=== PATIENT | female | born 1990 | race African-American/Black ===

== ENCOUNTER 2016-12-11 18:44 | Emergency (ER) | payer OTHER ==
[~2016-12-11] VITALS: Ht 157.5 cm; Wt 70.0 kg
[~2016-12-11 18:44] MED LIST: ALBU2.5I INH; TASI150C PO
[2016-12-11 18:46] VITALS: BP 129/69; PULSE 90; RESP 20; TEMP 98.5; O2SAT 96
[2016-12-11 19:30] VITALS: O2SAT 100
[2016-12-11] MEDS ORDERED: SODIUM CHLORIDE 0.9% FLUSH 5 ML FLUSH IVF PRN (19:30)
[2016-12-11 20:01] LABS: AUTOMATED NEUTROPHIL # 4.3 TH/MM3 (1.8-7.7); BASOPHIL # 0.1 TH/MM3 (0-0.2); BASOPHIL % 0.9 % (0.0-2.0); EOSINOPHIL # 0.1 TH/MM3 (0-0.4); EOSINOPHIL % 1.4 % (0.0-4.0); HEMATOCRIT 37.2 % (35.0-46.0); HEMO FLAGS DIFF FINAL; LYMPH % 25.9 % (9.0-44.0); LYMPHOCYTE # 1.7 TH/MM3 (1.0-4.8); MEAN CELL VOLUME 87.3 FL (80.0-100.0); MEAN CORPUSCULAR HEMOGLOBIN 29.8 PG (27.0-34.0); MEAN CORPUSCULAR HGB CONC 34.1 % (32.0-36.0); MONO % 7.5 % (0.0-8.0); NEUT % 64.3 % (16.0-70.0); PLATELET COUNT 276 TH/MM3 (150-450); RED BLOOD COUNT 4.27 MIL/MM3 (4.00-5.30); WHITE BLOOD COUNT 6.7 TH/MM3 (4.0-11.0)
--- NOTE | 2016-12-11 20:01 | RADRPT ---
EXAM DATE/TIME: 12/11/2016 19:41 [facility] COMPARISON: CHEST SINGLE AP, October 03, 2016, 13:51. INDICATIONS : Patient states chest pain for two days. MEDICAL HISTORY : Cardiovascular disease. Leukemia. SURGICAL HISTORY : Tubal ligation. ENCOUNTER: Initial ACUITY: 2 days PAIN SCORE: 9/10 LOCATION: Bilateral chest FINDINGS: A single view of the chest demonstrates the lungs to be symmetrically aerated without evidence of mas s, infiltrate or effusion. The cardiomediastinal contours are unremarkable. Osseous structures are intact. CONCLUSION: No acute disease. Ric Campos MD on December 11, 2016 at 19:59 Board Certified Radiologist. This report was verified electronically.
[2016-12-11 20:10] LABS: APTT (PATIENT) 27.8 SEC (24.3-30.1); PROTHROMBIN TIME - PATIENT 10.7 SEC (9.8-11.6)
[2016-12-11 20:22] LABS: ANION GAP 6 MEQ/L (5-15); BICARBONATE 27.2 MEQ/L (21.0-32.0); BLOOD UREA NITROGEN 10 MG/DL (7-18); CHLORIDE 107 MEQ/L (98-107); GLOMERULAR FILTRATION RATE 83 ML/MIN (>89); MAGNESIUM 2.2 MG/DL (1.5-2.5); POTASSIUM 3.3 MEQ/L (3.5-5.1); SODIUM (NA) 140 MEQ/L (136-145)
--- NOTE | 2016-12-11 20:36 | PD ---
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 Rosa) presents to the ED with c/o chest pain and sob for 2 days. Pt states last time this happened, she had fluid in her lungs. Pt also with rash since last night that is burning. Denies any itching, fever, n/v, abdominal pain, weakness or numbness. PFSH Past Medical History Anemia: Yes Asthma: Yes Blood Disorders: No Cancer: Yes (on chemo) Cardiovascular Problems: Yes Chemotherapy: Yes Chest Pain: Yes Diminished Hearing: No Endocrine: No Fibromyalgia: Yes Genitourinary: No Headaches: Yes Immune Disorder: No Musculoskeletal: Yes (generalized weakness due to leukemia) Neurologic: Yes Psychiatric: No Reproductive: No Respiratory: Yes (ASTHMA) Immunizations Current: Yes Migraines: Yes ?: Not : 4 Para: 2 Miscarriage: 1 : 1 Ectopic : Yes (X 1) Dilation and Curettage (D&C): Yes Tubal Ligation: Yes Past Surgical History Section: Yes Gynecologic Surgery: Yes (C-SEC, TUBAL LIGATION) Other Surgery: Yes (BONE BX) Social History Alcohol Use: No Tobacco Use: No Substance Use: No Allergies-Medications (Allergen,Severity, Reaction): Coded Allergies: Cat Dander (Verified Allergy, Mild, 11/13/16) WATERY EYES Reported Meds & Prescriptions Reported Meds & Active Scripts Active Ala-Patrick Topical (Hydrocortisone (Topical)) 1% Cream 1 Applic TOPICAL BID Ibuprofen 600 Mg Tab 600 Mg PO Q8HR PRN Reported Tasigna (Nilotinib) 150 Mg Cap 150 Mg PO BID Resp: Albuterol 2.5 Mg/3 Ml Neb (Albuterol Sulfate) 2.5 Mg/3 Ml Nebu Unknown Dose INH Q2H PRN Review of Systems Except as stated in HPI: all other systems reviewed are Neg Physical Exam Narrative GENERAL: 26yo F not in distress. SKIN: Multiple skin color papules on face, bilateral arms and legs. HEAD: Atraumatic. Normocephalic. EYES: Pupils equal and round. No scleral icterus. No injection or drainage. ENT: No nasal bleeding or discharge. Mucous membranes pink and moist. NECK: Trachea midline. No JVD. CARDIOVASCULAR: Regular rate and rhythm. No murmur appreciated. RESPIRATORY: No accessory muscle use. Clear to auscultation. Breath sounds equal bilaterally. GASTROINTESTINAL: Abdomen soft, non-tender, nondistended. No rebound tenderness or guarding. MUSCULOSKELETAL: No obvious deformities. No clubbing. No cyanosis. No edema. NEUROLOGICAL: Awake and alert. No obvious cranial nerve deficits. Motor grossly within normal limits. Normal speech. PSYCHIATRIC: Appropriate mood and affect; insight and judgment normal. Data Data Last Documented VS Vital Signs Date Time Temp Pulse Resp B/P Pulse Ox O2 Delivery O2 Flow Rate FiO2 12/11/16 21:04 18 12/11/16 19:32 Room Air 12/11/16 19:30 100 12/11/16 18:46 98.5 90 129/69 Orders Electrocardiogram (12/11/16 19:23) Basic Metabolic Panel (Bmp) (12/11/16 19:23) Ckmb (Isoenzyme) Profile (12/11/16 19:23) Complete Blood Count With Diff (12/11/16 19:23) Magnesium (Mg) (12/11/16 19:23) Prothrombin Time / Inr (Pt) (12/11/16 19:23) Act Partial Throm Time (Ptt) (12/11/16 19:23) Troponin I (12/11/16 19:23) Chest, Single Ap (12/11/16 19:23) Ecg Monitoring (12/11/16 19:23) Bilateral Bp Monitoring (12/11/16 19:23) Iv Access Insert/Monitor (12/11/16 19:23) Oximetry (12/11/16 19:23) Oxygen Administration (12/11/16 19:23) Sodium Chloride 0.9% Flush (Ns Flush) (12/11/16 19:30) Strep Culture (Group A) (12/11/16 19:23) Ct Pulmonary Angiogram (12/11/16 ) Morphine Inj (Morphine Inj) (12/11/16 20:45) Bhcg Screen Qualitative (12/11/16 20:36) Ed Urine Pregnancytest Poc (12/11/16 20:36) Potassium Chloride (Kcl) (12/11/16 21:00) Iohexol 350 Inj (Omnipaque 350 Inj) (12/11/16 21:34) Ketorolac Inj (Toradol Inj) (12/11/16 22:00) Labs Laboratory Tests Test 12/11/16 19:45 White Blood Count 6.7 TH/MM3 Red Blood Count 4.27 MIL/MM3 Hemoglobin 12.7 GM/DL Hematocrit 37.2 % Mean Corpuscular Volume 87.3 FL Mean Corpuscular Hemoglobin 29.8 PG Mean Corpuscular Hemoglobin 34.1 % Concent Red Cell Distribution Width 17.0 % Platelet Count 276 TH/MM3 Mean Platelet Volume 9.3 FL Neutrophils (%) (Auto) 64.3 % Lymphocytes (%) (Auto) 25.9 % Monocytes (%) (Auto) 7.5 % Eosinophils (%) (Auto) 1.4 % Basophils (%) (Auto) 0.9 % Neutrophils # (Auto) 4.3 TH/MM3 Lymphocytes # (Auto) 1.7 TH/MM3 Monocytes # (Auto) 0.5 TH/MM3 Eosinophils # (Auto) 0.1 TH/MM3 Basophils # (Auto) 0.1 TH/MM3 CBC Comment DIFF FINAL Differential Comment Prothrombin Time 10.7 SEC Prothromb Time International 1.0 RATIO Ratio Activated Partial 27.8 SEC Thromboplast Time Sodium Level 140 MEQ/L Potassium Level 3.3 MEQ/L Chloride Level 107 MEQ/L Carbon Dioxide Level 27.2 MEQ/L Anion Gap 6 MEQ/L Blood Urea Nitrogen 10 MG/DL Creatinine 0.97 MG/DL Estimat Glomerular Filtration 83 ML/MIN Rate Random Glucose 94 MG/DL Calcium Level 8.4 MG/DL Magnesium Level 2.2 MG/DL Total Creatine Kinase 86 U/L Troponin I LESS THAN 0.02 NG/ML Beta HCG, Qualitative LESS THAN 1 MIU/ML MDM Medical Decision Making Medical Screen Exam Complete: Yes Emergency Medical Condition: Yes Interpretation(s) EKG: NSR 78bpm. Normal axis. No ST segment elevation or depression. Differential Diagnosis Pleural effusion vs. Pneumonia vs. Narrative Course 26yo F with chest pain and sob for 2 days. Pt has normal VS and saturating at 98% on RA. CXR showed no acute disease. Labs reviewed, WBC normal at 6.7. K : 3.3, repalced orally. Troponin negative. Impression is more musculoskeletal pain but will obtain CT angio to r/o PE. Discussed with Dr. Nascimento who is covering Dr. Rosa and he recommends discharge with NSAID and topical steroid and follow up with dermatology as outpatient. Pt given toradol after morphine because she was still having some pain. Chest wall is tender to palpation. No rash on chest wall. Return precautions given. Diagnosis Primary Impression: Atypical chest pain Patient Instructions: General Instructions Departure Forms: Tests/Procedures Additional Instructions: Please follow up with dermatology for your rash. Please follow up with Dr. Rosa as outpatient. Please return to the ED if your symptoms worsen. Med/Other Pt SpecificInfo: Prescription(s) given Scripts Hydrocortisone (Topical) (Ala-Patrick Topical)1% Cream1 Applic TOPICAL BID #1 TUBE Ref 0 Prov:Shayy Villegas DO 12/11/16 Ibuprofen 600 Mg [id number] Mg PO Q8HR PRN (PAIN) #20 TAB Ref 0 Prov:Shayy Villegas DO 12/11/16 Disposition: 01 DISCHARGE HOME Condition: Stable Shayy Villegas DO Dec 11, 2016 20:36
[2016-12-11 20:41] LABS: CREATINE KINASE 86 U/L (26-192)
[2016-12-11] MEDS ORDERED: MORPHINE SULFATE 4 MG/ML INJ IV PUSH ONE (20:45)
[2016-12-11] MEDS ORDERED: POTASSIUM CHLORIDE 20 MEQ CONTROLLED RELEASE TAB PO ONE (21:00)
[2016-12-11 21:04] VITALS: RESP 18
[2016-12-11] MEDS ORDERED: IOHEXOL 350 MG/ML 10 ML VIAL (for RAD DIAG) IV ONE (21:34)
[2016-12-11] MEDS ORDERED: ALA1CRE2 TOPICAL (21:47)
[2016-12-11] MEDS ORDERED: IBUP-232 PO (21:47)
--- NOTE | 2016-12-11 21:52 | RADRPT ---
EXAM DATE/TIME: 12/11/2016 21:30 [facility] COMPARISON: CT PULMONARY ANGIOGRAM, October 03, 2016, 14:54. INDICATIONS : Short of breath and chest pain following chemo treatment today. IV CONTRAST: 75 cc Omnipaque 350 (iohexol) IV RADIATION DOSE: 23.22 CTDIvol (mGy) MEDICAL HISTORY : Cardiovascular disease. Leukemia. chemo SURGICAL HISTORY : Tubal ligation. ENCOUNTER: Initial ACUITY: 1 day PAIN SCALE: 5/10 LOCATION: chest TECHNIQUE: Volumetric scanning of the chest was performed using a pulmonary embolism protocol MIP images were re constructed. Using automated exposure control and adjustment of the mA and/or kV according to patien t size, radiation dose was kept as low as reasonably achievable to obtain optimal diagnostic quality images. FINDINGS: PULMONARY ARTERIES: No filling defects are seen in the pulmonary arteries through the segmental level. LUNGS: There is no consolidation or pneumothorax . No concerning pulmonary nodule is visualized. PLEURAE: There are small bilateral pleural effusions. MEDIASTINUM: There is good visualization of the great vessels of the middle mediastinum. No evidence of mediastin al or hilar adenopathy/mass. MUSCULOSKELETAL: Within normal limits for patient age. MISCELLANEOUS: The visualized upper abdominal organs demonstrate no acute abnormality. CONCLUSION: 1. No evidence of pulmonary embolism. 2. Small bilateral pleural effusions. Ric Campos MD on December 11, 2016 at 21:41 Board Certified Radiologist. This report was verified electronically.
[2016-12-11] MEDS ORDERED: KETOROLAC TROMETHAMINE 30 MG/ML (IVP) VIAL IV PUSH ONE (22:00)
--- NOTE | 2016-12-12 16:11 | EKG ---
Date Performed: 12/11/2016 Time Performed: 19:45:02 PTAGE: 26 years EKG: Sinus rhythm NONSPECIFIC T-WAVE ABNORMALITY BORDERLINE ECG PREVIOUS TRACING : 10/03/2016 13.13 DOCTOR: Grey Bhatia Interpretating Date/Time 12/12/2016 16:10:19
[2017-03-12] MEDS ORDERED: ALBU.5I NEB (14:19)
[2017-03-12] MEDS ORDERED: TASI150C PO (14:19)
== END 2016-12-11 23:18 | disposition home or self-care (01) ==
LOC: NEPA 18:44
DX: R07.89 Other chest pain (principal); M79.7 Fibromyalgia; R21 Rash and other nonspecific skin eruption; Z92.21 Personal history of antineoplastic chemotherapy
CPT/HCPCS: 71010; 71275; 80048; 82550; 83735; 84484; 84703; 85025; 85610; 85730; 87081; 93005; 96374; 96375; 99285; J1885; J2270; Q9967

== ENCOUNTER 2017-01-29 13:34 | Emergency (ER) | payer MEDICAID, OTHER ==
[~2017-01-29] VITALS: Ht 157.5 cm; Wt 75.0 kg
[~2017-01-29 13:34] MED LIST changes: +ALA1CRE2 TOPICAL; +IBUP-232 PO
[2017-01-29 13:36] VITALS: BP 131/77; PULSE 73; RESP 14; TEMP 98.5; O2SAT 100
[2017-01-29] MEDS ORDERED: SODIUM CHLORIDE 0.9% FLUSH 5 ML FLUSH IVF PRN (14:15)
--- NOTE | 2017-01-29 14:16 | PD ---
HPI Chief Complaint: Chest Pain Time Seen by Provider: 14:10 Travel History International Travel<30 days: No Contact w/Intl Traveler<30days: No Traveled to known affect area: No History of Present Illness HPI 26-year-old female with a history of asthma, rheumatoid arthritis, anemia and CML presents to the emergency department for evaluation of right anterior chest pain radiating to her right arm. Patient states that the pain began last night and worsened this morning while she was at work. States that the pain is sharp and intermittent. States she does feel mildly short of breath. Denies any aggravating or alleviating factors. The pain is nonexertional. States that she has had pain like this multiple times in the past but is unsure what causes her pain. States that she attributes a lot of her pain to her chemotherapy Tasigna. She has not taken anything for her symptoms so far. Denies fever, chills, nausea, vomiting, difficulty breathing, cough or cold symptoms. Denies any history of blood clots. Denies any history of anxiety. States that her mother did from congestive heart failure at age 55. No other complaints. PCP Dr. Melissa. Oncologist Dr. Rosa. [facility] Past Medical History Anemia: Yes Asthma: Yes Blood Disorders: No Cancer: Yes (on chemo) Cardiovascular Problems: Yes Chemotherapy: Yes Chest Pain: Yes Diminished Hearing: No Endocrine: No Fibromyalgia: Yes Genitourinary: No Headaches: Yes Immune Disorder: No Musculoskeletal: Yes (generalized weakness due to leukemia) Neurologic: Yes Psychiatric: No Reproductive: No Respiratory: Yes (ASTHMA) Immunizations Current: Yes Migraines: Yes ?: Not LMP: 01/24/17 : 4 Para: 2 Miscarriage: 1 : 1 Ectopic : Yes (X 1) Dilation and Curettage (D&C): Yes Tubal Ligation: Yes Past Surgical History Section: Yes Gynecologic Surgery: Yes (C-SEC, TUBAL LIGATION) Other Surgery: Yes (BONE BX) Social History Alcohol Use: No Tobacco Use: No Substance Use: No Allergies-Medications (Allergen,Severity, Reaction): Coded Allergies: Cat Dander (Verified Allergy, Mild, 01/29/17) WATERY EYES Reported Meds & Prescriptions Reported Meds & Active Scripts Active Naproxen 500 Mg Tab 500 Mg PO BID 7 Days Ala-Patrick Topical (Hydrocortisone (Topical)) 1% Cream 1 Applic TOPICAL BID Ibuprofen 600 Mg Tab 600 Mg PO Q8HR PRN Reported Tasigna (Nilotinib) 150 Mg Cap 150 Mg PO BID Resp: Albuterol 2.5 Mg/3 Ml Neb (Albuterol Sulfate) 2.5 Mg/3 Ml Nebu Unknown Dose INH Q2H PRN Review of Systems Except as stated in HPI: all other systems reviewed are Neg Physical Exam Narrative GENERAL: Well-nourished and well-developed pleasant patient in no acute distress who is nontoxic appearing. SKIN: Warm and dry. HEAD: Normocephalic and atraumatic. EYES: No injection, drainage, or hyphema noted. PERRLA. EOMI. ENT: No nasal drainage noted. Oropharynx is clear. NECK: Supple and the trachea is midline. CARDIOVASCULAR: Regular rate and rhythm. RESPIRATORY: Breath sounds are equal bilaterally with no accessory muscle use, wheezing, rhonchi, or crackles. GASTROINTESTINAL: Abdomen is soft, non-tender, and nondistended. MUSCULOSKELETAL: No obvious deformities, swelling, cyanosis, or ecchymosis is present throughout the upper and lower extremities. Patient has full range of motion without any signs of neurovascular compromise. NEUROLOGICAL: Awake, alert, and oriented. Normal speech and gait. Cranial nerves are grossly intact. Data Data Last Documented VS Vital Signs Date Time Temp Pulse Resp B/P Pulse Ox O2 Delivery O2 Flow Rate FiO2 01/29/17 14:35 100 Room Air 01/29/17 14:35 82 18 01/29/17 13:36 98.5 131/77 Orders Electrocardiogram (01/29/17 ) Basic Metabolic Panel (Bmp) (01/29/17 14:09) Complete Blood Count With Diff (01/29/17 14:09) Troponin I (01/29/17 14:09) Chest, Single Ap (01/29/17 14:09) Ecg Monitoring (01/29/17 14:09) Iv Access Insert/Monitor (01/29/17 14:09) Oximetry (01/29/17 14:09) Sodium Chloride 0.9% Flush (Ns Flush) (01/29/17 14:15) Creatine Kinase (Cpk) (01/29/17 14:09) Ketorolac Inj (Toradol Inj) (01/29/17 15:45) Labs Laboratory Tests Test 01/29/17 14:29 White Blood Count 6.8 TH/MM3 Red Blood Count 4.13 MIL/MM3 Hemoglobin 12.6 GM/DL Hematocrit 36.7 % Mean Corpuscular Volume 88.7 FL Mean Corpuscular Hemoglobin 30.6 PG Mean Corpuscular Hemoglobin 34.5 % Concent Red Cell Distribution Width 16.5 % Platelet Count 211 TH/MM3 Mean Platelet Volume 9.1 FL Neutrophils (%) (Auto) 63.8 % Lymphocytes (%) (Auto) 26.9 % Monocytes (%) (Auto) 8.0 % Eosinophils (%) (Auto) 0.8 % Basophils (%) (Auto) 0.5 % Neutrophils # (Auto) 4.3 TH/MM3 Lymphocytes # (Auto) 1.8 TH/MM3 Monocytes # (Auto) 0.5 TH/MM3 Eosinophils # (Auto) 0.1 TH/MM3 Basophils # (Auto) 0.0 TH/MM3 CBC Comment DIFF FINAL Differential Comment Sodium Level 138 MEQ/L Potassium Level 3.5 MEQ/L Chloride Level 103 MEQ/L Carbon Dioxide Level 27.3 MEQ/L Anion Gap 8 MEQ/L Blood Urea Nitrogen 10 MG/DL Creatinine 0.77 MG/DL Estimat Glomerular Filtration 108 ML/MIN Rate Random Glucose 78 MG/DL Calcium Level 8.9 MG/DL Total Creatine Kinase 80 U/L Troponin I LESS THAN 0.02 NG/ML MDM Medical Decision Making Medical Screen Exam Complete: Yes Emergency Medical Condition: Yes Differential Diagnosis Chest wall pain versus pleurisy versus angina unlikely versus PE unlikely versus anxiety versus musculoskeletal pain Narrative Course 26-year-old female with a history of leukemia on oral chemotherapy presents to the emergency department for evaluation of right-sided chest pain for 1 day. Patient is afebrile, vital signs are stable. Oxygen saturation is 100% on room air. Physical examination is unremarkable. The patient appears very well overall. EKG shows normal sinus rhythm with no acute ST elevations or depressions. I did review the EMR which shows that the patient has come to the emergency department multiple times in the past several years for atypical chest pain. She has had 7 CT pulmonary angiograms performed and all were negative for PE, her most recent one was done 2 months ago which was negative for PE. I don't think that this is a PE and I don't think that the patient needs another CTA at this time. We will do basic blood work, cardiac enzymes and a chest x-ray. If these are unremarkable the patient will be discharged home on NSAIDs. CBC is unremarkable. BMP is unremarkable. Troponin is less than 0.02. CPK is 80. Chest x-ray is negative for any acute abnormalities. Patient remained stable without complaint while here in the emergency department. Labs and imaging are all reassuring. She'll be discharged with naproxen. Advised follow-up with her PCP. Patient verbalizes understanding and agreement with treatment plan. I discussed the case with my attending physician Dr. Gottlieb who is aware of the patients history, physical examination findings, and treatment plan. Diagnosis Primary Impression: Atypical chest pain Referrals: Primary Care Physician Patient Instructions: Chest Wall Pain (ED), General Instructions Additional Instructions: Take medication as prescribed with food and a full glass of water. Follow-up with your Primary Care Physician. Return to the ED for any acute worsening of symptoms. Med/Other Pt SpecificInfo: Prescription(s) given Scripts Naproxen 500 Mg [id number] Mg PO BID 7 Days Ref 0 Prov:Andres Gottlieb MD 01/29/17 Disposition: 01 DISCHARGE HOME Condition: Stable Terese Best Jan 29, 2017 14:16
[2017-01-29 14:35] VITALS: O2SAT 100
[2017-01-29 15:03] LABS: AUTOMATED NEUTROPHIL # 4.3 TH/MM3 (1.8-7.7); BASOPHIL % 0.5 % (0.0-2.0); EOSINOPHIL # 0.1 TH/MM3 (0-0.4); EOSINOPHIL % 0.8 % (0.0-4.0); HEMATOCRIT 36.7 % (35.0-46.0); HEMO FLAGS DIFF FINAL; LYMPH % 26.9 % (9.0-44.0); LYMPHOCYTE # 1.8 TH/MM3 (1.0-4.8); MEAN CELL VOLUME 88.7 FL (80.0-100.0); MEAN CORPUSCULAR HEMOGLOBIN 30.6 PG (27.0-34.0); MEAN CORPUSCULAR HGB CONC 34.5 % (32.0-36.0); NEUT % 63.8 % (16.0-70.0); PLATELET COUNT 211 TH/MM3 (150-450); RED BLOOD COUNT 4.13 MIL/MM3 (4.00-5.30); RED CELL DISTRIBUTION WIDTH 16.5 % (11.6-17.2); WHITE BLOOD COUNT 6.8 TH/MM3 (4.0-11.0)
--- NOTE | 2017-01-29 15:04 | RADRPT ---
EXAM DATE/TIME: 01/29/2017 14:36 [facility] COMPARISON: CHEST SINGLE AP, December 11, 2016, 19:41. INDICATIONS : Patient started having chest pain and shortness of breath this morning. MEDICAL HISTORY : Leukemia. SURGICAL HISTORY : None. ENCOUNTER: Initial ACUITY: 1 day PAIN SCORE: 10/10 LOCATION: Center of chest FINDINGS: A single view of the chest demonstrates the lungs to be symmetrically aerated without evidence of mas s, infiltrate or effusion. The cardiomediastinal contours are unremarkable. Osseous structures are intact. CONCLUSION: Normal examination. Kingston Harding MD on January 29, 2017 at 15:02 Board Certified Radiologist. This report was verified electronically.
[2017-01-29 15:22] LABS: ANION GAP 8 MEQ/L (5-15); BICARBONATE 27.3 MEQ/L (21.0-32.0); BLOOD UREA NITROGEN 10 MG/DL (7-18); CHLORIDE 103 MEQ/L (98-107); GLOMERULAR FILTRATION RATE 108 ML/MIN (>89); POTASSIUM 3.5 MEQ/L (3.5-5.1); SODIUM (NA) 138 MEQ/L (136-145)
[2017-01-29 15:37] LABS: CREATINE KINASE 80 U/L (26-192)
[2017-01-29] MEDS ORDERED: KETOROLAC TROMETHAMINE 30 MG/ML (IVP) VIAL IV PUSH ONE (15:45)
[2017-01-29] MEDS ORDERED: NAPR500T PO (15:55)
--- NOTE | 2017-01-30 14:05 | EKG ---
Date Performed: 01/29/2017 Time Performed: 14:11:25 PTAGE: 26 years EKG: Sinus rhythm NORMAL ECG PREVIOUS TRACING : 12/11/2016 19.45 DOCTOR: Mason Stein Interpretating Date/Time 01/30/2017 13:57:43
[2017-03-12] MEDS ORDERED: ALBU.5I NEB (14:19)
[2017-03-12] MEDS ORDERED: TASI150C PO (14:19)
== END 2017-01-29 16:20 | disposition home or self-care (01) ==
LOC: NEPE 13:34
DX: R07.89 Other chest pain (principal); M79.7 Fibromyalgia
CPT/HCPCS: 71010; 80048; 82550; 84484; 85025; 93005; 96374; 99285; J1885

== ENCOUNTER 2017-03-21 06:45 | Emergency (ER) | payer MEDICAID, OTHER ==
[~2017-03-21] VITALS: Ht 160 cm; Wt 75.0 kg
[~2017-03-21 06:45] MED LIST changes: -ALA1CRE2 TOPICAL; +ALBU.5I NEB; -ALBU2.5I INH; -IBUP-232 PO
[2017-03-21 06:48] VITALS: BP 143/84; PULSE 115; RESP 14; TEMP 99.8; O2SAT 98
--- NOTE | 2017-03-21 07:29 | PD ---
HPI Chief Complaint: Respiratory Symptoms Time Seen by Provider: 07:16 Travel History International Travel<30 days: No Contact w/Intl Traveler<30days: No Traveled to known affect area: No History of Present Illness HPI The patient is a 26-year-old Bhavya female who presents emergency department for shortness of breath. The patient states her shortness of breath started yesterday, has been constant, present at rest and with exertion. She also complains of mild anterior chest pain described as pressure, nonradiating, located substernally. The patient was going to work earlier today when her shortness of breath progressed and she subsequently called her who drove her to the emergency department. The patient states she was suffering from a panic attack secondary to shortness of breath, however, denies any previous history of panic attacks. 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 The patient is followed by her oncologist, Dr. Rosa. The patient denies any history of hospitalizations in the last 3 months, surgeries and last 3 months, or prolonged travel last 3 months. The patient denies any previous history of pulmonary embolism, DVT, recent lower extremity edema. Symptoms are moderate, there are no alleviating or exacerbating factors. The patient also complains of diffuse body aches, had a similar reaction 7 years ago on medication per her report. PFSH Past Medical History Anemia: Yes Asthma: Yes Blood Disorders: No Cancer: Yes (on chemo) Cardiovascular Problems: Yes Chemotherapy: Yes Chest Pain: Yes Diminished Hearing: No Endocrine: No Fibromyalgia: Yes Genitourinary: No Headaches: Yes Immune Disorder: No Medical other: Yes (leukemia) Musculoskeletal: Yes (generalized weakness due to leukemia) Neurologic: Yes Psychiatric: No Reproductive: No Respiratory: Yes (ASTHMA) Immunizations Current: Yes Migraines: Yes ?: Not LMP: 03/06/17 : 4 Para: 2 Miscarriage: 1 : 1 Ectopic : Yes (X 1) Dilation and Curettage (D&C): Yes Tubal Ligation: Yes Past Surgical History Section: Yes Gynecologic Surgery: Yes (C-SEC, TUBAL LIGATION) Other Surgery: Yes (BONE BX) Social History Alcohol Use: No Tobacco Use: No Substance Use: No Allergies-Medications (Allergen,Severity, Reaction): Coded Allergies: Cat Dander (Verified Allergy, Mild, 5/5/17) WATERY EYES Reported Meds & Prescriptions Reported Meds & Active Scripts Active Reported Albuterol Neb (Albuterol Sulfate) 2.5 Mg/0.5 Ml Neb 2.5 Mg NEB QID NEB Note: The Albuterol Sulfate Inhalation Solution is concentrated and must be diluted. Read complete instructions carefully before using. Tasigna (Nilotinib) 150 Mg Cap 150 Mg PO Q12H Take on empty stomach Review of Systems Except as stated in HPI: all other systems reviewed are Neg General / Constitutional: Positive: Fever HENT: No: Lightheadedness Cardiovascular: Positive: Chest Pain or Discomfort Respiratory: Positive: Cough, Shortness of Breath, Hemoptysis (hemoptysis 1) Gastrointestinal: No: Nausea, Vomiting, Abdominal Pain Genitourinary: No: Dysuria Musculoskeletal: Positive: Myalgias, Arthralgias, No: Edema Neurologic: No: Dizziness Hematologic/Lymphatic: Positive: Other (history of CML) Physical Exam Narrative GENERAL: Awake, alert, very pleasant 26-year-old female who appears her stated age and is in no acute respiratory distress. SKIN: Focused skin assessment warm/dry. HEAD: Atraumatic. Normocephalic. EYES: Pupils equal and round. No scleral icterus. No injection or drainage. ENT: No nasal bleeding or discharge. Mucous membranes pink and moist. NECK: Trachea midline. No JVD. CARDIOVASCULAR: Regular, tachycardic with a heart rate of 115. RESPIRATORY: No accessory muscle use. Clear to auscultation. Breath sounds equal bilaterally. GASTROINTESTINAL: Abdomen soft, non-tender, nondistended. No rebound tenderness. MUSCULOSKELETAL: No obvious deformities. No clubbing. No cyanosis. No edema. Calves are soft bilaterally, negative Homans sign. NEUROLOGICAL: Awake and alert. No obvious cranial nerve deficits. Motor grossly within normal limits. Normal speech. PSYCHIATRIC: Appropriate mood and affect; insight and judgment normal. Data Data Last Documented VS Vital Signs Date Time Temp Pulse Resp B/P Pulse Ox O2 Delivery O2 Flow Rate FiO2 03/21/17 09:32 106 18 122/84 98 Nasal Cannula 2 03/21/17 06:48 99.8 Orders Complete Blood Count With Diff (03/21/17 07:23) Comprehensive Metabolic Panel (03/21/17 07:23) B-Type Natriuretic Peptide (03/21/17 07:23) D-Dimer (03/21/17 07:23) Act Partial Throm Time (Ptt) (03/21/17 07:23) Prothrombin Time / Inr (Pt) (03/21/17 07:23) Magnesium (Mg) (03/21/17 07:23) Ckmb (Isoenzyme) Profile (03/21/17 07:23) Troponin I (03/21/17 07:23) Urinalysis - C+S If Indicated (03/21/17:23) Influenzae A/B Antigen (03/21/17 07:23) Blood Culture (03/21/17 07:23) Iv Access Insert/Monitor (03/21/17:) Electrocardiogram (03/21/17:) Ecg Monitoring (03/21/17:23) Oximetry (03/21/17 07:23) Oxygen Administration (03/21/17 07:23) Chest, Single Ap (03/21/17 07:23) Sodium Chloride 0.9% Flush (Ns Flush) (03/21/17 07:30) Lactic Acid (03/21/17 07:23) Sodium Chlor 0.9% 1000 Ml Inj (Ns 1000 M (03/21/17 07:30) Ondansetron Inj (Zofran Inj) (03/21/17 07:30) Morphine Inj (Morphine Inj) (03/21/17 07:30) Ed Urine Pregnancytest Poc (03/21/17 07:23) Ct Pulmonary Angiogram (03/21/17 ) Iohexol 350 Inj (Omnipaque 350 Inj) (03/21/17 09:30) Morphine Inj (Morphine Inj) (03/21/17 10:00) Labs Laboratory Tests Test 03/21/17 07:45 White Blood Count 9.1 TH/MM3 Red Blood Count 4.46 MIL/MM3 Hemoglobin 14.1 GM/DL Hematocrit 40.0 % Mean Corpuscular Volume 89.7 FL Mean Corpuscular Hemoglobin 31.5 PG Mean Corpuscular Hemoglobin 35.1 % Concent Red Cell Distribution Width 14.5 % Platelet Count 195 TH/MM3 Mean Platelet Volume 9.7 FL Neutrophils (%) (Auto) 85.9 % Lymphocytes (%) (Auto) 5.8 % Monocytes (%) (Auto) 6.9 % Eosinophils (%) (Auto) 1.1 % Basophils (%) (Auto) 0.3 % Neutrophils # (Auto) 7.8 TH/MM3 Lymphocytes # (Auto) 0.5 TH/MM3 Monocytes # (Auto) 0.6 TH/MM3 Eosinophils # (Auto) 0.1 TH/MM3 Basophils # (Auto) 0.0 TH/MM3 CBC Comment DIFF FINAL Differential Comment Prothrombin Time 10.5 SEC Prothromb Time International 1.0 RATIO Ratio Activated Partial 29.1 SEC Thromboplast Time D-Dimer Quantitative (PE/DVT) 1.31 MG/L FEU Urine Color YELLOW Urine Turbidity HAZY Urine pH 7.0 Urine Specific [place] 1.027 Urine Protein TRACE mg/dL Urine Glucose (UA) NEG mg/dL Urine Ketones NEG mg/dL Urine Occult Blood MOD Urine Nitrite NEG Urine Bilirubin NEG Urine Urobilinogen LESS THAN 2.0 MG/DL Urine Leukocyte Esterase MOD Urine RBC 26 /hpf Urine WBC 4 /hpf Urine Squamous Epithelial 9 /hpf Cells Urine Bacteria FEW /hpf Urine Hyaline Casts 1 /lpf Urine Mucus MOD /lpf Microscopic Urinalysis Comment CULT NOT INDICATED Sodium Level 138 MEQ/L Potassium Level 3.7 MEQ/L Chloride Level 104 MEQ/L Carbon Dioxide Level 25.7 MEQ/L Anion Gap 8 MEQ/L Blood Urea Nitrogen 9 MG/DL Creatinine 0.88 MG/DL Estimat Glomerular Filtration 93 ML/MIN Rate Random Glucose 95 MG/DL Lactic Acid Level 1.0 mmol/L Calcium Level 9.1 MG/DL Magnesium Level 1.9 MG/DL Total Bilirubin 0.3 MG/DL Aspartate Amino Transf 15 U/L (AST/SGOT) Alanine Aminotransferase 22 U/L (ALT/SGPT) Alkaline Phosphatase 72 U/L Total Creatine Kinase 80 U/L Troponin I LESS THAN 0.02 NG/ML B-Type Natriuretic Peptide 3 PG/ML Total Protein 9.2 GM/DL Albumin 4.1 GM/DL MDM Medical Decision Making Medical Screen Exam Complete: Yes Emergency Medical Condition: Yes Medical Record Reviewed: Yes Interpretation(s) Laboratory Tests Test 03/21/17 07:45 White Blood Count 9.1 TH/MM3 Red Blood Count 4.46 MIL/MM3 Hemoglobin 14.1 GM/DL Hematocrit 40.0 % Mean Corpuscular Volume 89.7 FL Mean Corpuscular Hemoglobin 31.5 PG Mean Corpuscular Hemoglobin 35.1 % Concent Red Cell Distribution Width 14.5 % Platelet Count 195 TH/MM3 Mean Platelet Volume 9.7 FL Neutrophils (%) (Auto) 85.9 % Lymphocytes (%) (Auto) 5.8 % Monocytes (%) (Auto) 6.9 % Eosinophils (%) (Auto) 1.1 % Basophils (%) (Auto) 0.3 % Neutrophils # (Auto) 7.8 TH/MM3 Lymphocytes # (Auto) 0.5 TH/MM3 Monocytes # (Auto) 0.6 TH/MM3 Eosinophils # (Auto) 0.1 TH/MM3 Basophils # (Auto) 0.0 TH/MM3 CBC Comment DIFF FINAL Differential Comment Prothrombin Time 10.5 SEC Prothromb Time International 1.0 RATIO Ratio Activated Partial 29.1 SEC Thromboplast Time D-Dimer Quantitative (PE/DVT) 1.31 MG/L FEU Urine Color YELLOW Urine Turbidity HAZY Urine pH 7.0 Urine Specific [place] 1.027 Urine Protein TRACE mg/dL Urine Glucose (UA) NEG mg/dL Urine Ketones NEG mg/dL Urine Occult Blood MOD Urine Nitrite NEG Urine Bilirubin NEG Urine Urobilinogen LESS THAN 2.0 MG/DL Urine Leukocyte Esterase MOD Urine RBC 26 /hpf Urine WBC 4 /hpf Urine Squamous Epithelial 9 /hpf Cells Urine Bacteria FEW /hpf Urine Hyaline Casts 1 /lpf Urine Mucus MOD /lpf Microscopic Urinalysis Comment CULT NOT INDICATED Sodium Level 138 MEQ/L Potassium Level 3.7 MEQ/L Chloride Level 104 MEQ/L Carbon Dioxide Level 25.7 MEQ/L Anion Gap 8 MEQ/L Blood Urea Nitrogen 9 MG/DL Creatinine 0.88 MG/DL Estimat Glomerular Filtration 93 ML/MIN Rate Random Glucose 95 MG/DL Lactic Acid Level 1.0 mmol/L Calcium Level 9.1 MG/DL Magnesium Level 1.9 MG/DL Total Bilirubin 0.3 MG/DL Aspartate Amino Transf 15 U/L (AST/SGOT) Alanine Aminotransferase 22 U/L (ALT/SGPT) Alkaline Phosphatase 72 U/L Total Creatine Kinase 80 U/L Troponin I LESS THAN 0.02 NG/ML Total Protein 9.2 GM/DL Albumin 4.1 GM/DL EKG reveals sinus tachycardia with a heart rate of 104. No ischemic changes noted. Date/Time Procedure Status Source Growth 03/21/17 07:40 Aerobic Blood Culture Received Blood Peripheral Pending 03/21/17 07:40 Anaerobic Blood Culture Received Blood Peripheral Pending 03/21/17 07:45 Influenza Types A,B Antigen (GIA) - Final Complete Nasal Aspirate NEGATIVE FOR FLU A AND B ANTIGEN.... 03/21/17 07:55 Aerobic Blood Culture Received Blood Peripheral Pending 03/21/17 07:55 Anaerobic Blood Culture Received Blood Peripheral Pending CT pulmonary angiogram reveals normal examination Differential Diagnosis Differential diagnosis includes pulmonary embolism, pneumonia, pleural effusion , pericarditis, myocarditis, CML exacerbation, medication side effect, influenza , viral syndrome. Narrative Course IV was established, labs are drawn and sent, and the patient was placed on cardiac telemetry monitoring and continuous pulse oximetry monitoring. EKG was ordered and interpreted. D-dimer was sent to lab. The patient was administered IV fluids, morphine, and Zofran. I reviewed the patient's EMR, she was seen by Dr. Villegas in November [address] pulmonary angiogram at that time. Chest x-ray was negative. EKG reveals sinus tachycardia, otherwise unremarkable. Influenza screen was negative. The patient's CT pulmonary angiogram was negative, the patient continued to complain of anterior chest pain and diffuse chest wall pain, therefore, was redosed with morphine. The patient was reevaluated at 10 AM, she still had mild anxiety and chest wall pain. A call was placed to her her movie theater usher/oncologist, Dr. Rosa, at 10:01 AM. I discussed the patient with Dr. Rosa who states the patient can follow-up as an outpatient. Diagnosis Primary Impression: Atypical chest pain Additional Impression: Dyspnea Qualified Code: R06.00 - Dyspnea, unspecified type Patient Instructions: General Instructions Additional Instructions: Medications as directed. Follow-up with her movie theater usher/oncologist. Work excuse for today and tomorrow. Return if symptoms worsen or progress. Med/Other Pt SpecificInfo: Prescription(s) given Scripts Hydrocodone-Acetaminophen (Energy)5-325 mg Tab1 Tab PO Q6H PRN (PAIN) #12 TAB Ref 0 Prov:Andres Gottlieb MD 03/21/17 Ibuprofen 600 Mg [id number] Mg PO Q6H PRN (Pain/Inflammation) #20 TAB Ref 0 Prov:Andres Gottlieb MD 03/21/17 Disposition: 01 DISCHARGE HOME Condition: Stable Andres Gottlieb MD March 21, 2017 07:29
[2017-03-21] MEDS ORDERED: SODIUM CHLOR 0.9% 1000 ML INJ 1,000 ML IV ONE (07:30)
[2017-03-21] MEDS ORDERED: MORPHINE SULFATE 4 MG/ML INJ IV PUSH ONE ×2 (07:30→10:00)
[2017-03-21] MEDS ORDERED: SODIUM CHLORIDE 0.9% FLUSH 10 ML FLUSH IVF PRN (07:30)
[2017-03-21] MEDS ORDERED: ONDANSETRON HCL 4 MG/2 ML VIAL IV PUSH ONE (07:30)
[2017-03-21 07:52] VITALS: BP 127/79; PULSE 116; RESP 18; O2SAT 100
--- NOTE | 2017-03-21 08:05 | RADRPT ---
EXAM DATE/TIME: 03/21/2017 07:37 [facility] COMPARISON: CHEST SINGLE AP, January 29, 2017, 14:36. INDICATIONS : Short of breath. MEDICAL HISTORY : Cardiovascular disease. Leukemia. chemo SURGICAL HISTORY : Tubal ligation. ENCOUNTER: Initial ACUITY: 1 day PAIN SCORE: 10/10 LOCATION: Bilateral chest FINDINGS: Portable AP view of the chest demonstrates a normal-sized cardiac silhouette. No effusion, consolidat ion, or pneumothorax is visualized. The bones and soft tissues demonstrate no acute abnormality. Mult iple EKG lines over the patient. CONCLUSION: No acute cardiopulmonary abnormality is identified. Kingston Barone MD on March 21, 2017 at 8:03 Board Certified Radiologist. This report was verified electronically.
[2017-03-21 08:19] LABS: APTT (PATIENT) 29.1 SEC (24.3-30.1); AUTOMATED NEUTROPHIL # 7.8 TH/MM3 (1.8-7.7); BASOPHIL % 0.3 % (0.0-2.0); EOSINOPHIL # 0.1 TH/MM3 (0-0.4); EOSINOPHIL % 1.1 % (0.0-4.0); HEMO FLAGS DIFF FINAL; LYMPH % 5.8 % (9.0-44.0); LYMPHOCYTE # 0.5 TH/MM3 (1.0-4.8); MEAN CELL VOLUME 89.7 FL (80.0-100.0); MEAN CORPUSCULAR HEMOGLOBIN 31.5 PG (27.0-34.0); MEAN CORPUSCULAR HGB CONC 35.1 % (32.0-36.0); MONO % 6.9 % (0.0-8.0); NEUT % 85.9 % (16.0-70.0); PLATELET COUNT 195 TH/MM3 (150-450); PROTHROMBIN TIME - PATIENT 10.5 SEC (9.8-11.6); RED BLOOD COUNT 4.46 MIL/MM3 (4.00-5.30); RED CELL DISTRIBUTION WIDTH 14.5 % (11.6-17.2); WHITE BLOOD COUNT 9.1 TH/MM3 (4.0-11.0)
[2017-03-21 08:21] LABS: ANION GAP 8 MEQ/L (5-15); BICARBONATE 25.7 MEQ/L (21.0-32.0); BLOOD UREA NITROGEN 9 MG/DL (7-18); CHLORIDE 104 MEQ/L (98-107); GLOMERULAR FILTRATION RATE 93 ML/MIN (>89); MAGNESIUM 1.9 MG/DL (1.5-2.5); POTASSIUM 3.7 MEQ/L (3.5-5.1); SODIUM (NA) 138 MEQ/L (136-145)
[2017-03-21 08:27] LABS: ALKALINE PHOSPHATASE 72 U/L (45-117); ALT (GPT) 22 U/L (10-53); AST (GOT) 15 U/L (15-37); TOTAL BILIRUBIN ADULT 0.3 MG/DL (0.2-1.0)
[2017-03-21 08:34] LABS: CREATINE KINASE 80 U/L (26-192)
[2017-03-21 08:36] LABS: BACTERIA, URINE FEW /hpf; BLOOD, URINE MOD (NEG); COMMENT (UR) CULT NOT INDICATED; CULTURE IF INDICATED CULT NOT INDICATED; GLUCOSE,URINE NEG (NEG); HYALINE CAST, URINE 1 /lpf (RARE); KETONE, URINE NEG (NEG); MUCUS URINE MOD /lpf (OCC); NITRITE,URINE NEG (NEG); SQUAMOUS EPITHELIAL CELL URINE 9 /hpf (0-5); URINE COLOR YELLOW (YELLW/STRAW)
[2017-03-21] MEDS ORDERED: IOHEXOL 350 MG/ML 10 ML VIAL (for RAD DIAG) IV ONE (09:30)
[2017-03-21 09:32] VITALS: BP 122/84; PULSE 106; RESP 18; O2SAT 98
--- NOTE | 2017-03-21 09:55 | RADRPT ---
EXAM DATE/TIME: 03/21/2017 09:07 [facility] COMPARISON: No previous studies available for comparison. INDICATIONS : Chest pain and shortness of breath. IV CONTRAST: 62 cc Omnipaque 350 (iohexol) IV RADIATION DOSE: 9.90 CTDIvol (mGy) MEDICAL HISTORY : Leukemia. Cardiovascular disease SURGICAL HISTORY : None. ENCOUNTER: Initial ACUITY: 1 day PAIN SCALE: 7/10 LOCATION: Bilateral upper chest TECHNIQUE: Volumetric scanning of the chest was performed using a pulmonary embolism protocol MIP images were re constructed. Using automated exposure control and adjustment of the mA and/or kV according to patien t size, radiation dose was kept as low as reasonably achievable to obtain optimal diagnostic quality images. FINDINGS: PULMONARY ARTERIES: No filling defects are seen in the pulmonary arteries through the segmental level. LUNGS: There is no consolidation or pneumothorax . No concerning pulmonary nodule is visualized. PLEURAE: There is no pleural thickening or pleural effusion. MEDIASTINUM: There is good visualization of the great vessels of the middle mediastinum. No evidence of mediastin al or hilar adenopathy/mass. MUSCULOSKELETAL: Within normal limits for patient age. MISCELLANEOUS: The visualized upper abdominal organs demonstrate no acute abnormality. CONCLUSION: Normal examination. Kingston Ruby MD on March 21, 2017 at 9:49 Board Certified Radiologist. This report was verified electronically.
[2017-03-21] MEDS ORDERED: IBUP-232 PO (10:15)
[2017-03-21] MEDS ORDERED: KETOROLAC TROMETHAMINE 30 MG/ML (IVP) VIAL IV PUSH ONE (10:15)
[2017-03-21] MEDS ORDERED: NORC5TAB PO (10:15)
[2017-03-21 10:27] VITALS: BP 132/84; PULSE 111; RESP 18; O2SAT 100
[2017-03-21 10:58] VITALS: BP 126/74
--- NOTE | 2017-03-22 22:09 | EKG ---
Date Performed: 03/21/2017 Time Performed: 08:17:57 PTAGE: 26 years EKG: SINUS TACHYCARDIA ABNORMAL RHYTHM ECG PREVIOUS TRACING : 01/29/2017 14.11 DOCTOR: Tha Irene Interpretating Date/Time 03/22/2017 22:01:42
== END 2017-03-21 11:00 | disposition home or self-care (01) ==
LOC: NEPE 06:45
DX: R07.89 Other chest pain (principal); R06.02 Shortness of breath; R00.0 Tachycardia, unspecified; M79.7 Fibromyalgia; J45.909 Unspecified asthma, uncomplicated
CPT/HCPCS: 71010; 71275; 80053; 81001; 82550; 83605; 83735; 83880; 84484; 84703; 85025; 85379; 85610; 85730; 87040; 87804; 93005; 96361; 96374; 96375; 96376; 99285; J1885; J2270; J2405; J7030; Q9967

== ENCOUNTER 2017-06-24 16:07 | Emergency (ER) | payer MEDICAID, OTHER ==
[~2017-06-24] VITALS: Ht 160 cm; Wt 64.0 kg
[~2017-06-24 16:07] MED LIST changes: +IBUP-232 PO; +NORC5TAB PO
[2017-06-24 16:10] VITALS: BP 125/79; PULSE 89; RESP 15; TEMP 98.4; O2SAT 100
--- NOTE | 2017-06-24 16:47 | PD ---
Physical Exam Time Seen by Provider: 16:47 Narrative 26 y/o female hx of cml, on chemotherapy, presents with 3 days sob, cp, dizziness. Vital signs reviewed. Seen at triage desk. Awaiting bed placement. Data Data Last Documented VS Vital Signs Date Time Temp Pulse Resp B/P Pulse Ox O2 Delivery O2 Flow Rate FiO2 06/24/17 16:10 98.4 89 15 125/79 100 MDM Medical Record Reviewed: Yes Supervised Visit with MERCEDES: Mike Santana Jun 24, 2017 16:47
--- NOTE | 2017-06-24 17:30 | RADRPT ---
EXAM DATE/TIME: 06/24/2017 17:00 [facility] COMPARISON: CHEST PA & LAT, March 15, 2014, 20:37. INDICATIONS : Chest pain and cough. MEDICAL HISTORY : Leukemia. SURGICAL HISTORY : None. ENCOUNTER: Initial ACUITY: 3 days PAIN SCORE: 10/10 LOCATION: Bilateral chest FINDINGS: PA and lateral views of the chest demonstrate the lungs to be symmetrically aerated without evidence of mass, infiltrate or effusion. The cardiomediastinal contours are unremarkable. Osseous structure s are intact. CONCLUSION: No acute disease. Tripp Canseco MD on June 24, 2017 at 17:27 Board Certified Radiologist. This report was verified electronically.
== END 2017-06-24 18:34 | disposition left against medical advice (07) ==
LOC: NED 16:07
DX: R06.02 Shortness of breath (principal); R07.9 Chest pain, unspecified; R42 Dizziness and giddiness; C92.10 Chronic myeloid leukemia, BCR/ABL-positive, not having achieved remission; Z53.21 Procedure and treatment not carried out due to patient leaving prior to being seen by health care provider
CPT/HCPCS: 71020; 99283

== ENCOUNTER 2017-09-17 19:55 | Emergency (ER) | payer MEDICAID, OTHER ==
[2017-09-17 19:58] VITALS: BP 136/78; PULSE 84; RESP 16; TEMP 98.6; O2SAT 100
[2017-09-17] MEDS ORDERED: SODIUM CHLOR 0.9% 1000 ML INJ 1,000 ML IV SCH (20:43)
--- NOTE | 2017-09-17 20:43 | PD ---
HPI Chief Complaint: Cold / Flu Symptoms Time Seen by Provider: 20:31 Travel History International Travel<30 days: No Contact w/Intl Traveler<30days: No Traveled to known affect area: No History of Present Illness HPI 26-year-old female presents emergency Department with complaint of cough 1 week. Reports history of chest pain for years and that she had not she has leukemia. Reports worsening of chest pain with coughing. Describes the chest pain as someone is sitting on her chest. Chest pain 9-10/10. Reports shortness of breath. Reports wheezing intermittently. Has history of asthma and does not and has not used an inhaler. Denies ear pain, nasal congestion, sore throat. Reports started vomiting today. Denies fevers. Reports lower abdominal pain and describes it as a discomfort in that it feels like it is "on fire." Says she thinks it's just associated to straining with vomiting. Denies abnormal vaginal discharge, odor. Has not taken any medications or tried any treatments to alleviate her symptoms. No known aggravating or relieving factors. Denies dysuria. Denies hemoptysis, hematemesis. Denies diarrhea. Dr. Torres is her oncologist. She last had chemotherapy this morning. Dr. Melissa is primary care provider. Allergies to cats. History of asthma and leukemia. Has no other medical complaints. No other modifying factors or associated signs and symptoms. PFSH Past Medical History Anemia: Yes Asthma: Yes Blood Disorders: No Cancer: Yes (on chemo) Cardiovascular Problems: Yes Chemotherapy: Yes Chest Pain: Yes Diminished Hearing: No Endocrine: No Fibromyalgia: Yes Genitourinary: No Headaches: Yes Immune Disorder: No Musculoskeletal: Yes (generalized weakness due to leukemia) Neurologic: Yes Psychiatric: No Reproductive: No Respiratory: Yes (ASTHMA) Immunizations Current: Yes Migraines: Yes : 4 Para: 2 Miscarriage: 1 : 1 Ectopic : Yes (X 1) Dilation and Curettage (D&C): Yes Tubal Ligation: Yes Past Surgical History Section: Yes Gynecologic Surgery: Yes (C-SEC, TUBAL LIGATION) Other Surgery: Yes (BONE BX) Social History Alcohol Use: No Tobacco Use: No Substance Use: No Allergies-Medications (Allergen,Severity, Reaction): Coded Allergies: cat dander (Unverified Allergy, Mild, 09/17/17) WATERY EYES Reported Meds & Prescriptions Reported Meds & Active Scripts Active Reported Albuterol Neb (Albuterol Sulfate) 2.5 Mg/0.5 Ml Neb 2.5 Mg NEB QID NEB Note: The Albuterol Sulfate Inhalation Solution is concentrated and must be diluted. Read complete instructions carefully before using. Tasigna (Nilotinib) 150 Mg Cap 150 Mg PO Q12H Take on empty stomach Review of Systems Except as stated in HPI: all other systems reviewed are Neg Physical Exam Narrative GENERAL: Well-nourished, well-developed black female patient, in no acute distress; afebrile, nontoxic-appearing SKIN: Warm and dry. No rash. HEAD: Atraumatic. Normocephalic. EYES: Pupils equal and round. No scleral icterus. No injection or drainage. ENT: Mucosa pink and moist. No erythema or exudates. No uvular edema. No uvular , palatal, or tonsillar deviation. Airway patent. EARS: Bilateral pinnae and external canals appear within normal limits. Bilateral tympanic membranes without erythema, dullness or perforation. NECK: Trachea midline. No lymphadenopathy. CARDIOVASCULAR: Regular rate and rhythm. No murmur appreciated. RESPIRATORY: No accessory muscle use. Clear to auscultation. Breath sounds equal bilaterally and decreased in bilateral bases. No retractions or tachypnea. No audible wheezing. GASTROINTESTINAL: Abdomen soft, tenderness on palpation to bilateral lower quadrant, nondistended. Hepatic and splenic margins not palpable. Bowel sounds are active 4 quadrants. Bladder nondistended and nontender. MUSCULOSKELETAL: No obvious deformities. No clubbing. No cyanosis. No edema. NEUROLOGICAL: Awake and alert. Oriented 3. No obvious cranial nerve deficits. Motor grossly within normal limits. Normal speech. Moves all extremities. 5/5 strength to all extremities. PSYCHIATRIC: Appropriate mood and affect; insight and judgment normal. Data Data Last Documented VS Vital Signs Date Time Temp Pulse Resp B/P (MAP) Pulse Ox O2 Delivery O2 Flow Rate FiO2 09/17/17 20:44 90 20 100 Room Air 09/17/17 19:58 98.6 136/78 (97) Orders Orders Chest, Single Ap (09/17/17 20:43) Ecg Monitoring (09/17/17 20:43) Iv Access Insert/Monitor (09/17/17 20:43) Oximetry (09/17/17 20:43) Albuterol Neb (Albuterol Neb) (09/17/17 20:45) Sodium Chloride 0.9% Flush (Ns Flush) (09/17/17 20:45) Influenzae A/B Antigen (09/17/17 20:43) Complete Blood Count With Diff (09/17/17 20:43) Comprehensive Metabolic Panel (09/17/17 20:43) Urinalysis - C+S If Indicated (09/17/17 20:43) Ondansetron Inj (Zofran Inj) (09/17/17 20:45) Sodium Chlor 0.9% 1000 Ml Inj (Ns 1000 M (09/17/17 20:43) Electrocardiogram (09/17/17 20:43) Troponin I (09/17/17 20:43) Lipase (09/17/17 20:43) MDM Medical Decision Making Medical Screen Exam Complete: Yes Emergency Medical Condition: Yes Medical Record Reviewed: Yes Differential Diagnosis Asthma exacerbation, pneumonia, PE, influenza Narrative Course 26-year-old female with history of leukemia and currently on chemotherapy with complaint of cough, substernal chest pain and short of breath. History of the chest pain has been present for years and it is currently worse with coughing. She has history of asthma. I discussed the patient with Dr. Villegas, my attending physician, and she will evaluate the patient. CBC, CMP, lipase, urinalysis, troponin ordered. Chest x-ray, normal saline bolus, Zofran, albuterol nebulizer ordered. Influenza ordered. 2100: Dr. Villegas will assume patient care at this time. See her note for final patient disposition. Terese Deal [facility] Sep 17, 2017 20:43
[2017-09-17] MEDS ORDERED: SODIUM CHLORIDE 0.9% FLUSH 10 ML FLUSH IVF PRN (20:45)
[2017-09-17] MEDS ORDERED: RESP: ALBUTEROL 2.5 MG/3 ML NEB (SCH) INH ONE (20:45)
[2017-09-17] MEDS ORDERED: ONDANSETRON HCL 4 MG/2 ML VIAL IVP ONE (20:45)
[2017-09-17 20:55] VITALS: BP 133/71; PULSE 90; RESP 20; O2SAT 100
[2017-09-17] MEDS ORDERED: MORPHINE SULFATE 4 MG/ML INJ IV PUSH ONE ×2 (21:00→22:30)
--- NOTE | 2017-09-17 21:03 | PD ---
Physical Exam Narrative I, Dr. Villegas, have reviewed the advance practice practitioner's documentation and am in agreement, met with the patient face to face, made the diagnosis, and the medical decision making was done by me. *My assessment and Findings: Atypical chest pain vs. pleural effusion vs. pneumonia vs. URI vs. pericarditis vs. PE vs. asthma exacerbation 26yo F with CML and asthma here with chest pain, cough and occasional sob. States she has occasional wheezing. Chest pain is pressure like, midsternal, worst with cough. Also with nausea and NBNB vomiting. Denies any fever, history of PE/DVT, hemoptysis, abdominal pain, urinary complaints, focal weakness or numbness. Labs reviewed, WBC 12.1. Troponin negative. Lipase normal. Influenza negative. CT angio negative for PE. Pt's chest pain is very atypical and do not think it is cardiac. Pt given morphine and pain improved. Pt also given zofran and robitussin. Pt is currently eating potatoes chips in the room and tolerating PO. Return precautions given. Data Data Last Documented VS Vital Signs Date Time Temp Pulse Resp B/P (MAP) Pulse Ox O2 Delivery O2 Flow Rate FiO2 09/17/17 22:30 99 18 127/73 (91) 100 Room Air 09/17/17 21:05 21 09/17/17 19:58 98.6 Orders Orders Ecg Monitoring (09/17/17 20:43) Iv Access Insert/Monitor (09/17/17 20:43) Oximetry (09/17/17 20:43) Albuterol Neb (Albuterol Neb) (09/17/17 20:45) Sodium Chloride 0.9% Flush (Ns Flush) (09/17/17 20:45) Influenzae A/B Antigen (09/17/17 20:43) Complete Blood Count With Diff (09/17/17 20:43) Comprehensive Metabolic Panel (09/17/17 20:43) Urinalysis - C+S If Indicated (09/17/17 20:43) Ondansetron Inj (Zofran Inj) (09/17/17 20:45) Sodium Chlor 0.9% 1000 Ml Inj (Ns 1000 M (09/17/17 20:43) Electrocardiogram (09/17/17 20:43) Troponin I (09/17/17 20:43) Lipase (09/17/17 20:43) Morphine Inj (Morphine Inj) (09/17/17 21:00) Ct Pulmonary Angiogram (09/17/17 ) Ed Urine Pregnancytest Poc (09/17/17 20:58) Guaifen-Cod 200-20 Mg/10ml Liq (Robituss (09/17/17 21:15) Morphine Inj (Morphine Inj) (09/17/17 22:30) Iohexol 350 Inj (Omnipaque 350 Inj) (09/17/17 22:48) Labs Laboratory Tests Test 09/17/17 20:55 White Blood Count 12.1 TH/MM3 Red Blood Count 4.24 MIL/MM3 Hemoglobin 12.7 GM/DL Hematocrit 38.9 % Mean Corpuscular Volume 91.7 FL Mean Corpuscular Hemoglobin 30.0 PG Mean Corpuscular Hemoglobin Concent 32.7 % Red Cell Distribution Width 14.3 % Platelet Count 272 TH/MM3 Mean Platelet Volume 9.2 FL Neutrophils (%) (Auto) 67.5 % Lymphocytes (%) (Auto) 23.6 % Monocytes (%) (Auto) 7.6 % Eosinophils (%) (Auto) 0.5 % Basophils (%) (Auto) 0.8 % Neutrophils # (Auto) 8.2 TH/MM3 Lymphocytes # (Auto) 2.9 TH/MM3 Monocytes # (Auto) 0.9 TH/MM3 Eosinophils # (Auto) 0.1 TH/MM3 Basophils # (Auto) 0.1 TH/MM3 CBC Comment DIFF FINAL Differential Comment Blood Urea Nitrogen 11 MG/DL Creatinine 0.78 MG/DL Random Glucose 79 MG/DL Total Protein 8.3 GM/DL Albumin 3.6 GM/DL Calcium Level 8.6 MG/DL Alkaline Phosphatase 54 U/L Aspartate Amino Transf (AST/SGOT) 11 U/L Alanine Aminotransferase (ALT/SGPT) 20 U/L Total Bilirubin 0.4 MG/DL Sodium Level 137 MEQ/L Potassium Level 3.5 MEQ/L Chloride Level 104 MEQ/L Carbon Dioxide Level 24.9 MEQ/L Anion Gap 8 MEQ/L Estimat Glomerular Filtration Rate 106 ML/MIN Troponin I LESS THAN 0.02 NG/ML Lipase 170 U/L MDM Supervised Visit with [facility]: Yes Interpretation(s) EKG: NSR 94bpm. Normal axis. No ST segment elevation or depression. Diagnosis Primary Impression: Atypical chest pain Patient Instructions: General Instructions Departure Forms: Tests/Procedures Additional Instruction: Please follow up with your primary care physician in 3-7 days. Return to the ED if symptoms worsen. Med/Other Pt SpecificInfo: Prescription(s) given Scripts Ibuprofen (Ibuprofen) 600 Mg Tab 600 MG PO Q8H Y for PAIN, #20 TAB 0 Refills Prov: Shayy Villegas DO 09/17/17 Disposition: 01 DISCHARGE HOME Condition: Stable Shayy Villegas DO Sep 17, 2017 21:03
[2017-09-17 21:05] VITALS: O2SAT 100
[2017-09-17] MEDS ORDERED: guaiFENesin/CODEINE SYRUP 200 MG/20 MG/10 ML CUP PO ONE (21:15)
[2017-09-17 21:18] LABS: AUTOMATED NEUTROPHIL # 8.2 TH/MM3 (1.8-7.7); BASOPHIL # 0.1 TH/MM3 (0-0.2); BASOPHIL % 0.8 % (0.0-2.0); EOSINOPHIL # 0.1 TH/MM3 (0-0.4); EOSINOPHIL % 0.5 % (0.0-4.0); HEMATOCRIT 38.9 % (35.0-46.0); HEMO FLAGS DIFF FINAL; LYMPH % 23.6 % (9.0-44.0); LYMPHOCYTE # 2.9 TH/MM3 (1.0-4.8); MEAN CELL VOLUME 91.7 FL (80.0-100.0); MEAN CORPUSCULAR HGB CONC 32.7 % (32.0-36.0); MONO % 7.6 % (0.0-8.0); NEUT % 67.5 % (16.0-70.0); PLATELET COUNT 272 TH/MM3 (150-450); RED BLOOD COUNT 4.24 MIL/MM3 (4.00-5.30); RED CELL DISTRIBUTION WIDTH 14.3 % (11.6-17.2); WHITE BLOOD COUNT 12.1 TH/MM3 (4.0-11.0)
[2017-09-17 21:44] LABS: ANION GAP 8 MEQ/L (5-15); AST (GOT) 11 U/L (15-37); BICARBONATE 24.9 MEQ/L (21.0-32.0); BLOOD UREA NITROGEN 11 MG/DL (7-18); CHLORIDE 104 MEQ/L (98-107); GLOMERULAR FILTRATION RATE 106 ML/MIN (>89); POTASSIUM 3.5 MEQ/L (3.5-5.1); SODIUM (NA) 137 MEQ/L (136-145)
[2017-09-17 21:45] LABS: ALT (GPT) 20 U/L (10-53)
[2017-09-17 21:49] LABS: ALKALINE PHOSPHATASE 54 U/L (45-117); TOTAL BILIRUBIN ADULT 0.4 MG/DL (0.2-1.0)
[2017-09-17 22:30] VITALS: BP 127/73; PULSE 99; RESP 18; O2SAT 100
[2017-09-17 22:36] VITALS: RESP 18
[2017-09-17] MEDS ORDERED: IOHEXOL 350 MG/ML 10 ML VIAL (for RAD DIAG) IVCONTRAST ONE (22:48)
--- NOTE | 2017-09-17 22:57 | RADRPT ---
EXAM DATE/TIME: 09/17/2017 22:37 [facility] COMPARISON: CT PULMONARY ANGIOGRAM, March 21, 2017, 9:07. INDICATIONS : Midsternal chest pain with cough and shortness of breath IV CONTRAST: 75 cc Omnipaque 350 (iohexol) IV RADIATION DOSE: 12.55 CTDIvol (mGy) MEDICAL HISTORY : Leukemia. SURGICAL HISTORY : Tubal ligation. ENCOUNTER: Initial ACUITY: 1 week PAIN SCALE: 6/10 LOCATION: chest TECHNIQUE: Volumetric scanning of the chest was performed using a pulmonary embolism protocol MIP images were re constructed. Using automated exposure control and adjustment of the mA and/or kV according to patien t size, radiation dose was kept as low as reasonably achievable to obtain optimal diagnostic quality images. DICOM format image data is available electronically for review and comparison. Follow-up recommendations for detected pulmonary nodules are based at a minimum on nodule size and pa tient risk factors according to Fleischner Society Guidelines. FINDINGS: PULMONARY ARTERIES: No filling defects are seen in the pulmonary arteries through the segmental level. LUNGS: There is no consolidation or pneumothorax . No concerning pulmonary nodule is visualized. PLEURAE: There is no pleural thickening or pleural effusion. MEDIASTINUM: There is good visualization of the great vessels of the middle mediastinum. No evidence of mediastin al or hilar adenopathy/mass. MUSCULOSKELETAL: Within normal limits for patient age. MISCELLANEOUS: The visualized upper abdominal organs demonstrate no acute abnormality. CONCLUSION: Negative exam with no evidence of pulmonary embolism. Ric Campos MD on September 17, 2017 at 22:54 Board Certified Radiologist. This report was verified electronically.
[2017-09-17] MEDS ORDERED: IBUP-232 PO (23:10)
--- NOTE | 2017-09-18 13:31 | EKG ---
Date Performed: 09/17/2017 Time Performed: 21:19:05 PTAGE: 26 years EKG: Sinus rhythm NORMAL ECG Compared to prior tracing no significant change PREVIOUS TRACING DOCTOR: Tiburcio Shin Interpretating Date/Time 09/18/2017 13:28:33
== END 2017-09-17 23:29 | disposition home or self-care (01) ==
LOC: NEPD 19:55
DX: R07.89 Other chest pain (principal); R05 Cough; R06.02 Shortness of breath; R10.30 Lower abdominal pain, unspecified; C95.90 Leukemia, unspecified not having achieved remission; J45.909 Unspecified asthma, uncomplicated; D64.9 Anemia, unspecified; M79.7 Fibromyalgia; Z79.51 Long term (current) use of inhaled steroids
CPT/HCPCS: 71275; 80053; 83690; 84484; 84703; 85025; 87804; 93005; 94664; 96361; 96374; 96375; 96376; 99285; J2270; J2405; J7030; J7613; Q9967

== ENCOUNTER 2017-10-06 12:26 | Emergency (ER) | payer MEDICAID ==
[~2017-10-06] VITALS: Ht 170.2 cm; Wt 70.0 kg
[2017-10-06] VITALS (7 sets, daily range): BP systolic 109–149; BP diastolic 66–80; PULSE 81–100; RESP 14–18; TEMP 99; O2SAT 98–99
[~2017-10-06 12:26] MED LIST changes: -NORC5TAB PO
[2017-10-06] MEDS ORDERED: IOHEXOL 350 MG/ML 10 ML VIAL (for RAD DIAG) IVCONTRAST ONE (12:27)
[2017-10-06] MEDS ORDERED: SODIUM CHLOR 0.9% 1000 ML INJ 1,000 ML IV SCH (13:07)
--- NOTE | 2017-10-06 13:11 | PD ---
HPI Chief Complaint: Chest Pain Time Seen by Provider: 12:55 Travel History International Travel<30 days: No Contact w/Intl Traveler<30days: No Traveled to known affect area: No History of Present Illness HPI 27-year-old Afro-[place] female with history of leukemia currently on chemotherapy under Dr. Jacome, presents the emergency department with 4 day history of nausea, vomiting, and fever. Right-sided flank/abdominal pain. She states is gotten worse over the past couple of days. She denies urinary symptoms and decreased output but she has not kept anything down recently. She denies giving and nausea with her normal chemotherapy therapy. States her fever has been as high as 102. PFSH Past Medical History Anemia: Yes Asthma: Yes Blood Disorders: No Cancer: Yes (LEUKEMIA) Cardiovascular Problems: Yes Chemotherapy: Yes Chest Pain: Yes Diminished Hearing: No Endocrine: No Fibromyalgia: Yes Genitourinary: No Headaches: Yes Immune Disorder: No Musculoskeletal: Yes (generalized weakness due to leukemia) Neurologic: Yes Psychiatric: No Reproductive: No Respiratory: Yes (ASTHMA) Immunizations Current: Yes Migraines: Yes Tetanus Vaccination: Unknown Influenza Vaccination: Yes ?: Not : 4 Para: 2 Miscarriage: 1 : 1 Ectopic : Yes (X 1) Dilation and Curettage (D&C): Yes Tubal Ligation: Yes Past Surgical History Section: Yes Gynecologic Surgery: Yes (C-SEC, TUBAL LIGATION) Other Surgery: Yes (BONE BX) Social History Alcohol Use: No Tobacco Use: No Substance Use: No Allergies-Medications (Allergen,Severity, Reaction): Coded Allergies: cat dander (Unverified Allergy, Mild, 10/06/17) WATERY EYES Reported Meds & Prescriptions Reported Meds & Active Scripts Active Ibuprofen 600 Mg Tab 600 Mg PO Q8H PRN Reported Albuterol Neb (Albuterol Sulfate) 2.5 Mg/0.5 Ml Neb 2.5 Mg NEB QID NEB Note: The Albuterol Sulfate Inhalation Solution is concentrated and must be diluted. Read complete instructions carefully before using. Tasigna (Nilotinib) 150 Mg Cap 150 Mg PO Q12H Take on empty stomach Review of Systems Except as stated in HPI: all other systems reviewed are Neg General / Constitutional: Positive: Fever, Chills Eyes: No: Visual changes HENT: No: Headaches Cardiovascular: No: Chest Pain or Discomfort Respiratory: Positive: Cough, No: Shortness of Breath, Wheezing, Sneezing Gastrointestinal: Positive: Nausea, Vomiting, Abdominal Pain, No: Diarrhea Genitourinary: No: Dysuria Musculoskeletal: No: Pain Skin: No Rash Neurologic: No: Weakness Psychiatric: No: Depression Endocrine: No: Polydipsia Hematologic/Lymphatic: No: Easy Bruising Physical Exam Narrative GENERAL: Patient appears mild to moderately ill. Not septic. SKIN: Warm and dry. Color. Normal turgor. HEAD: Atraumatic. Normocephalic. EYES: Pupils equal and round. No scleral icterus. No injection or drainage. ENT: No nasal bleeding or discharge. Mucous membranes pink and moist. TMs are clear bilaterally. Pharynx is clear. Airway is patent. No significant erythema or sinus tenderness. NECK: Trachea midline. Supple and nontender. CARDIOVASCULAR: Regular rate and rhythm. No murmurs gallops or rubs. RESPIRATORY: No accessory muscle use. Coarse breath sounds to auscultation. Breath sounds equal bilaterally. No wheezes rhonchi or rales. GASTROINTESTINAL: Abdomen soft, mildly tender nonspecific findings, nondistended. Hepatic and splenic margins not palpable. Question right CVA tenderness. MUSCULOSKELETAL: Extremities without clubbing, cyanosis, or edema. No obvious deformities. NEUROLOGICAL: Awake and alert. No obvious cranial nerve deficits. Motor grossly within normal limits. Five out of 5 muscle strength in the arms and legs. Normal speech. PSYCHIATRIC: Appropriate mood and affect; insight and judgment normal. Data Data Last Documented VS Vital Signs Date Time Temp Pulse Resp B/P (MAP) Pulse Ox O2 Delivery O2 Flow Rate FiO2 10/06/17 16:56 85 14 130/75 (93) 99 10/06/17 14:42 Room Air 10/06/17 12:28 99.0 Orders Orders Complete Blood Count With Diff (10/06/17 13:07) Comprehensive Metabolic Panel (10/06/17 13:07) Lipase (10/06/17 13:07) Lactic Acid (10/06/17 13:07) Prothrombin Time / Inr (Pt) (10/06/17 13:07) Act Partial Throm Time (Ptt) (10/06/17 13:07) Urinalysis - C+S If Indicated (10/06/17 13:07) Ct Abd/Pel W Iv Contrast(Rout) (10/06/17 13:07) Iv Access Insert/Monitor (10/06/17 13:07) Ecg Monitoring (10/06/17 13:07) Oximetry (10/06/17 13:07) NPO (10/06/17 13:07) Morphine Inj (Morphine Inj) (10/06/17 13:15) Ondansetron Inj (Zofran Inj) (10/06/17 13:15) Sodium Chlor 0.9% 1000 Ml Inj (Ns 1000 M (10/06/17 13:07) Sodium Chloride 0.9% Flush (Ns Flush) (10/06/17 13:15) Ketorolac Inj (Toradol Inj) (10/06/17 13:15) Influenzae A/B Antigen (10/06/17 13:11) Blood Culture (10/06/17 13:11) Cefepime Inj (Maxipime Inj) (10/06/17 14:15) Blood Culture (10/06/17 14:11) Iohexol 350 Inj (Omnipaque 350 Inj) (10/06/17 12:27) Morphine Inj (Morphine Inj) (10/06/17 15:45) Sodium Chlor 0.9% 1000 Ml Inj (Ns 1000 M (10/06/17 17:00) Chest, Single Ap (10/06/17 17:32) Labs Laboratory Tests Test 10/06/17 13:25 10/06/17 16:00 White Blood Count 15.9 TH/MM3 Red Blood Count 4.25 MIL/MM3 Hemoglobin 13.0 GM/DL Hematocrit 39.0 % Mean Corpuscular Volume 91.8 FL Mean Corpuscular Hemoglobin 30.6 PG Mean Corpuscular Hemoglobin Concent 33.3 % Red Cell Distribution Width 14.3 % Platelet Count 232 TH/MM3 Mean Platelet Volume 10.1 FL Neutrophils (%) (Auto) 71.3 % Lymphocytes (%) (Auto) 16.5 % Monocytes (%) (Auto) 10.3 % Eosinophils (%) (Auto) 0.9 % Basophils (%) (Auto) 1.0 % Neutrophils # (Auto) 11.4 TH/MM3 Lymphocytes # (Auto) 2.6 TH/MM3 Monocytes # (Auto) 1.6 TH/MM3 Eosinophils # (Auto) 0.1 TH/MM3 Basophils # (Auto) 0.2 TH/MM3 CBC Comment AUTO DIFF Differential Comment AUTO DIFF CONFIRMED Platelet Estimate NORMAL Platelet Morphology Comment NORMAL Prothrombin Time 10.7 SEC Prothromb Time International Ratio 1.0 RATIO Activated Partial Thromboplast Time 27.1 SEC Blood Urea Nitrogen 9 MG/DL Creatinine 0.72 MG/DL Random Glucose 83 MG/DL Total Protein 8.0 GM/DL Albumin 3.5 GM/DL Calcium Level 9.0 MG/DL Alkaline Phosphatase 57 U/L Aspartate Amino Transf (AST/SGOT) 15 U/L Alanine Aminotransferase (ALT/SGPT) 19 U/L Total Bilirubin 0.2 MG/DL Sodium Level 138 MEQ/L Potassium Level 3.6 MEQ/L Chloride Level 103 MEQ/L Carbon Dioxide Level 27.6 MEQ/L Anion Gap 7 MEQ/L Estimat Glomerular Filtration Rate 116 ML/MIN Lactic Acid Level 0.5 mmol/L Lipase 170 U/L Urine Color YELLOW Urine Turbidity CLEAR Urine pH 7.0 Urine Specific [place] GREATER THAN 1.050 Urine Protein TRACE mg/dL Urine Glucose (UA) NEG mg/dL Urine Ketones NEG mg/dL Urine Occult Blood TRACE Urine Nitrite NEG Urine Bilirubin NEG Urine Urobilinogen LESS THAN 2.0 MG/DL Urine Leukocyte Esterase TRACE Urine RBC 4 /hpf Urine WBC 2 /hpf Urine Squamous Epithelial Cells 6 /hpf Urine Mucus FEW /lpf Microscopic Urinalysis Comment CULT NOT INDICATED MDM Medical Decision Making Medical Screen Exam Complete: Yes Emergency Medical Condition: Yes Medical Record Reviewed: Yes Differential Diagnosis Fever. Influenza. Nausea vomiting. Sepsis. Renal colic. Pyelonephritis. Immunocompromise secondary to history of leukemia. Narrative Course Patient appears medically stable at time of exam. Labs ordered including CBC, CMP, lactic acid, coagulation studies, and urinalysis. Blood cultures are added. CT scan of the abdomen is ordered due to the patient's right-sided flank pain associated with nausea and vomiting. IV access is obtained patient is given 1000 mL was normal saline bolus as well as 2 g IV cefepime per Dr. Hightower's recommendation. Patient also given 4 mg morphine IV as well as 4 mg of ondansetron IV, as well as 30 mg ketorolac IV. CBC comes back showing a leukocytosis of 15.9 Coagulation studies are unremarkable. CMP is unremarkable with a creatinine of 0.72, normal lactic at 0.5. Abdominal CT shows no acute process that would explain her abdominal pain per radiologist. Urinalysis shows no acute process suggestive of infection. Chest x-ray shows no significant infiltrate per radiologist. Call was placed to Dr. Tran covering for Dr. Rsoa who felt the patient did not warrant hospitalization. Patient will be treated with azithromycin Dosepak as well as Zofran 4 mg every 6 hours when necessary #12. Patient take ibuprofen and Tylenol as needed. Patient should follow with Dr. Rosa's office tomorrow or return to emergency Department with worsening symptoms as needed. Diagnosis Primary Impression: Bronchitis Additional Impression: Nausea and vomiting Qualified Codes: R11.2 - Nausea with vomiting, unspecified Referrals: Nilson Rosa MD call for appointment Patient Instructions: Acute Bronchitis (DC), Acute Nausea and Vomiting (ED), General Instructions Additional Instructions: CBC comes back showing a leukocytosis of 15.9 Coagulation studies are unremarkable. CMP is unremarkable with a creatinine of 0.72, normal lactic at 0.5. Abdominal CT shows no acute process that would explain her abdominal pain per radiologist. Urinalysis shows no acute process suggestive of infection. Chest x-ray shows no significant infiltrate per radiologist. Call was placed to Dr. Tran covering for Dr. Rosa who felt the patient did not warrant hospitalization. Patient will be treated with azithromycin Dosepak as well as Zofran 4 mg every 6 hours when necessary #12. Patient take ibuprofen and Tylenol as needed. Patient should follow with Dr. Rosa's office tomorrow or return to emergency Department with worsening symptoms as needed. Scripts Ondansetron (Zofran) 4 Mg Tab 4 MG PO Q6HR Y for NAUSEA OR VOMITING, #20 TAB 0 Refills Prov: Jamia Hightower MD 10/06/17 Azithromycin (Azithromycin) 250 Mg Tab 250 MG PO DIRECTED for Infection, #6 TAB 0 Refills Take 2 tabs (500 mg) on day 1 then 1 tab daily x 4 days. Prov: Jamia Hightower MD 10/06/17 Disposition: 01 DISCHARGE HOME Condition: Stable Isaiah Omer Oct 06, 2017 13:11
[2017-10-06] MEDS ORDERED: MORPHINE SULFATE 4 MG/ML INJ IV PUSH ONE (13:15)
[2017-10-06] MEDS ORDERED: SODIUM CHLORIDE 0.9% FLUSH 10 ML FLUSH IV FLUSH PRN (13:15)
[2017-10-06] MEDS ORDERED: KETOROLAC TROMETHAMINE 30 MG/ML (IVP) VIAL IVP ONE (13:15)
[2017-10-06] MEDS ORDERED: ONDANSETRON HCL 4 MG/2 ML VIAL IVP ONE (13:15)
[2017-10-06 13:48] LABS: AUTOMATED NEUTROPHIL # 11.4 TH/MM3 (1.8-7.7); BASOPHIL # 0.2 TH/MM3 (0-0.2); EOSINOPHIL # 0.1 TH/MM3 (0-0.4); EOSINOPHIL % 0.9 % (0.0-4.0); LYMPH % 16.5 % (9.0-44.0); LYMPHOCYTE # 2.6 TH/MM3 (1.0-4.8); MEAN CELL VOLUME 91.8 FL (80.0-100.0); MEAN CORPUSCULAR HEMOGLOBIN 30.6 PG (27.0-34.0); MEAN CORPUSCULAR HGB CONC 33.3 % (32.0-36.0); MONO % 10.3 % (0.0-8.0); NEUT % 71.3 % (16.0-70.0); PLATELET COUNT 232 TH/MM3 (150-450); RED BLOOD COUNT 4.25 MIL/MM3 (4.00-5.30); RED CELL DISTRIBUTION WIDTH 14.3 % (11.6-17.2); WHITE BLOOD COUNT 15.9 TH/MM3 (4.0-11.0)
[2017-10-06 13:49] LABS: HEMO FLAGS AUTO DIFF
[2017-10-06 13:58] LABS: APTT (PATIENT) 27.1 SEC (24.3-30.1); PROTHROMBIN TIME - PATIENT 10.7 SEC (9.8-11.6)
[2017-10-06] MEDS ORDERED: CEFEPIME INJ 2,000 MG in SODIUM CHLORIDE 0.9% INJ 100 ML IV ONE (14:15)
[2017-10-06 14:20] LABS: ALT (GPT) 19 U/L (10-53); ANION GAP 7 MEQ/L (5-15); AST (GOT) 15 U/L (15-37); BICARBONATE 27.6 MEQ/L (21.0-32.0); BLOOD UREA NITROGEN 9 MG/DL (7-18); CHLORIDE 103 MEQ/L (98-107); GLOMERULAR FILTRATION RATE 116 ML/MIN (>89); PLATELET ESTIMATE SMEAR NORMAL (NORMAL); PLATELET MORPHOLOGY NORMAL (NORMAL); POTASSIUM 3.6 MEQ/L (3.5-5.1); SCAN/DIFF AUTO DIFF CONFIRMED; SODIUM (NA) 138 MEQ/L (136-145)
[2017-10-06 14:22] LABS: ALKALINE PHOSPHATASE 57 U/L (45-117); TOTAL BILIRUBIN ADULT 0.2 MG/DL (0.2-1.0)
[2017-10-06] MEDS ORDERED: MORPHINE SULFATE 2 MG/ML INJ IV PUSH ONE (15:45)
--- NOTE | 2017-10-06 15:48 | RADRPT ---
EXAM DATE/TIME: 10/06/2017 14:50 [facility] COMPARISON: No previous studies available for comparison. INDICATIONS : Abdomen pain for four days with nausea and vomiting. IV CONTRAST: 71 cc Omnipaque 350 (iohexol) IV ORAL CONTRAST: No oral contrast ingested. RADIATION DOSE: 6.64 CTDIvol (mGy) MEDICAL HISTORY : Cardiovascular disease. Leukemia. SURGICAL HISTORY : Tubal ligation. Ectopic,asthma ENCOUNTER: Initial ACUITY: 4 - 6 days PAIN SCALE: 9/10 LOCATION: Abdomen TECHNIQUE: Volumetric scanning of the abdomen and pelvis was performed. Using automated exposure control and ad justment of the mA and/or kV according to patient size, radiation dose was kept as low as reasonably achievable to obtain optimal diagnostic quality images. DICOM format image data is available electro nically for review and comparison. FINDINGS: LOWER LUNGS: The visualized lower lungs are clear. LIVER: Homogeneous density without lesion. There is no dilation of the biliary tree. No calcified gallston es. SPLEEN: Normal size without lesion. PANCREAS: Within normal limits. KIDNEYS: Normal in size and shape. There is no mass, stone or hydronephrosis. ADRENAL GLANDS: Within normal limits. VASCULAR: There is no aortic aneurysm. BOWEL/MESENTERY: The stomach, small bowel, and colon demonstrate no acute abnormality. There is no free intraperitone al air. The appendix and terminal ileum are normal. There is trace free fluid in the posterior cul-de -sac within the pelvis. ABDOMINAL WALL: Within normal limits. RETROPERITONEUM: There is no lymphadenopathy. BLADDER: No wall thickening or mass. REPRODUCTIVE: Fallopian tube embolization coils are present bilaterally. INGUINAL: There is no lymphadenopathy or hernia. MUSCULOSKELETAL: No acute abnormality. CONCLUSION: 1. No abnormality is identified to explain the clinical symptoms. No acute finding is identified. 2. There is trace free fluid in the posterior cul-de-sac a likely physiologic given the small volume and simple appearance. Kingston Barone MD on October 06, 2017 at 15:43 Board Certified Radiologist. This report was verified electronically.
[2017-10-06 16:44] LABS: BLOOD, URINE TRACE (NEG); COMMENT (UR) CULT NOT INDICATED; CULTURE IF INDICATED CULT NOT INDICATED; GLUCOSE,URINE NEG (NEG); KETONE, URINE NEG (NEG); MUCUS URINE FEW /lpf (OCC); NITRITE,URINE NEG (NEG); SQUAMOUS EPITHELIAL CELL URINE 6 /hpf (0-5); URINE COLOR YELLOW (YELLW/STRAW)
[2017-10-06] MEDS ORDERED: SODIUM CHLOR 0.9% 1000 ML INJ 1,000 ML IV ONE (17:00)
[2017-10-06] MEDS ORDERED: ZOFR4TAB PO (18:10)
[2017-10-06] MEDS ORDERED: AZIT250T3 PO (18:10)
--- NOTE | 2017-10-06 18:30 | RADRPT ---
EXAM DATE/TIME: 10/06/2017 17:41 [facility] COMPARISON: CHEST SINGLE AP, March 21, 2017, 7:37. INDICATIONS : Cough, chest pain MEDICAL HISTORY : Cardiovascular disease. Leukemia. SURGICAL HISTORY : Tubal ligation. Ectopic,asthma ENCOUNTER: Initial ACUITY: 1 week PAIN SCORE: 3/10 LOCATION: Bilateral chest FINDINGS: A single view of the chest demonstrates the lungs to be symmetrically aerated without evidence of mas s, infiltrate or effusion. No evidence of pneumothorax. The cardiomediastinal contours are unremark able. Osseous structures are intact. CONCLUSION: The lungs are clear. Popeye Michael MD on October 06, 2017 at 18:28 Board Certified Radiologist. This report was verified electronically.
== END 2017-10-06 19:27 | disposition home or self-care (01) ==
LOC: NEPD 12:26
DX: J40 Bronchitis, not specified as acute or chronic (principal); R11.2 Nausea with vomiting, unspecified; D72.829 Elevated white blood cell count, unspecified; Z85.6 Personal history of leukemia; D64.9 Anemia, unspecified; J45.909 Unspecified asthma, uncomplicated; M79.7 Fibromyalgia; Z79.51 Long term (current) use of inhaled steroids; Z79.899 Other long term (current) drug therapy
CPT/HCPCS: 71010; 74177; 80053; 81001; 83605; 83690; 85025; 85610; 85730; 87040; 87804; 96361; 96365; 96375; 96376; 99285; J0692; J1885; J2270; J2405; J7030; Q9967

== ENCOUNTER 2017-11-05 22:42 | Emergency (ER) | payer MEDICAID ==
[~2017-11-05] VITALS: Ht 160 cm; Wt 70.0 kg
[~2017-11-05 22:42] MED LIST changes: +AZIT250T3 PO; +ZOFR4TAB PO
[2017-11-05] MEDS ORDERED: IOHEXOL 350 MG/ML 10 ML VIAL (for RAD DIAG) IVCONTRAST ONE (22:43)
[2017-11-05 22:44] VITALS: BP 145/87; PULSE 83; RESP 18; TEMP 98.7; O2SAT 97
[2017-11-05] MEDS ORDERED: SODIUM CHLORIDE 0.9% FLUSH 10 ML FLUSH IVF PRN (23:15)
--- NOTE | 2017-11-05 23:22 | PD ---
HPI Chief Complaint: Chest Pain Time Seen by Provider: 23:08 Travel History International Travel<30 days: No Contact w/Intl Traveler<30days: No Traveled to known affect area: No History of Present Illness HPI 27 year-old female presents to the emergency department for complaint of 2-3 days of headache chest pain and intermittent tingling of the left upper extremity. Patient states she's had these symptoms before. Patient is been seen several times for chest pain complaint. Patient has history of CML diagnosed in 2009. Patient is followed by Dr. Rosa as her oncologist. Patient is currently on Tasigna chemotherapy. Patient has been seen several times for complaint of chest pain to [facility] and through [facility]. Patient does not report any fatigue fever visual disturbance sore throat earache dyspnea abdominal pain nausea vomiting diarrhea dysuria frequency urgency flank pain joint pain swelling or lower extremity pain and swelling. Patient does not complain of fever chills or night sweats. No change in weight. Patient does complain of occasional dizziness. Patient's had no near- syncope or syncope. Patient also has history of chronic anemia and asthma has had previous rhabdomyolysis on chemotherapy Sprycel and elevated CKs on Tasigna. Patient denies last period was 27 October and normal for her. Patient is status post tubal ligation. Patient has been taking ibuprofen without symptomatic relief. The patient rates her pain 9/10 in intensity. [facility] Past Medical History Narrative Medical Anemia asthma CML with chemotherapy tubal ligation no tobacco use nursing notes. Anemia: Yes Asthma: Yes Blood Disorders: No Cancer: Yes (LEUKEMIA) Cardiovascular Problems: Yes Chemotherapy: Yes Chest Pain: Yes Diminished Hearing: No Endocrine: No Fibromyalgia: Yes Genitourinary: No Headaches: Yes Immune Disorder: No Musculoskeletal: Yes (generalized weakness due to leukemia) Neurologic: Yes Psychiatric: No Reproductive: No Respiratory: Yes (ASTHMA) Immunizations Current: Yes Migraines: Yes Tetanus Vaccination: < 5 Years Influenza Vaccination: Yes ?: Not LMP: 10/17/2017 : 4 Para: 2 Miscarriage: 1 : 1 Ectopic : Yes (X 1) Dilation and Curettage (D&C): Yes Tubal Ligation: Yes Past Surgical History Section: Yes Gynecologic Surgery: Yes (C-SEC, TUBAL LIGATION) Other Surgery: Yes (BONE BX) Social History Alcohol Use: No Tobacco Use: No Substance Use: No Allergies-Medications (Allergen,Severity, Reaction): Coded Allergies: cat dander (Unverified Allergy, Mild, 11/05/17) WATERY EYES Reported Meds & Prescriptions Reported Meds & Active Scripts Active Ibuprofen 600 Mg Tab 600 Mg PO Q8H PRN Reported Tasigna (Nilotinib) 150 Mg Cap 150 Mg PO Q12H Take on empty stomach Review of Systems Except as stated in HPI: all other systems reviewed are Neg Physical Exam Narrative GENERAL: Well developed well nourished female in no acute distress no respiratory distress SKIN: Warm and dry. HEAD: Atraumatic. Normocephalic. EYES: Pupils equal and round. No scleral icterus. No injection or drainage. ENT: No nasal bleeding or discharge. Mucous membranes pink and moist. NECK: Trachea midline. No JVD. CARDIOVASCULAR: Regular rate and rhythm. RESPIRATORY: No accessory muscle use. Clear to auscultation. Breath sounds equal bilaterally. GASTROINTESTINAL: Abdomen soft, non-tender, nondistended. Hepatic and splenic margins not palpable. MUSCULOSKELETAL: Extremities without clubbing, cyanosis, or edema. No obvious deformities. NEUROLOGICAL: Awake and alert. No obvious cranial nerve deficits. Motor grossly within normal limits. Five out of 5 muscle strength in the arms and legs. Normal speech. PSYCHIATRIC: Appropriate mood and affect; insight and judgment normal. Data Data Last Documented VS Vital Signs Date Time Temp Pulse Resp B/P (MAP) Pulse Ox O2 Delivery O2 Flow Rate FiO2 11/06/17 01:57 11/05/17 22:44 98.7 83 18 97 Room Air Orders Orders Electrocardiogram (11/05/17 23:08) Basic Metabolic Panel (Bmp) (11/05/17 23:08) Ckmb (Isoenzyme) Profile (11/05/17 23:08) Complete Blood Count With Diff (11/05/17 23:08) D-Dimer (11/05/17 23:08) Magnesium (Mg) (11/05/17 23:08) Prothrombin Time / Inr (Pt) (11/05/17 23:08) Act Partial Throm Time (Ptt) (11/05/17 23:08) Troponin I (11/05/17 23:08) Chest, Single Ap (11/05/17 23:08) Ecg Monitoring (11/05/17 23:08) Bilateral Bp Monitoring (11/05/17 23:08) Iv Access Insert/Monitor (11/05/17 23:08) Oximetry (11/05/17 23:08) Oxygen Administration (11/05/17 23:08) Sodium Chloride 0.9% Flush (Ns Flush) (11/05/17 23:15) Urinalysis - C+S If Indicated (11/05/17 23:08) Ed Urine Pregnancytest Poc (11/05/17 23:08) Ct Pulmonary Angiogram (11/06/17 ) Ct Brain W/O Iv Contrast(Rout) (11/06/17 ) Ketorolac Inj (Toradol Inj) (11/06/17 00:15) Sodium Chlor 0.9% 1000 Ml Inj (Ns 1000 M (11/06/17 00:15) CKMB (11/05/17 23:25) CKMB% (11/05/17 23:25) Iohexol 350 Inj (Omnipaque 350 Inj) (11/05/17 22:43) Ondansetron Inj (Zofran Inj) (11/06/17 01:15) Morphine Inj (Morphine Inj) (11/06/17 01:15) Morphine Inj (Morphine Inj) (11/06/17 01:45) Ed Discharge Order (11/06/17 01:38) Labs Laboratory Tests Test 11/05/17 23:25 11/06/17 00:07 White Blood Count 7.9 TH/MM3 Red Blood Count 4.24 MIL/MM3 Hemoglobin 12.6 GM/DL Hematocrit 38.1 % Mean Corpuscular Volume 89.8 FL Mean Corpuscular Hemoglobin 29.8 PG Mean Corpuscular Hemoglobin Concent 33.1 % Red Cell Distribution Width 14.7 % Platelet Count 312 TH/MM3 Mean Platelet Volume 8.4 FL Neutrophils (%) (Auto) 56.7 % Lymphocytes (%) (Auto) 33.5 % Monocytes (%) (Auto) 8.2 % Eosinophils (%) (Auto) 0.8 % Basophils (%) (Auto) 0.8 % Neutrophils # (Auto) 4.5 TH/MM3 Lymphocytes # (Auto) 2.6 TH/MM3 Monocytes # (Auto) 0.7 TH/MM3 Eosinophils # (Auto) 0.1 TH/MM3 Basophils # (Auto) 0.1 TH/MM3 CBC Comment DIFF FINAL Differential Comment Prothrombin Time 10.3 SEC Prothromb Time International Ratio 1.0 RATIO Activated Partial Thromboplast Time 26.8 SEC D-Dimer Quantitative (PE/DVT) 0.67 MG/L FEU Blood Urea Nitrogen 14 MG/DL Creatinine 0.82 MG/DL Random Glucose 86 MG/DL Calcium Level 8.9 MG/DL Magnesium Level 1.8 MG/DL Sodium Level 137 MEQ/L Potassium Level 3.6 MEQ/L Chloride Level 103 MEQ/L Carbon Dioxide Level 27.0 MEQ/L Anion Gap 7 MEQ/L Estimat Glomerular Filtration Rate 100 ML/MIN Total Creatine Kinase 108 U/L Creatine Kinase MB LESS THAN 0.5 NG/ML Troponin I LESS THAN 0.02 NG/ML Urine Color LIGHT-YELLOW Urine Turbidity CLEAR Urine pH 7.5 Urine Specific [place] 1.012 Urine Protein NEG mg/dL Urine Glucose (UA) NEG mg/dL Urine Ketones NEG mg/dL Urine Occult Blood SMALL Urine Nitrite NEG Urine Bilirubin NEG Urine Urobilinogen LESS THAN 2.0 MG/DL Urine Leukocyte Esterase NEG Urine RBC 2 /hpf Urine WBC LESS THAN 1 /hpf Urine Squamous Epithelial Cells 4 /hpf Urine Amorphous Sediment RARE Urine Bacteria RARE /hpf Urine Mucus FEW /lpf Microscopic Urinalysis Comment CULT NOT INDICATED MDM Medical Decision Making Medical Screen Exam Complete: Yes Emergency Medical Condition: Yes Medical Record Reviewed: Yes Interpretation(s) EKG: Normal sinus rhythm rate [address] elevation injury pattern or ectopy noted Last Impressions Head CT 11/06/17 0000 Signed Impressions: Service Date/Time: October 00:44 - CONCLUSION: No acute disease. Kingston Harding MD CT Angiography 11/06/17 0000 Signed Impressions: Service Date/Time: October 00:43 - CONCLUSION: No pulmonary embolus. Kingston Harding MD Chest X-Ray 11/05/17 2308 Signed Impressions: Service Date/Time: Sunday, November 05, 2017 23:19 - CONCLUSION: The lungs are clear. Popeye Michael MD CBC & BMP Diagram 11/05/17 23:25 Calcium Level 8.9, Magnesium Level 1.8 Vital Signs Date Time Temp Pulse Resp B/P (MAP) Pulse Ox O2 Delivery O2 Flow Rate FiO2 11/05/17 22:44 98.7 83 18 145/87 (106) 97 Room Air Troponin I: Less than 0.02, not elevated Differential Diagnosis Chest pain, musculoskeletal pain, ACS, DC, PE, pneumonia, pneumothorax Narrative Course Patient placed on radiation monitor with continuous pulse oximetry IV access obtained specimens collected and sent for resulting EKG performed shows normal sinus rhythm rate [address] elevation injury pattern or ectopy noted. Patient administered Toradol and IV fluids as well as a one-time dose of morphine sulfate 2 mg Patient informed of imaging results and lab results requested additional dose of pain medicine as she reports she has a high pain tolerance and needs more medication. Patient administered an additional dose of morphine sulfate 2 mg and is stable for outpatient management and follow-up with her primary care provider. Diagnosis Primary Impression: Atypical chest pain Referrals: Nilson Rosa MD call for appointment Patient Instructions: General Instructions, Narcotic given in the ED Departure Forms: Tests/Procedures, Work Release Special Instructions: no work x 1 day Additional Instructions: Follow-up with your oncologist; call office in a.m. to schedule follow-up appointment Return to the emergency department for any concerns Increase fluid hydration May use [id number] acetaminophen per package directions every 4-6 hours for minor pain or for fever 100.4F or greater may use [id number] ibuprofen/Advil/Motrin every 6-8 hours for fever 100.4 F or greater or for pain associated with inflammation No work times one day Med/Other Pt SpecificInfo: No Change to Meds Disposition: 01 DISCHARGE HOME Condition: Stable Tnoia Corcoran MD Nov 05, 2017 23:22
[2017-11-05 23:32] LABS: AUTOMATED NEUTROPHIL # 4.5 TH/MM3 (1.8-7.7); BASOPHIL # 0.1 TH/MM3 (0-0.2); BASOPHIL % 0.8 % (0.0-2.0); EOSINOPHIL # 0.1 TH/MM3 (0-0.4); EOSINOPHIL % 0.8 % (0.0-4.0); HEMATOCRIT 38.1 % (35.0-46.0); HEMOGLOBIN 12.6 GM/DL (11.6-15.3); LYMPH % 33.5 % (9.0-44.0); LYMPHOCYTE # 2.6 TH/MM3 (1.0-4.8); MEAN CELL VOLUME 89.8 FL (80.0-100.0); MEAN CORPUSCULAR HEMOGLOBIN 29.8 PG (27.0-34.0); MEAN CORPUSCULAR HGB CONC 33.1 % (32.0-36.0); MEAN PLATELET VOLUME 8.4 FL (7.0-11.0); MONO % 8.2 % (0.0-8.0); MONOCYTE # 0.7 TH/MM3 (0-0.9); NEUT % 56.7 % (16.0-70.0); PLATELET COUNT 312 TH/MM3 (150-450); RED BLOOD COUNT 4.24 MIL/MM3 (4.00-5.30); RED CELL DISTRIBUTION WIDTH 14.7 % (11.6-17.2); WHITE BLOOD COUNT 7.9 TH/MM3 (4.0-11.0)
--- NOTE | 2017-11-05 23:36 | RADRPT ---
EXAM DATE/TIME: 11/05/2017 23:19 [facility] COMPARISON: CHEST SINGLE AP, October 06, 2017, 17:41. INDICATIONS : Chest pain. MEDICAL HISTORY : Cardiovascular disease. Leukemia. Asthma SURGICAL HISTORY : Tubal ligation. ENCOUNTER: Initial ACUITY: 1 day PAIN SCORE: 3/10 LOCATION: Bilateral chest FINDINGS: A single view of the chest demonstrates the lungs to be symmetrically aerated without evidence of mas s, infiltrate or effusion. The cardiomediastinal contours are unremarkable. Osseous structures are intact. CONCLUSION: The lungs are clear. Popeye Michael MD on November 05, 2017 at 23:34 Board Certified Radiologist. This report was verified electronically.
[2017-11-05 23:45] LABS: PROTHROMBIN TIME - PATIENT 10.3 SEC (9.8-11.6)
[2017-11-05 23:57] LABS: D-DIMER 0.67 MG/L FEU (0.00-0.50)
[2017-11-06 00:04] LABS: BLOOD UREA NITROGEN 14 MG/DL (7-18); CALCIUM 8.9 MG/DL (8.5-10.1); CHLORIDE 103 MEQ/L (98-107); CREATININE 0.82 MG/DL (0.50-1.00); GLOMERULAR FILTRATION RATE 100 ML/MIN (>89); GLUCOSE,RANDOM 86 MG/DL (74-106); MAGNESIUM 1.8 MG/DL (1.5-2.5); SODIUM (NA) 137 MEQ/L (136-145)
[2017-11-06 00:08] LABS: TROPONIN I LESS THAN 0.02 NG/ML (0.02-0.05)
[2017-11-06] MEDS ORDERED: SODIUM CHLOR 0.9% 1000 ML INJ 1,000 ML IV ONE (00:15)
[2017-11-06] MEDS ORDERED: KETOROLAC TROMETHAMINE 30 MG/ML (IVP) VIAL IV PUSH ONE (00:15)
[2017-11-06 00:39] LABS: AMORPHOUS SEDIMENT, URINE RARE; BACTERIA, URINE RARE /hpf; BILIRUBIN, URINE NEG (NEG); BLOOD, URINE SMALL (NEG); GLUCOSE,URINE NEG (NEG); KETONE, URINE NEG (NEG); MUCUS URINE FEW /lpf (OCC); NITRITE,URINE NEG (NEG); PH, URINE 7.5 (5.0-8.5); SQUAMOUS EPITHELIAL CELL URINE 4 /hpf (0-5); URINE COLOR LIGHT-YELLOW (YELLW/STRAW); URINE LEUKOCYTE ESTERASE NEG (NEG)
--- NOTE | 2017-11-06 01:09 | RADRPT ---
EXAM DATE/TIME: 11/06/2017 00:44 [facility] COMPARISON: CT BRAIN W/O CONTRAST, July 28, 2016, 20:04. INDICATIONS : Cephalgia. RADIATION DOSE: 56.35 CTDIvol (mGy) MEDICAL HISTORY : Leukemia. Chemotherapy SURGICAL HISTORY : Tubal ligation. ENCOUNTER: Initial ACUITY: 1 day PAIN SCALE: 6/10 LOCATION: cranial TECHNIQUE: Multiple contiguous axial images were obtained of the head. Using automated exposure control and adj ustment of the mA and/or kV according to patient size, radiation dose was kept as low as reasonably a chievable to obtain optimal diagnostic quality images. DICOM format image data is available electro nically for review and comparison. FINDINGS: CEREBRUM: The ventricles are normal for age. No evidence of midline shift, mass lesion, hemorrhage or acute in farction. No extra-axial fluid collections are seen. POSTERIOR FOSSA: The cerebellum and brainstem are intact. The 4th ventricle is midline. The cerebellopontine angle i s unremarkable. EXTRACRANIAL: The visualized portion of the orbits is intact. SKULL: The calvaria is intact. No evidence of skull fracture. CONCLUSION: No acute disease. Kingston Harding MD on November 06, 2017 at 1:07 Board Certified Radiologist. This report was verified electronically.
--- NOTE | 2017-11-06 01:10 | RADRPT ---
EXAM DATE/TIME: 11/06/2017 00:43 [facility] COMPARISON: CT PULMONARY ANGIOGRAM, September 17, 2017, 22:37. INDICATIONS : Chest discomfort. IV CONTRAST: 75 cc Omnipaque 350 (iohexol) IV RADIATION DOSE: 8.65 CTDIvol (mGy) MEDICAL HISTORY : Leukemia. Chemotherapy SURGICAL HISTORY : Tubal ligation. ENCOUNTER: Initial ACUITY: 1 day PAIN SCALE: 5/10 LOCATION: Bilateral chest TECHNIQUE: Volumetric scanning of the chest was performed using a pulmonary embolism protocol MIP images were re constructed. Using automated exposure control and adjustment of the mA and/or kV according to patien t size, radiation dose was kept as low as reasonably achievable to obtain optimal diagnostic quality images. DICOM format image data is available electronically for review and comparison. Follow-up recommendations for detected pulmonary nodules are based at a minimum on nodule size and pa tient risk factors according to Fleischner Society Guidelines. FINDINGS: PULMONARY ARTERIES: No filling defects are seen in the pulmonary arteries through the segmental level. LUNGS: There is no consolidation or pneumothorax . No concerning pulmonary nodule is visualized. PLEURAE: There is no pleural thickening or pleural effusion. MEDIASTINUM: There is good visualization of the great vessels of the middle mediastinum. No evidence of mediastin al or hilar adenopathy/mass. MUSCULOSKELETAL: Within normal limits for patient age. MISCELLANEOUS: The visualized upper abdominal organs demonstrate no acute abnormality. CONCLUSION: No pulmonary embolus. Kingston Harding MD on November 06, 2017 at 1:08 Board Certified Radiologist. This report was verified electronically.
[2017-11-06] MEDS ORDERED: MORPHINE SULFATE 2 MG/ML INJ IV PUSH ONE ×2 (01:15→01:45)
[2017-11-06] MEDS ORDERED: ONDANSETRON HCL 4 MG/2 ML VIAL IV PUSH ONE (01:15)
--- NOTE | 2017-11-06 15:42 | EKG ---
Date Performed: 11/05/2017 Time Performed: 23:29:59 PTAGE: 27 years EKG: Sinus rhythm NORMAL ECG PREVIOUS TRACING : 09/17/2017 21.19 Compared to prior tracing no significant change DOCTOR: Eliot Rooney Interpretating Date/Time 11/06/2017 15:41:30
== END 2017-11-06 02:22 | disposition home or self-care (01) ==
LOC: NEPC 22:42
DX: R07.89 Other chest pain (principal); R51 Headache; R20.2 Paresthesia of skin; R42 Dizziness and giddiness; D64.9 Anemia, unspecified; J45.909 Unspecified asthma, uncomplicated; M79.7 Fibromyalgia; Z85.6 Personal history of leukemia; Z79.899 Other long term (current) drug therapy
CPT/HCPCS: 70450; 71010; 71275; 80048; 81001; 82550; 82552; 83735; 84484; 84703; 85025; 85379; 85610; 85730; 93005; 96361; 96374; 96375; 96376; 99285; J1885; J2270; J2405; J7030; Q9967

== ENCOUNTER 2017-12-08 10:12 | Emergency (ER) | payer MEDICAID ==
[2017-12-08] MEDS ORDERED: SODIUM CHLORIDE 0.9% FLUSH 10 ML FLUSH IV FLUSH (11:15)
[2017-12-08] MEDS: SODIUM CHLOR 0.9% 1000 ML INJ 1,000 ML IV (11:35)
[2017-12-08] MEDS: ONDANSETRON HCL 4 MG/2 ML VIAL IVP (11:36)
[2017-12-08 11:54] LABS: BILIRUBIN, URINE NEG (NEG); BLOOD, URINE SMALL (NEG); COMMENT (UR) CULT NOT INDICATED; CULTURE IF INDICATED CULT NOT INDICATED; GLUCOSE,URINE NEG (NEG); KETONE, URINE NEG (NEG); MUCUS URINE FEW /lpf (OCC); NITRITE,URINE NEG (NEG); SQUAMOUS EPITHELIAL CELL URINE <1 /hpf (0-5); URINE COLOR LIGHT-YELLOW (YELLW/STRAW); URINE LEUKOCYTE ESTERASE NEG (NEG)
[2017-12-08 11:57] LABS: AUTOMATED NEUTROPHIL # 3.2 TH/MM3 (1.8-7.7); BASOPHIL # 0.1 TH/MM3 (0-0.2); BASOPHIL % 1.1 % (0.0-2.0); EOSINOPHIL # 0.2 TH/MM3 (0-0.4); HEMATOCRIT 39.2 % (35.0-46.0); HEMO FLAGS DIFF FINAL; HEMOGLOBIN 12.9 GM/DL (11.6-15.3); LYMPH % 30.4 % (9.0-44.0); LYMPHOCYTE # 1.8 TH/MM3 (1.0-4.8); MEAN CELL VOLUME 90.5 FL (80.0-100.0); MEAN CORPUSCULAR HEMOGLOBIN 29.9 PG (27.0-34.0); MONO % 11.1 % (0.0-8.0); MONOCYTE # 0.7 TH/MM3 (0-0.9); NEUT % 53.4 % (16.0-70.0); PLATELET COUNT 212 TH/MM3 (150-450); RED BLOOD COUNT 4.33 MIL/MM3 (4.00-5.30)
[2017-12-08 12:12] LABS: ALBUMIN 3.7 GM/DL (3.4-5.0); ALT (GPT) 18 U/L (10-53); ANION GAP 5 MEQ/L (5-15); AST (GOT) 13 U/L (15-37); BICARBONATE 26.9 MEQ/L (21.0-32.0); BLOOD UREA NITROGEN 9 MG/DL (7-18); CALCIUM 8.5 MG/DL (8.5-10.1); CHLORIDE 105 MEQ/L (98-107); CREATININE 0.69 MG/DL (0.50-1.00); GLOMERULAR FILTRATION RATE 122 ML/MIN (>89); GLUCOSE,RANDOM 85 MG/DL (74-106); POTASSIUM 3.8 MEQ/L (3.5-5.1); SODIUM (NA) 137 MEQ/L (136-145)
[2017-12-08 12:15] LABS: ALKALINE PHOSPHATASE 59 U/L (45-117); TOTAL BILIRUBIN ADULT 0.3 MG/DL (0.2-1.0); TOTAL PROTEIN 8.7 GM/DL (6.4-8.2)
[2017-12-08 12:16] LABS: LACTIC ACID 0.5 mmol/L (0.4-2.0)
[2017-12-08] MEDS: KETOROLAC TROMETHAMINE 30 MG/ML (IVP) VIAL IV PUSH (12:17)
== END 2017-12-08 13:15 | disposition home or self-care (01) ==
LOC: NEPD 10:12
DX: J01.40 Acute pansinusitis, unspecified (principal)
CPT/HCPCS: 71045; 80053; 81001; 83605; 85025; 87804; 87804-59; 96361; 96374; 96375; 99284-25

== ENCOUNTER 2018-01-29 10:47 | Observation (INO) | payer MEDICAID ==
[~2018-01-29] VITALS: Ht 157.5 cm; Wt 70.0 kg
[2018-01-29] VITALS (9 sets, daily range): BP systolic 106–146; BP diastolic 59–79; PULSE 72–96; RESP 16–20; TEMP 98–98.6; O2SAT 98–100
[~2018-01-29 10:47] MED LIST changes: -ALBU.5I NEB; +AUGM875T3 PO; -AZIT250T3 PO; +FLUT1SPR5 EACH NARE
[2018-01-29] MEDS ORDERED: ACETAMINOPHEN 325 MG TAB PO ONE (11:15)
[2018-01-29] MEDS ORDERED: PROCHLORPERAZINE INJ 10 MG/2 ML VIAL IV PUSH ONE (11:15)
[2018-01-29] MEDS ORDERED: ONDANSETRON HCL 4 MG/2 ML VIAL IV PUSH ONE (11:15)
[2018-01-29] MEDS ORDERED: SODIUM CHLOR 0.9% 1000 ML INJ 1,000 ML IV ONE (11:15)
[2018-01-29] MEDS ORDERED: ACETAMINOPHEN/HYDROcodone 325 MG/5 MG TAB PO ONE (11:30)
--- NOTE | 2018-01-29 11:37 | PD ---
HPI Chief Complaint: Chest Pain Time Seen by Provider: 11:05 Travel History International Travel<30 days: No Contact w/Intl Traveler<30days: No Traveled to known affect area: No History of Present Illness HPI 27-year-old female with history of CML, chronic chest pain presents emergency department complaining of chest pain that started 2-3 days ago. Patient states that she was coming home from [place] with her family when she started developing worsening pain location right midsternal region without radiation. 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 Says that nothing seems to improve her pain. Says she has used ibuprofen but this does not seem to be helping her. Says she has nausea with vomiting but denies diarrhea. Since she has been on chemotherapy for her leukemia for approximately 9 years. Her oncologist is Dr. Rosa. She has been evaluated for this chest pain multiple times to [facility] and here at [facility]. [facility] Past Medical History Anemia: Yes Asthma: Yes Blood Disorders: No Cancer: Yes (CML LEUKEMIA) Cardiovascular Problems: Yes Chemotherapy: Yes Chest Pain: Yes Diminished Hearing: No Endocrine: No Fibromyalgia: Yes Genitourinary: No Headaches: Yes Immune Disorder: No Musculoskeletal: Yes (generalized weakness due to leukemia) Neurologic: Yes Psychiatric: No Reproductive: No Respiratory: Yes (ASTHMA) Immunizations Current: Yes Migraines: Yes Tetanus Vaccination: > 5 Years Influenza Vaccination: Yes ?: Not LMP: 12/25/17 : 4 Para: 2 Miscarriage: 1 : 1 Ectopic : Yes (X 1) Dilation and Curettage (D&C): Yes Tubal Ligation: Yes Past Surgical History Section: Yes Gynecologic Surgery: Yes (C-SEC, TUBAL LIGATION) Other Surgery: Yes (BONE BX) Social History Alcohol Use: No Tobacco Use: No Substance Use: No Allergies-Medications (Allergen,Severity, Reaction): Coded Allergies: cat dander (Unverified Allergy, Mild, 01/29/18) WATERY EYES Reported Meds & Prescriptions Reported Meds & Active Scripts Active Reported Tasigna (Nilotinib) 150 Mg Cap 150 Mg PO Q12H Take on empty stomach Review of Systems Except as stated in HPI: all other systems reviewed are Neg Physical Exam Narrative GENERAL: WD, WN SKIN: Focused skin assessment warm/dry. HEAD: Atraumatic. Normocephalic. EYES: Pupils equal and round. No scleral icterus. No injection or drainage. ENT: No nasal bleeding or discharge. Mucous membranes pink and moist. NECK: Trachea midline. No JVD. CARDIOVASCULAR: Regular rate and rhythm. No murmur appreciated. RESPIRATORY: No accessory muscle use. Clear to auscultation. Breath sounds equal bilaterally. GASTROINTESTINAL: Abdomen soft, non-tender, nondistended. Hepatic and splenic margins not palpable. MUSCULOSKELETAL: No obvious deformities. No clubbing. No cyanosis. No edema. Tender to palpation to the chest wall localized to the right midsternal region NEUROLOGICAL: Awake and alert. No obvious cranial nerve deficits. Motor grossly within normal limits. Normal speech. PSYCHIATRIC: Appropriate mood and affect; insight and judgment normal. Data Data Last Documented VS Vital Signs Date Time Temp Pulse Resp B/P (MAP) Pulse Ox O2 Delivery O2 Flow Rate FiO2 01/29/18 15:30 74 17 110/63 (79) 98 Room Air 01/29/18 10:57 98.6 Orders Orders Prochlorperazine Inj (Compazine Inj) (01/29/18 11:15) Electrocardiogram (01/29/18 11:15) Basic Metabolic Panel (Bmp) (01/29/18 11:15) Ckmb (Isoenzyme) Profile (01/29/18 11:15) Complete Blood Count With Diff (01/29/18 11:15) Magnesium (Mg) (01/29/18 11:15) Prothrombin Time / Inr (Pt) (01/29/18 11:15) Act Partial Throm Time (Ptt) (01/29/18 11:15) Troponin I (01/29/18 11:15) Ecg Monitoring (01/29/18 11:15) Bilateral Bp Monitoring (01/29/18 11:15) Iv Access Insert/Monitor (01/29/18 11:15) Oximetry (01/29/18 11:15) Oxygen Administration (01/29/18 11:15) Ondansetron Inj (Zofran Inj) (01/29/18 11:15) Sodium Chlor 0.9% 1000 Ml Inj (Ns 1000 M (01/29/18 11:15) Acetaminophen (Tylenol) (01/29/18 11:15) Acetamin-Hydrocod 325-5 Mg ([place] 5-325 (01/29/18 11:30) Chest, Single Ap (01/29/18 ) Diazepam (Valium) (01/29/18 11:45) CKMB (01/29/18 11:30) CKMB% (01/29/18 11:30) Ketorolac Inj (Toradol Inj) (01/29/18 14:00) Admit Order (Ed Use Only) (01/29/18 15:38) Consult Medical Oncology (01/29/18 ) Labs Laboratory Tests Test 01/29/18 11:30 White Blood Count 20.8 TH/MM3 Red Blood Count 4.31 MIL/MM3 Hemoglobin 13.3 GM/DL Hematocrit 37.7 % Mean Corpuscular Volume 87.5 FL Mean Corpuscular Hemoglobin 30.8 PG Mean Corpuscular Hemoglobin Concent 35.1 % Red Cell Distribution Width 15.6 % Platelet Count 221 TH/MM3 Mean Platelet Volume 9.8 FL Neutrophils (%) (Auto) 74.1 % Lymphocytes (%) (Auto) 16.0 % Monocytes (%) (Auto) 7.9 % Eosinophils (%) (Auto) 1.0 % Basophils (%) (Auto) 1.0 % Neutrophils # (Auto) 15.4 TH/MM3 Lymphocytes # (Auto) 3.3 TH/MM3 Monocytes # (Auto) 1.7 TH/MM3 Eosinophils # (Auto) 0.2 TH/MM3 Basophils # (Auto) 0.2 TH/MM3 CBC Comment AUTO DIFF Differential Total Cells Counted 100 Neutrophils % (Manual) 65 % Band Neutrophils % 7 % Lymphocytes % 16 % Monocytes % 8 % Eosinophils % 1 % Basophils % 1 % Neutrophils # (Manual) 15.4 TH/MM3 Metamyelocytes 2 % Differential Comment FINAL DIFF MANUAL Atypical Lymphocytes % Platelet Estimate NORMAL Platelet Morphology Comment NORMAL Red Cell Morphology Comment NORMAL Prothrombin Time 10.1 SEC Prothromb Time International Ratio 1.0 RATIO Activated Partial Thromboplast Time 22.0 SEC Blood Urea Nitrogen 10 MG/DL Creatinine 0.76 MG/DL Random Glucose 87 MG/DL Calcium Level 8.9 MG/DL Magnesium Level 2.0 MG/DL Sodium Level 137 MEQ/L Potassium Level 3.9 MEQ/L Chloride Level 103 MEQ/L Carbon Dioxide Level 26.4 MEQ/L Anion Gap 8 MEQ/L Estimat Glomerular Filtration Rate 109 ML/MIN Total Creatine Kinase 107 U/L Creatine Kinase MB LESS THAN 0.5 NG/ML Troponin I LESS THAN 0.02 NG/ML MDM Medical Decision Making Medical Screen Exam Complete: Yes Emergency Medical Condition: Yes Differential Diagnosis Atypical chest pain, angina, unstable angina, STEMI, NSTEMI, peritonitis, pericardial effusion Narrative Course 27-year-old female with CML and chronic chest pain presents emergency department planing of chest pain for 2-3 days. Patient states that she was coming home from [place] when she had worsening of her chest pain located midsternal region without radiation. States the pain is sharp and aching that seems worse with working. Patient says her pain is 9-1/2 out of 10 and has been using ibuprofen without relief. 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 Patient denies cough or congestion. Denies shortness of breath. States she has felt nauseous and has been vomiting, denies diarrhea. Denies abdominal pain, leg pain. No previous history of clots in the legs or lungs. States she has been on chemotherapy for 9 years. She did not call her oncologist regarding his pain today. EKG shows sinus rhythm at 81 bpm, T-wave inversion in V1, similar to previous EKG October 17, 2017. Labs and imaging studies ordered. Reviewed [facility] for previous controlled substance Rx. After review the EMR, it appears the patient has had multiple CT pulmonary angiography studies the last year and numerous chest x-rays without acute process. D-dimer is chronically elevated she does have CML. Vital signs are stable, no tachycardia or hypoxia noted. Zofran, hydrocodone, diazepam administered. 1 L normal saline IV fluid bolus. I suspect this may be anxiety related exacerbating her chronic chest pain. Last Impressions Chest X-Ray 01/29/18 0000 Signed Impressions: Service Date/Time: January 11:36 - CONCLUSION: 1. No acute findings identified. Soren Barros MD After reassessment, it appears that patient's chest pain has not resolved. Will administer Toradol 30 mg IV. Pain has not improved. After further discussion with my attending, Dr. Villegas to be that patient need to stay for further evaluation. Patient may have pericarditis or other atypical cause of her chest pain. Does not appear patient has has had a cardiac workup or been evaluated by cardiology so we believe this is the best course of action for the patient. Patient will be admitted as an observation with recommendations to consider cardiac workup. Diagnosis Primary Impression: Atypical chest pain Referrals: Postal Worker Additional Instructions: Follow-up with primary care physician within 2-3 days. Follow-up with cardiology as discussed. Recommend a close follow-up with Dr. Rosa as he should be aware of your persistent chest pain. Condition: Stable Anita Franklin Jan 29, 2018 11:37
[2018-01-29] MEDS ORDERED: DIAZEPAM 5 MG TAB PO ONE (11:45)
--- NOTE | 2018-01-29 11:48 | PD ---
Physical Exam Narrative I, Dr. Villegas, have reviewed the advance practice practitioner's documentation and am in agreement, met with the patient face to face, made the diagnosis, and the medical decision making was done by me. *My assessment and Findings: Musculoskeletal pain vs. GERD vs. costochondritis vs. pericarditis 27yo F with leukemia on chemo (follows with Dr. Rosa) here with right sided chest pain. Pt said she always has chest pain but feels a little worst for the last 3 days. Pain is sharp and worst while working and lying down. Pain also worst with palpation. 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 Pt said Dr. Rosa thinks it's just side effects from medications. Pt has had extensive work up and frequent visits here for chest pain. Pt had 4 CT angiogram that were negative in 2017 alone and multiple more CTA in the years before. Pt is saturating at 100% on RA and HR is in the 80s right now. Do not think she has PE at this time. Labs reviewed, leukocytosis at 20,800. Bandemia at 7%. Troponin negative. CXR negative. Pt given multiple pain medication but still in a lot of pain. Dr. Rosa was called but has not heard back from him yet. Pt is immunocompromise and has leukocytosis of 20,800 that is new. Will admit for further evaluation and oncology consult. Discussed with Dr. Tan and accepted to his service. Dr. Rosa called back and agrees with plan. Said he will see her tomorrow. Data Data Last Documented VS Vital Signs Date Time Temp Pulse Resp B/P (MAP) Pulse Ox O2 Delivery O2 Flow Rate FiO2 01/29/18 15:30 74 17 110/63 (79) 98 Room Air 01/29/18 10:57 98.6 Orders Orders Prochlorperazine Inj (Compazine Inj) (01/29/18 11:15) Electrocardiogram (01/29/18 11:15) Basic Metabolic Panel (Bmp) (01/29/18 11:15) Ckmb (Isoenzyme) Profile (01/29/18 11:15) Complete Blood Count With Diff (01/29/18 11:15) Magnesium (Mg) (01/29/18 11:15) Prothrombin Time / Inr (Pt) (01/29/18 11:15) Act Partial Throm Time (Ptt) (01/29/18 11:15) Troponin I (01/29/18 11:15) Ecg Monitoring (01/29/18 11:15) Bilateral Bp Monitoring (01/29/18 11:15) Iv Access Insert/Monitor (01/29/18 11:15) Oximetry (01/29/18 11:15) Oxygen Administration (01/29/18 11:15) Ondansetron Inj (Zofran Inj) (01/29/18 11:15) Sodium Chlor 0.9% 1000 Ml Inj (Ns 1000 M (01/29/18 11:15) Acetaminophen (Tylenol) (01/29/18 11:15) Acetamin-Hydrocod 325-5 Mg (Poca 5-325 (01/29/18 11:30) Chest, Single Ap (01/29/18 ) Diazepam (Valium) (01/29/18 11:45) CKMB (01/29/18 11:30) CKMB% (01/29/18 11:30) Ketorolac Inj (Toradol Inj) (01/29/18 14:00) Admit Order (Ed Use Only) (01/29/18 15:38) Consult Medical Oncology (01/29/18 ) Labs Laboratory Tests Test 01/29/18 11:30 White Blood Count 20.8 TH/MM3 Red Blood Count 4.31 MIL/MM3 Hemoglobin 13.3 GM/DL Hematocrit 37.7 % Mean Corpuscular Volume 87.5 FL Mean Corpuscular Hemoglobin 30.8 PG Mean Corpuscular Hemoglobin Concent 35.1 % Red Cell Distribution Width 15.6 % Platelet Count 221 TH/MM3 Mean Platelet Volume 9.8 FL Neutrophils (%) (Auto) 74.1 % Lymphocytes (%) (Auto) 16.0 % Monocytes (%) (Auto) 7.9 % Eosinophils (%) (Auto) 1.0 % Basophils (%) (Auto) 1.0 % Neutrophils # (Auto) 15.4 TH/MM3 Lymphocytes # (Auto) 3.3 TH/MM3 Monocytes # (Auto) 1.7 TH/MM3 Eosinophils # (Auto) 0.2 TH/MM3 Basophils # (Auto) 0.2 TH/MM3 CBC Comment AUTO DIFF Differential Total Cells Counted 100 Neutrophils % (Manual) 65 % Band Neutrophils % 7 % Lymphocytes % 16 % Monocytes % 8 % Eosinophils % 1 % Basophils % 1 % Neutrophils # (Manual) 15.4 TH/MM3 Metamyelocytes 2 % Differential Comment FINAL DIFF MANUAL Atypical Lymphocytes % Platelet Estimate NORMAL Platelet Morphology Comment NORMAL Red Cell Morphology Comment NORMAL Prothrombin Time 10.1 SEC Prothromb Time International Ratio 1.0 RATIO Activated Partial Thromboplast Time 22.0 SEC Blood Urea Nitrogen 10 MG/DL Creatinine 0.76 MG/DL Random Glucose 87 MG/DL Calcium Level 8.9 MG/DL Magnesium Level 2.0 MG/DL Sodium Level 137 MEQ/L Potassium Level 3.9 MEQ/L Chloride Level 103 MEQ/L Carbon Dioxide Level 26.4 MEQ/L Anion Gap 8 MEQ/L Estimat Glomerular Filtration Rate 109 ML/MIN Total Creatine Kinase 107 U/L Creatine Kinase MB LESS THAN 0.5 NG/ML Troponin I LESS THAN 0.02 NG/ML MDM Supervised Visit with [facility]: Yes Interpretation(s) EKG: NSR 81bpm. Normal axis. No significant ST elevation. Mild IA depression II, unchange from prior. Diagnosis Primary Impression: OTHER CHEST PAIN Admitting Information Admitting Physician Requests: Observation Condition: Stable VillegasJessy kylekamila TRAYLOR Jan 29, 2018 11:48
[2018-01-29 11:58] LABS: AUTOMATED NEUTROPHIL # 15.4 TH/MM3 (1.8-7.7); BASOPHIL # 0.2 TH/MM3 (0-0.2); EOSINOPHIL # 0.2 TH/MM3 (0-0.4); HEMATOCRIT 37.7 % (35.0-46.0); HEMOGLOBIN 13.3 GM/DL (11.6-15.3); LYMPHOCYTE # 3.3 TH/MM3 (1.0-4.8); MEAN CELL VOLUME 87.5 FL (80.0-100.0); MEAN CORPUSCULAR HEMOGLOBIN 30.8 PG (27.0-34.0); MEAN CORPUSCULAR HGB CONC 35.1 % (32.0-36.0); MEAN PLATELET VOLUME 9.8 FL (7.0-11.0); MONO % 7.9 % (0.0-8.0); MONOCYTE # 1.7 TH/MM3 (0-0.9); NEUT % 74.1 % (16.0-70.0); PLATELET COUNT 221 TH/MM3 (150-450); RED BLOOD COUNT 4.31 MIL/MM3 (4.00-5.30); RED CELL DISTRIBUTION WIDTH 15.6 % (11.6-17.2); WHITE BLOOD COUNT 20.8 TH/MM3 (4.0-11.0)
--- NOTE | 2018-01-29 12:01 | RADRPT ---
EXAM DATE/TIME: 01/29/2018 11:36 [facility] COMPARISON: CHEST SINGLE AP, December 08, 2017, 11:25. INDICATIONS : Chest pain MEDICAL HISTORY : Leukemia. SURGICAL HISTORY : Tubal ligation. ENCOUNTER: Initial ACUITY: 4 - 6 days PAIN SCORE: 2/10 LOCATION: chest FINDINGS: The heart is at the upper limits of normal in size. The lungs are clear. The visualized osseous struc tures are grossly intact. The exam is similar to the previous study of 12/08/17. CONCLUSION: 1. No acute findings identified. Soren Barros MD on January 29, 2018 at 11:57 Board Certified Radiologist. This report was verified electronically.
[2018-01-29 12:02] LABS: PROTHROMBIN TIME - PATIENT 10.1 SEC (9.8-11.6)
[2018-01-29 12:04] LABS: BICARBONATE 26.4 MEQ/L (21.0-32.0); BLOOD UREA NITROGEN 10 MG/DL (7-18); CALCIUM 8.9 MG/DL (8.5-10.1); CHLORIDE 103 MEQ/L (98-107); CREATININE 0.76 MG/DL (0.50-1.00); GLOMERULAR FILTRATION RATE 109 ML/MIN (>89); GLUCOSE,RANDOM 87 MG/DL (74-106); SODIUM (NA) 137 MEQ/L (136-145)
[2018-01-29 12:07] LABS: TROPONIN I LESS THAN 0.02 NG/ML (0.02-0.05)
[2018-01-29 12:31] LABS: BANDS 7 % (0-6); BASOPHILS 1 % (0-2); LYMPHOCYTES 16 % (9-44); METAMYELOCYTES 2 % (0-1); MONOCYTES 8 % (0-8); NEUTROPHIL # MANUAL DIFF 15.4 TH/MM3 (1.8-7.7); POLYS (SEG NEUTROPHILS) 65 % (16-70)
[2018-01-29] MEDS ORDERED: KETOROLAC TROMETHAMINE 30 MG/ML (IVP) VIAL IV PUSH ONE (14:00)
[2018-01-29] MEDS ORDERED: ACETAMINOPHEN 325 MG TAB PO PRN ×2 (16:00)
[2018-01-29] MEDS ORDERED: ONDANSETRON HCL 4 MG/2 ML VIAL IVP PRN (16:00)
[2018-01-29] MEDS ORDERED: SODIUM CHLORIDE 0.9% FLUSH 10 ML FLUSH IV FLUSH PRN (16:00)
[2018-01-29] MEDS ORDERED: MAGNESIUM HYDROXIDE SUSP 30 ML CUP PO PRN (16:00)
[2018-01-29] MEDS ORDERED: NALOXONE HCL 0.4 MG/ML AMP IV PUSH PRN (16:00)
--- NOTE | 2018-01-29 16:07 | HHI.HP ---
HPI Service [facility] Primary Care Physician [place] Melissa MD Admission Diagnosis Chest pain with leukocytosis Diagnoses: (1) Atypical chest pain (2) CML (chronic myelocytic leukemia) (3) Bandemia (4) Nausea & vomiting Chief Complaint: Chest pain Travel History International Travel<30 Days: No Contact w/Intl Traveler <30 Da: No Traveled to Known Affected Are: No History of Present Illness 27-year-old female with a history of CML in to the ED for evaluation of 34 day history of atypical substernal chest pain with radiation to her back as well as numbness and tingling of fingers. Patient reports worsening symptoms of chest pain with deep inspiration and palpation. She denies any trauma. Initial cardiac enzymes unremarkable. Normal labs include W BC of 20,000 however patient denies any febrile episode, cough, dysuria. She's had multiple workups for chest pain all resulted with negative PE in the past. She appears very anxious during my exam. Patient also reported 2 episodes of nausea and vomiting. Review of Systems Except as stated in HPI: all other systems reviewed are Neg Past Family Social History Past Medical History CML Asthma Past Surgical History c section tubal ligation Reported Medications Tasigna (Nilotinib) 150 Mg Cap 150 Mg PO Q12H Take on empty stomach Allergies: Coded Allergies: cat dander (Unverified Allergy, Mild, 01/29/18) WATERY EYES Family History Mother from breast cancer Social History Alcohol Use: No Tobacco Use: No Substance Use: No Physical Exam Vital Signs Vital Signs Date Time Temp Pulse Resp B/P (MAP) Pulse Ox O2 Delivery O2 Flow Rate FiO2 01/29/18 15:30 74 17 110/63 (79) 98 Room Air 01/29/18 13:25 72 16 106/59 (75) 100 Room Air 01/29/18 11:25 86 18 143/79 (100) 99 Room Air 121/77 (92) 01/29/18 11:24 18 98 Room Air 01/29/18 11:24 98 Room Air 01/29/18 10:57 98.6 89 17 146/79 (101) 98 Physical Exam GENERAL: This is a well-nourished, well-developed patient, in no apparent distress. SKIN: No rashes, ecchymoses or lesions. Cool and dry. HEAD: Atraumatic. Normocephalic. No temporal or scalp tenderness. EYES: Pupils equal round and reactive. Extraocular motions intact. No scleral icterus. No injection or drainage. ENT: Nose without bleeding, purulent drainage or septal hematoma. Throat without erythema, tonsillar hypertrophy or exudate. Uvula midline. Airway patent. NECK: Trachea midline. No JVD or lymphadenopathy. Supple, nontender, no meningeal signs. CARDIOVASCULAR: Regular rate and rhythm without murmurs, gallops, or rubs. RESPIRATORY: Clear to auscultation. Breath sounds equal bilaterally. No wheezes , rales, or rhonchi. TTP on deep palpation GASTROINTESTINAL: Abdomen soft, non-tender, nondistended. No hepato-splenomegaly , or palpable masses. No guarding. MUSCULOSKELETAL: Extremities without clubbing, cyanosis, or edema. No joint tenderness, effusion, or edema noted. No calf tenderness. Negative Homans sign bilaterally. NEUROLOGICAL: Awake and alert. Cranial nerves II through XII intact. Motor and sensory grossly within normal limits. Five out of 5 muscle strength in all muscle groups. Normal speech. Laboratory Last Impressions Chest X-Ray 01/29/18 0000 Signed Impressions: Service Date/Time: January 11:36 - CONCLUSION: 1. No acute findings identified. Soren Barros MD Laboratory Tests Test 01/29/18 11:30 White Blood Count 20.8 Red Blood Count 4.31 Hemoglobin 13.3 Hematocrit 37.7 Mean Corpuscular Volume 87.5 Mean Corpuscular Hemoglobin 30.8 Mean Corpuscular Hemoglobin Concent 35.1 Red Cell Distribution Width 15.6 Platelet Count 221 Mean Platelet Volume 9.8 Neutrophils (%) (Auto) 74.1 Lymphocytes (%) (Auto) 16.0 Monocytes (%) (Auto) 7.9 Eosinophils (%) (Auto) 1.0 Basophils (%) (Auto) 1.0 Neutrophils # (Auto) 15.4 Lymphocytes # (Auto) 3.3 Monocytes # (Auto) 1.7 Eosinophils # (Auto) 0.2 Basophils # (Auto) 0.2 CBC Comment AUTO DIFF Differential Total Cells Counted 100 Neutrophils % (Manual) 65 Band Neutrophils % 7 Lymphocytes % 16 Monocytes % 8 Eosinophils % 1 Basophils % 1 Neutrophils # (Manual) 15.4 Metamyelocytes 2 Differential Comment FINAL DIFF MANUAL Atypical Lymphocytes Platelet Estimate NORMAL Platelet Morphology Comment NORMAL Red Cell Morphology Comment NORMAL Prothrombin Time 10.1 Prothromb Time International Ratio 1.0 Activated Partial Thromboplast Time 22.0 Blood Urea Nitrogen 10 Creatinine 0.76 Random Glucose 87 Calcium Level 8.9 Magnesium Level 2.0 Sodium Level 137 Potassium Level 3.9 Chloride Level 103 Carbon Dioxide Level 26.4 Anion Gap 8 Estimat Glomerular Filtration Rate 109 Total Creatine Kinase 107 Creatine Kinase MB LESS THAN 0.5 Troponin I LESS THAN 0.02 Result Diagram: 01/29/18 1130 01/29/18 1130 Imaging Last Impressions Chest X-Ray 01/29/18 0000 Signed Impressions: Service Date/Time: January 11:36 - CONCLUSION: 1. No acute findings identified. Soren Barros MD Septic Shock Reassessment Septic shock perfusion: reassessment completed Caprini VTE Risk Assessment Caprini VTE Risk Assessment: No/Low Risk (score <= 1) Caprini Risk Assessment Model Point Value = 1 Point Value = 2 Point Value = 3 Point Value = 5 Age 41-60 Minor surgery BMI > 25 kg/m2 Swollen legs Varicose veins or History of unexplained or recurrent spontaneous Oral contraceptives or hormone replacement Sepsis (< 1 month) Serious lung disease, including pneumonia (< 1 month) Abnormal pulmonary function Acute myocardial infarction Congestive heart failure (< 1 month) History of inflammatory bowel disease Medical patient at bed rest Age 61-74 Arthroscopic surgery Major open surgery (> 45 min) Laparoscopic surgery (> 45 min) Malignancy Confined to bed (> 72 hours) Immobilizing plaster cast Central venous access Age >= 75 History of VTE Family history of VTE Factor V Leiden Prothrombin [id number] Lupus anticoagulant Anticardiolipin antibodies Elevated serum homocysteine Heparin-induced thrombocytopenia Other congenital or acquired thrombophilia Stroke (< 1 month) Elective arthroplasty Hip, pelvis, or leg fracture Acute spinal cord injury (< 1 month) Prophylaxis Regimen Total Risk Factor Score Risk Level Prophylaxis Regimen 0-1 Low Early ambulation 2 Moderate Order ONE of the following: *Sequential Compression Device (SCD) *Heparin 5000 units SQ BID 3-4 Higher Order ONE of the following medications: *Heparin 5000 units SQ TID *Enoxaparin/Lovenox 40 mg SQ daily (WT < 150 kg, CrCl > 30 mL/min) *Enoxaparin/Lovenox 30 mg SQ daily (WT < 150 kg, CrCl > 10-29 mL/min) *Enoxaparin/Lovenox 30 mg SQ BID (WT < 150 kg, CrCl > 30 mL/min) AND/OR *Sequential Compression Device (SCD) 5 or more Highest Order ONE of the following medications: *Heparin 5000 units SQ TID (Preferred with Epidurals) *Enoxaparin/Lovenox 40 mg SQ daily (WT < 150 kg, CrCl > 30 mL/min) *Enoxaparin/Lovenox 30 mg SQ daily (WT < 150 kg, CrCl > 10-29 mL/min) *Enoxaparin/Lovenox 30 mg SQ BID (WT < 150 kg, CrCl > 30 mL/min) AND *Sequential Compression Device (SCD) Assessment and Plan Problem List: (1) Atypical chest pain ICD Code: R07.89 - Other chest pain Status: Acute (2) CML (chronic myelocytic leukemia) ICD Code: C92.10 - Chronic myeloid leukemia Status: Acute (3) Bandemia ICD Code: D72.825 - Increased band cell count Status: Acute (4) Nausea & vomiting ICD Code: R11.2 - Nausea and vomiting Status: Acute Assessment and Plan 27 year-old female with Atypical chest pain Chest x-ray noted and review by me without any cardio pulmonary disease This appear to be costochondritis Initial cardiac enzyme unremarkable However will check 2-D echo to rule out pericarditis despite no no diffuse ST elevation on EKG Bandemia unclear of what can be the source CXR without any pulmonary infiltrate Check UA Start empiric cefepime and monitor culture report History of CML Resume Tasigna (Nilotinib) 150 Mg Cap 150 Mg PO Q12H DVT prophylaxis: Bilateral SCDs Code Status Full code Discussed Condition With Patient, , ED physician Frederick Tan MD Jan 29, 2018 16:07
[2018-01-29] MEDS: ACETAMINOPHEN/HYDROcodone 325 MG/5 MG TAB PO PRN (17:39)
[2018-01-29] MEDS: IBUPROFEN 400 MG TAB PO SCH ×2 (18:12→23:18)
[2018-01-29] MEDS: CEFEPIME INJ 2,000 MG in SODIUM CHLORIDE 0.9% INJ 100 ML IV SCH (18:12)
[2018-01-29] MEDS ORDERED: NILOTINIB 150 MG PO SCH (21:00)
[2018-01-29] MEDS: LACTOBACILLUS ACIDOPHILUS TAB PO SCH (23:18)
[2018-01-29] MEDS: SODIUM CHLORIDE 0.9% FLUSH 10 ML FLUSH IV FLUSH SCH (23:18)
[2018-01-30] VITALS (8 sets, daily range): BP systolic 108–120; BP diastolic 63–80; PULSE 80–100; RESP 16–20; TEMP 97.8–98.2; O2SAT 96–99
[2018-01-30] MEDS: CEFEPIME INJ 2,000 MG in SODIUM CHLORIDE 0.9% INJ 100 ML IV SCH ×3 (02:27→16:53)
[2018-01-30] MEDS: ACETAMINOPHEN/HYDROcodone 325 MG/5 MG TAB PO PRN ×3 (02:28→19:58)
[2018-01-30 03:20] LABS: BACTERIA, URINE RARE /hpf; BILIRUBIN, URINE NEG (NEG); BLOOD, URINE SMALL (NEG); GLUCOSE,URINE NEG (NEG); KETONE, URINE NEG (NEG); MUCUS URINE FEW /lpf (OCC); NITRITE,URINE NEG (NEG); PH, URINE 6.5 (5.0-8.5); SQUAMOUS EPITHELIAL CELL URINE 2 /hpf (0-5); URINE COLOR YELLOW (YELLW/STRAW); URINE LEUKOCYTE ESTERASE TRACE (NEG)
[2018-01-30] MEDS: IBUPROFEN 400 MG TAB PO SCH ×3 (05:52→16:53)
[2018-01-30 07:44] LABS: AUTOMATED NEUTROPHIL # 7.6 TH/MM3 (1.8-7.7); BASOPHIL # 0.1 TH/MM3 (0-0.2); BASOPHIL % 1.1 % (0.0-2.0); EOSINOPHIL # 0.2 TH/MM3 (0-0.4); EOSINOPHIL % 1.6 % (0.0-4.0); HEMATOCRIT 34.8 % (35.0-46.0); HEMOGLOBIN 11.9 GM/DL (11.6-15.3); LYMPH % 18.3 % (9.0-44.0); MEAN CELL VOLUME 89.4 FL (80.0-100.0); MEAN CORPUSCULAR HEMOGLOBIN 30.6 PG (27.0-34.0); MEAN CORPUSCULAR HGB CONC 34.2 % (32.0-36.0); MEAN PLATELET VOLUME 9.1 FL (7.0-11.0); MONO % 10.5 % (0.0-8.0); MONOCYTE # 1.2 TH/MM3 (0-0.9); NEUT % 68.5 % (16.0-70.0); PLATELET COUNT 194 TH/MM3 (150-450); RED BLOOD COUNT 3.89 MIL/MM3 (4.00-5.30); RED CELL DISTRIBUTION WIDTH 15.8 % (11.6-17.2)
[2018-01-30 08:03] LABS: ALBUMIN 3.2 GM/DL (3.4-5.0); AST (GOT) 12 U/L (15-37); BICARBONATE 23.6 MEQ/L (21.0-32.0); BLOOD UREA NITROGEN 11 MG/DL (7-18); CHLORIDE 108 MEQ/L (98-107); CREATININE 0.75 MG/DL (0.50-1.00); GLOMERULAR FILTRATION RATE 111 ML/MIN (>89); GLUCOSE,RANDOM 99 MG/DL (74-106); SODIUM (NA) 139 MEQ/L (136-145)
[2018-01-30 08:04] LABS: ALT (GPT) 21 U/L (10-53)
[2018-01-30 08:06] LABS: ALKALINE PHOSPHATASE 71 U/L (45-117); TOTAL BILIRUBIN ADULT 0.3 MG/DL (0.2-1.0); TOTAL PROTEIN 7.3 GM/DL (6.4-8.2)
[2018-01-30] MEDS ORDERED: TASIGNA 150 MG PO SCH (09:00)
--- NOTE | 2018-01-30 09:20 | MB ---
cc: Nilson Rosa MD DATE OF CONSULT: ATTENDING PHYSICIAN: Dr. Tan. REASON FOR CONSULTATION: Hematology consulted patient with chronic myelogenous leukemia. HISTORY OF PRESENT ILLNESS: Patient is a 27-year-old female with history of chronic myelogenous leukemia diagnosed in 2009, presented to the hospital with complaint of recurrent chest pain. She had been to the emergency room multiple times for the chest pain. She had multiple CT angiograms in the past, which did not show any pulmonary embolism. She states that pain is substernal area and radiates to her arm and she has some numbness of her left hand occasionally. She has pain with deep inspiration and she occasionally has palpitations. She also describes as if somebody is standing on her chest. She has shortness of breath with her chest pain. She has occasional sweats. Stated that her mother had coronary disease and of congestive heart failure at age 52. The patient also noted to have leukocytosis with bandemia, and she was admitted for further evaluation. She denies any fever or chills. She had an episode of nausea. She has occasional hot flashes. Denies any urinary frequency or dysuria. Denies headache. Denies visual changes. PAST MEDICAL HISTORY: 1. Chronic myelogenous leukemia. 2. Asthma. 3. Chronic arthralgia or myalgia. 4. Arthritis. PAST SURGICAL HISTORY: , tubal ligation, bone marrow biopsy. FAMILY HISTORY: Mother had coronary disease and of congestive heart failure. Mother also had breast cancer and cervical cancer. She has 2 brothers, both healthy. SOCIAL HISTORY: No tobacco or alcohol use. ALLERGIES: CAT DANDER AND EGGS. CURRENT MEDICATIONS: Tasigna, Lactinex, ibuprofen, cefepime. REVIEW OF SYSTEMS: CONSTITUTIONAL: As above. EYE: Negative. ENT: Negative. CARDIOVASCULAR: As above. RESPIRATORY: As above. GASTROINTESTINAL: As above. GENITOURINARY: No dysuria or hematuria. MUSCULOSKELETAL: As above. HEMATOLOGIC: As above. ENDOCRINE: Negative. : Negative. PSYCHIATRIC: Negative. NEUROLOGIC: Negative. PHYSICAL EXAMINATION: VITALS: Temperature 98.2, blood pressure 114/78, O2 saturation 96% on room air. GENERAL: She is alert, oriented x 3, no acute distress. HEENT: Atraumatic, normocephalic. Pupils are equal, round, reactive to light. Extraocular muscles are intact. No scleral icterus. Oropharynx dry. Mucosa, no lesion, no thrush. NECK: No thyromegaly. No palpable mass. LYMPHATIC: No palpable cervical, clavicular, axillary, or groin. CARDIOVASCULAR: Regular S1, S2. No murmur. LUNGS: Clear to auscultation bilaterally. No wheeze or rhonchi. ABDOMEN: Soft, nontender. Cannot palpate liver, spleen. EXTREMITIES: No cyanosis, clubbing, edema. No calf tenderness. BACK: No palpable tenderness. SKIN: There is a nodule in the right anterior chest wall next to the sternal area, is soft. NEUROLOGIC: Nonfocal. LABORATORY DATA: WBC 11, hemoglobin 11.9, platelet count 194. ASSESSMENT: 1. Chronic myelogenous leukemia. She was first diagnosed in 2009 in chronic phase. She was noncompliant with Gleevec and developed progressive disease in 2012. She was switched to Sprycel with good response but developed rhabdomyolysis in December 2013. She was reluctant to try further treatment but developed progression of disease and started Tasigna in April 2015. Her creatine kinase started trending up again and Tasigna was reduced to 3 pills a day. She has been very noncompliant with her clinic followup. Last time I saw her in clinic was around August 2017. She, however, did not go get her labs done, and her last quantitative PCR for BCR/ABL test was 10/2016. At that time, fusion protein noted to have increased. I think she is noncompliant with taking the Tasigna. She came in with a white blood cell count of 20,000, but there is bandemia noted, which likely a reactive process. This morning, WBC trended back down to 11,000. The patient will continue Tasigna. I told her to follow up with hematology clinic, and she will need a repeat PCR test to look measure her fusion protein. 2. Chest pain. She has recurrent substernal chest pain. She had multiple CT angiograms, which did not show any pulmonary embolism. She said she has associated numbness of her left fingers and shortness of breath. She states that her mother had coronary artery disease and of congestive heart failure at age 52. She has never been evaluated by a vibration analyst. We will consult cardiology for further evaluation. 3. Arthritis. She has chronic arthralgia and myalgia. 4. Asthma. RECOMMENDATIONS: 1. Restart Tasigna. 2. Consult cardiology. 3. Continue antibiotics per primary team. 4. Patient can be discharged from a hematology standpoint. Told patient to follow up with hematology clinic. Thank you, Dr. Tan, for asking me to see this patient. MD SOCO James/ASA , 08:39 AM , 09:18 AM SAMANTHA
[2018-01-30] MEDS: LACTOBACILLUS ACIDOPHILUS TAB PO SCH ×2 (10:04→19:57)
[2018-01-30] MEDS: SODIUM CHLORIDE 0.9% FLUSH 10 ML FLUSH IV FLUSH SCH ×2 (10:04→20:00)
--- NOTE | 2018-01-30 11:20 | EKG ---
Date Performed: 01/29/2018 Time Performed: 11:19:00 PTAGE: 27 years EKG: Sinus rhythm WITH SINUS ARRHYTHMIA NORMAL ECG PREVIOUS TRACING : 11/05/2017 23.29 Since the previous tracing, no significant change noted DOCTOR: Tiburcio Shin Interpretating Date/Time 01/30/2018 11:17:59
--- NOTE | 2018-01-30 12:48 | MB ---
cc: Ruben Parada MD DATE OF CONSULT: 01/30/2018 REASON FOR CONSULTATION: Chest pain. HISTORY OF PRESENT ILLNESS: The patient is a 27-year-old female with a history of chronic myelogenous leukemia diagnosed 2009, history of asthma, who presented to the hospital with complaints of chest pain. The patient states for the past 9 years, she has had occasional substernal chest discomfort described as "ache" and "sharp" associated with shortness of breath. The chest discomforts now have been occurring daily, sometimes lasting throughout the day in a constant fashion. At times, the chest discomfort radiates to her lower back. She has had a number of CT angiograms of the chest showing no evidence of pulmonary embolism. She denies pleurisy, pedal edema, paroxysmal nocturnal dyspnea, orthopnea, palpitations. About 2 weeks ago, while at work at [employer], while walking, she developed lightheadedness in conjunction with the chest discomfort and subsequently lost consciousness for unknown duration. When she regained consciousness, there was no disorientation. She had a similar episode about 4 weeks ago again, while at work, preceded by lightheadedness, unknown duration. PAST MEDICAL HISTORY: 1. Chronic myelogenous leukemia. 2. Asthma. CARDIAC MEDICATIONS AT HOME: None. ALLERGIES: NO KNOWN DRUG ALLERGIES. FAMILY HISTORY: There is no definite significant family history of early myocardial infarction. Her mother from congestive heart failure at age 53. SOCIAL HISTORY: The patient denies any history of alcohol, drug or tobacco abuse. REVIEW OF SYSTEMS: As in the history of present illness, otherwise negative or noncontributory. She also denies headache, abdominal pain, melena, dyspepsia, bright red blood per rectum. PHYSICAL EXAM: VITAL SIGNS: Her blood pressure 114/78 with a pulse of 80, respirations 20. GENERAL: She is a well-developed, well-nourished female in no acute distress. NECK: Jugular venous pressure is normal. Carotid pulses are 2+ bilaterally and without bruits. CHEST: Examination reveals clear lung traore. CARDIAC: She has a regular rhythm and rate without S3, S4 or murmur. ABDOMEN: She has a soft, nontender abdomen. Bowel sounds are present. There is no definite hepatosplenomegaly. EXTREMITIES: Reveals no clubbing, cyanosis or edema. LABORATORY DATA: Includes WBC 11.0, hemoglobin 11.9, platelets 194. Potassium 4.2, BUN 11, creatinine 0.75. CK 107. Troponin less than 0.02. EKG from 01/29/2018 at 11:19 a.m. shows sinus rhythm with nonspecific ST abnormality. Chest x-ray shows no acute disease. IMPRESSION: Overall atypical, chronic chest pains. In this 27-year-old female with a history of chronic myelogenous leukemia, asthma. Despite prolonged episodes of chest discomfort, cardiac enzymes are negative for myocardial infarction. EKG shows overall nonspecific changes. She apparently has no major risk factors for coronary artery disease except possibly family history. The patient also has some chest wall tenderness on exam. Also of note, the patient relates 2 episodes of syncope within the last several weeks of unclear etiology, possibly vasovagal mediated. So far on monitoring, she has had no arrhythmias. She denies any history of syncope or chest pains as a child. RECOMMENDATIONS: 1. Check a Lexiscan nuclear stress test to rule out myocardial ischemia. 2. Check a 2-D echo to assess her left ventricular function. 3. Will followup as needed for any abnormal cardiac testing. MD JONATHAN Palomo/JOSH , 12:23 PM , 12:47 PM MTDD
--- NOTE | 2018-01-30 15:31 | HHI.PR ---
Subjective Remarks The patient is in bed. Still with some chest pain , patient says she had chjet pain when she found out she has CML it feels the same. With some nausea did not vomit. No fever or chills. No d/c. Denies chest pain or sob. No urinary complaints. Objective Vitals Vital Signs Date Time Temp Pulse Resp B/P (MAP) Pulse Ox O2 Delivery O2 Flow Rate FiO2 01/30/18 12:33 98.2 90 18 118/74 (89) 96 01/30/18 08:17 80 01/30/18 08:08 98.2 90 20 114/78 (90) 96 01/30/18 01:30 100 01/30/18 01:29 98.0 94 16 108/63 (78) 98 01/29/18 20:00 98.0 92 16 117/70 (86) 98 01/29/18 18:20 96 01/29/18 16:57 98.3 86 20 121/71 (88) 99 01/29/18 16:52 71 16 107/68 (81) 98 01/29/18 15:30 74 17 110/63 (79) 98 Room Air I/O 01/29/18 01/29/18 01/29/18 01/30/18 01/30/18 01/30/18 07:00 15:00 23:00 07:00 15:00 23:00 Intake Total 1000 ml Balance 1000 ml Intake IV Total 1000 ml # Voids 2 2 Result Diagram: 01/30/18 0645 01/30/18 0645 Imaging Last Impressions Chest X-Ray 01/29/18 0000 Signed Impressions: Service Date/Time: January 11:36 - CONCLUSION: 1. No acute findings identified. Soren Barros MD Objective Remarks GENERAL: This is a well-nourished, well-developed patient, in no apparent distress. SKIN: No rashes, ecchymoses or lesions. Cool and dry. HEAD: Atraumatic. Normocephalic. No temporal or scalp tenderness. EYES: Pupils equal round and reactive. Extraocular motions intact. No scleral icterus. No injection or drainage. ENT: Nose without bleeding, purulent drainage or septal hematoma. Throat without erythema, tonsillar hypertrophy or exudate. Uvula midline. Airway patent. NECK: Trachea midline. No JVD or lymphadenopathy. Supple, nontender, no meningeal signs. CARDIOVASCULAR: Regular rate and rhythm without murmurs, gallops, or rubs. RESPIRATORY: Clear to auscultation. Breath sounds equal bilaterally. No wheezes , rales, or rhonchi. TTP on deep palpation GASTROINTESTINAL: Abdomen soft, non-tender, nondistended. No hepato-splenomegaly , or palpable masses. No guarding. MUSCULOSKELETAL: Extremities without clubbing, cyanosis, or edema. No joint tenderness, effusion, or edema noted. No calf tenderness. Negative Homans sign bilaterally. NEUROLOGICAL: Awake and alert. Cranial nerves II through XII intact. Motor and sensory grossly within normal limits. Five out of 5 muscle strength in all muscle groups. Normal speech. A/P Problem List: (1) Atypical chest pain ICD Code: R07.89 - Other chest pain Status: Acute (2) CML (chronic myelocytic leukemia) ICD Code: C92.10 - Chronic myeloid leukemia Status: Acute (3) Bandemia ICD Code: D72.825 - Increased band cell count Status: Acute (4) Nausea & vomiting ICD Code: R11.2 - Nausea and vomiting Status: Acute Assessment and Plan 01/30/18 27 year-old female with Atypical chest pain Chest x-ray noted and review by me without any cardio pulmonary disease This appear to be costochondritis Initial cardiac enzyme unremarkable However will check 2-D echo to rule out pericarditis despite no no diffuse ST elevation on EKG Bandemia unclear of what can be the source CXR without any pulmonary infiltrate UA suggestive of UTI, urine cx pending Start empiric cefepime and monitor culture report History of CML Resume Tasigna (Nilotinib) 150 Mg Cap 150 Mg PO Q12H DVT prophylaxis: Bilateral SCDs Code Status Full code Discussed Condition With Patient, nurse Janie Alfonso MD Jan 30, 2018 15:30
--- NOTE | 2018-01-30 17:35 | ECHRPT ---
Indication: SOB CONCLUSIONS Normal left ventricular size. Wall thickness is normal. The left ventricular systolic function is normal with an estimated ejection fraction in the range of 55-60%. Normal wall motion. Trace mitral valve regurgitation. BP: 108 / 63 HR: Rhythm: MEASUREMENTS (Male / Female) Normal Values Technical Quality: 2D ECHO LV Diastolic Diameter PLAX 4.5 cm 4.2 - 5.9 / 3.9 - 5.3 cm LV Systolic Diameter PLAX 3.2 cm IVS Diastolic Thickness 1.0 cm 0.6 - 1.0 / 0.6 - 0.9 cm LVPW Diastolic Thickness 0.8 cm 0.6 - 1.0 / 0.6 - 0.9 cm LV Relative Wall Thickness 0.4 RV Internal Dim ED PLAX 3.0 cm LVOT Diameter 1.7 cm LA Systolic Diameter LX 3.8 cm 3.0 - 4.0 / 2.7 - 3.8 cm M-MODE Aortic Root Diameter MM 2.2 cm LA Systolic Diameter MM 3.3 cm LA Ao Ratio MM 1.5 AV Cusp Separation MM 1.5 cm DOPPLER AV Peak Velocity 156.0 cm/s AV Peak Gradient 9.7 mmHg LVOT Peak Velocity 128.0 cm/s LVOT Peak Gradient 6.6 mmHg AV Area Cont Eq pk 1.9 cm MV Area PHT 3.2 cm Mitral E Point Velocity 93.3 cm/s Mitral A Point Velocity 67.1 cm/s Mitral E to A Ratio 1.4 LV E' Lateral Velocity 11.7 cm/s Mitral E to LV E' Lateral Ratio 8.0 LV E' Septal Velocity 8.1 cm/s Mitral E to LV E' Septal Ratio 11.5 FINDINGS LEFT VENTRICLE Normal left ventricular size. Wall thickness is normal. The left ventricular systolic function is normal with an estimated ejection fraction in the range of 55-60%. Normal wall motion. RIGHT VENTRICLE Normal right ventricular size and systolic function. LEFT ATRIUM The left atrial size is normal. RIGHT ATRIUM The right atrial size is normal. ATRIAL SEPTUM Normal atrial septal thickness without atrial level shunting by limited color doppler interrogation. AORTA The aortic root and proximal ascending aorta are normal in size on limited imaging. MITRAL VALVE Trace mitral valve regurgitation. AORTIC VALVE Trileaflet aortic valve. No aortic valve stenosis or regurgitation. TRICUSPID VALVE Structurally normal tricuspid valve. No tricuspid valve stenosis or regurgitation. PULMONARY VALVE Mild pulmonary valve regurgitation. VESSELS The inferior vena cava is normal in size. PERICARDIUM No pericardial effusion. Ruben Parada MD (Electronically Signed) Final Date:30 January 2018 17:34
[2018-01-31] VITALS: PULSE 84
[2018-01-31] MEDS: IBUPROFEN 400 MG TAB PO SCH ×3 (01:50→12:40)
[2018-01-31] MEDS: CEFEPIME INJ 2,000 MG in SODIUM CHLORIDE 0.9% INJ 100 ML IV SCH ×2 (01:51→12:41)
[2018-01-31 04:00] VITALS: PULSE 84
[2018-01-31 05:13] VITALS: BP 115/59; PULSE 80; RESP 14; TEMP 98.1; O2SAT 98
[2018-01-31 07:06] VITALS: PULSE 95
[2018-01-31 08:15] VITALS: BP 116/76; PULSE 87; RESP 16; TEMP 98.6; O2SAT 100
[2018-01-31] MEDS: ACETAMINOPHEN/HYDROcodone 325 MG/5 MG TAB PO PRN ×2 (08:33→12:45)
[2018-01-31] MEDS: SODIUM CHLORIDE 0.9% FLUSH 10 ML FLUSH IV FLUSH SCH (08:34)
[2018-01-31] MEDS: LACTOBACILLUS ACIDOPHILUS TAB PO SCH (08:34)
[2018-01-31] MEDS ORDERED: REGADENOSON INJ 0.4 MG/5 ML SYR ONE (10:59)
[2018-01-31] MEDS ORDERED: AMINOPHYLLINE INJ 250 MG/10 ML VIAL IV ONE (11:24)
[2018-01-31 12:03] VITALS: BP 126/78; PULSE 87; RESP 18; TEMP 98.1; O2SAT 99
--- NOTE | 2018-01-31 12:44 | RADRPT ---
EXAM DATE/TIME: 01/30/2018 14:59 [facility] COMPARISON: No previous studies available for comparison. INDICATIONS : Substernal chest pain with dyspnea and syncopal episode. Angina. DOSE: 31.5 mCi Tc99m Myoview at stress. 30.0 mCi Tc99m Myoview at rest. 0.4 mg Lexiscan STRESS SYMPTOMS: Dyspnea and heart racing. MEDICATIONS: 1.) 100 mg Aminophylline IV EJECTION FRACTION: 56% MEDICAL HISTORY : Leukemia. Asthma. SURGICAL HISTORY : Tubal ligation. ENCOUNTER: Initial ACUITY: >1 yr PAIN SCALE: 5/10 LOCATION: Substernal chest TECHNIQUE: The patient underwent pharmacologic stress with infusion of prescribed dose. Continuous ECG tracing was monitored during stress. Gated SPECT imaging was performed after stress and conventional SPECT i maging was performed at rest. The examination was performed on a SPECT/CT scanner, both attenuation and non-corrected datasets were reviewed. FINDINGS: DISTRIBUTION: The maximum perfused segment at stress is in the septal wall. PERFUSION STUDY: The pattern of perfusion at stress is within normal limits. GATED STUDY: There is intact wall motion and thickening without hypokinetic or dyskinetic segments. CONCLUSION: No evidence of reversible or fixed defects of perfusion. No abnormal wall motility.. RISK CATEGORY: Low risk Samantha Roe MD on January 31, 2018 at 12:39 Board Certified Radiologist. This report was verified electronically.
--- NOTE | 2018-01-31 15:08 | HHI.DS ---
Discharge Summary Admission Date Jan 29, 2018 at 15:40 Discharge Date: Jan 31, 2018 Admitting Diagnosis Chest pain with leukocytosis (1) Atypical chest pain ICD Code: R07.89 - Other chest pain Status: Acute (2) CML (chronic myelocytic leukemia) ICD Code: C92.10 - Chronic myeloid leukemia Status: Acute (3) Bandemia ICD Code: D72.825 - Increased band cell count Status: Acute (4) Nausea & vomiting ICD Code: R11.2 - Nausea and vomiting Status: Acute Procedures Stress test Brief History - From Admission 27-year-old female with a history of CML in to the ED for evaluation of 34 day history of atypical substernal chest pain with radiation to her back as well as numbness and tingling of fingers. Patient reports worsening symptoms of chest pain with deep inspiration and palpation. She denies any trauma. Initial cardiac enzymes unremarkable. Normal labs include W BC of 20,000 however patient denies any febrile episode, cough, dysuria. She's had multiple workups for chest pain all resulted with negative PE in the past. She appears very anxious during my exam. Patient also reported 2 episodes of nausea and vomiting. CBC/BMP: 01/30/18 0645 01/30/18 0645 Significant Findings Laboratory Tests Test 01/29/18 11:30 01/30/18 03:02 01/30/18 06:45 White Blood Count 20.8 TH/MM3 (4.0-11.0) Neutrophils (%) (Auto) 74.1 % (16.0-70.0) Neutrophils # (Auto) 15.4 TH/MM3 (1.8-7.7) Monocytes # (Auto) 1.7 TH/MM3 (0-0.9) 1.2 TH/MM3 (0-0.9) Band Neutrophils % 7 % (0-6) Neutrophils # (Manual) 15.4 TH/MM3 (1.8-7.7) Metamyelocytes 2 % (0-1) Activated Partial Thromboplast Time 22.0 SEC (24.3-30.1) Creatine Kinase MB LESS THAN 0.5 NG/ML Troponin I LESS THAN 0.02 NG/ML Urine Occult Blood SMALL (NEG) Urine Leukocyte Esterase TRACE (NEG) Urine RBC 13 /hpf (0-3) Urine Bacteria RARE /hpf (NONE) Urine Mucus FEW /lpf (OCC) Red Blood Count 3.89 MIL/MM3 (4.00-5.30) Hematocrit 34.8 % (35.0-46.0) Monocytes (%) (Auto) 10.5 % (0.0-8.0) Albumin 3.2 GM/DL (3.4-5.0) Aspartate Amino Transf (AST/SGOT) 12 U/L (15-37) Chloride Level 108 MEQ/L (98-107) Imaging Last Impressions Myocardial Perfusion Scan Nuc Med 01/30/18 0000 Signed Impressions: Service Date/Time: Tuesday, January 30, 2018 14:59 - CONCLUSION: No evidence of reversible or fixed defects of perfusion. No abnormal wall motility.. RISK CATEGORY: Low risk Samantha Roe MD Chest X-Ray 01/29/18 0000 Signed Impressions: Service Date/Time: January 11:36 - CONCLUSION: 1. No acute findings identified. Soren Barros MD PE at Discharge GENERAL: This is a well-nourished, well-developed patient, in no apparent distress. SKIN: No rashes, ecchymoses or lesions. Cool and dry. HEAD: Atraumatic. Normocephalic. No temporal or scalp tenderness. EYES: Pupils equal round and reactive. Extraocular motions intact. No scleral icterus. No injection or drainage. ENT: Nose without bleeding, purulent drainage or septal hematoma. Throat without erythema, tonsillar hypertrophy or exudate. Uvula midline. Airway patent. NECK: Trachea midline. No JVD or lymphadenopathy. Supple, nontender, no meningeal signs. CARDIOVASCULAR: Regular rate and rhythm without murmurs, gallops, or rubs. RESPIRATORY: Clear to auscultation. Breath sounds equal bilaterally. No wheezes , rales, or rhonchi. TTP on deep palpation GASTROINTESTINAL: Abdomen soft, non-tender, nondistended. No hepato-splenomegaly , or palpable masses. No guarding. MUSCULOSKELETAL: Extremities without clubbing, cyanosis, or edema. No joint tenderness, effusion, or edema noted. No calf tenderness. Negative Homans sign bilaterally. NEUROLOGICAL: Awake and alert. Cranial nerves II through XII intact. Motor and sensory grossly within normal limits. Five out of 5 muscle strength in all muscle groups. Normal speech. Pt update on day of discharge Patient is in bed she was seen after the stress test. She comes case of chest pain pleuritic in nature reproducible also by palpation. His ibuprofen that she takes at home helps more with the pain, narcotic says does not help much with the pain. Denies any chills. No nausea vomiting diarrhea or constipation she is eating well. No cough, fever or chills. Hospital Course 27 year-old female with Atypical chest pain. Pleuritic in nature. Chest x-ray noted and review by me without any cardio pulmonary disease Most likely to be costochondritis Initial cardiac enzyme unremarkable 2-D echo reviewed and is negative . Had stress testing is normal. Pain medications Bandemia. Resolved unclear of what can be the source CXR without any pulmonary infiltrate UA suggestive of UTI, urine cx negative antibiotics Start empiric cefepime and monitor culture report. Discontinue antibiotics History of CML Resume Tasigna (Nilotinib) 150 Mg Cap 150 Mg PO Q12H. Follow with DVT prophylaxis: Bilateral SCDs Code Status Full code Discussed Condition With Patient, nurse The patient improved, has normal echo and normal stress test. Cleared by consultants for discharge. Patient discharged home in stable condition to follow-up with PCP and consultants as outpatient. Pt Condition on Discharge: Stable Discharge Disposition: Discharge Home Discharge Time: > 30 minutes Discharge Instructions DIET: Follow Instructions for: As Tolerated, No Restrictions Activities you can perform: Regular-No Restrictions Follow up Referrals: Oncology/Hematology - 1 Week PCP Follow-up - 2-3 Days New Medications: Hydrocodone/Acetaminophen (Hydrocodone-Acetamin 5-325 mg) 5 Mg-325 Mg Tablet 1 TAB PO Q4H PRN for BREAKTHROUGH PAIN, #10 TAB Ibuprofen (Ibuprofen) 400 Mg Tab 400 MG PO Q6HR for Pain Management, #60 TAB Continued Medications: Nilotinib (Tasigna) 150 Mg Cap 150 MG PO Q12H for Chemotherapy Management, CAP 0 Refills Take on empty stomach Janie Alfonso MD Jan 31, 2018 15:08
[2018-01-31] MEDS ORDERED: IBUP1TAB5 PO (15:10)
[2018-01-31] MEDS ORDERED: HYDR-3516 PO (15:10)
[2018-01-31] MEDS ORDERED: KETOROLAC TROMETHAMINE 30 MG/ML (IVP) VIAL IV PUSH ONE (15:15)
[2018-01-31 16:04] LABS: BASOPHIL # 0.1 TH/MM3 (0-0.2); BASOPHIL % 1.2 % (0.0-2.0); EOSINOPHIL # 0.2 TH/MM3 (0-0.4); EOSINOPHIL % 1.6 % (0.0-4.0); HEMATOCRIT 37.1 % (35.0-46.0); HEMOGLOBIN 12.3 GM/DL (11.6-15.3); LYMPH % 19.3 % (9.0-44.0); LYMPHOCYTE # 2.2 TH/MM3 (1.0-4.8); MEAN CELL VOLUME 88.8 FL (80.0-100.0); MEAN CORPUSCULAR HEMOGLOBIN 29.4 PG (27.0-34.0); MEAN CORPUSCULAR HGB CONC 33.1 % (32.0-36.0); MEAN PLATELET VOLUME 8.6 FL (7.0-11.0); MONO % 8.3 % (0.0-8.0); NEUT % 69.6 % (16.0-70.0); PLATELET COUNT 210 TH/MM3 (150-450); RED BLOOD COUNT 4.18 MIL/MM3 (4.00-5.30); RED CELL DISTRIBUTION WIDTH 15.7 % (11.6-17.2); WHITE BLOOD COUNT 11.4 TH/MM3 (4.0-11.0)
[2018-01-31 16:28] LABS: BICARBONATE 27.4 MEQ/L (21.0-32.0); CALCIUM 8.4 MG/DL (8.5-10.1); CREATININE 0.72 MG/DL (0.50-1.00)
[2018-01-31 16:34] LABS: BANDS 2 % (0-6); BASOPHILS 2 % (0-2); LYMPHOCYTES 15 % (9-44); METAMYELOCYTES 1 % (0-1); MONOCYTES 11 % (0-8); POLYS (SEG NEUTROPHILS) 67 % (16-70)
== END 2018-01-31 16:38 | disposition home or self-care (01) ==
LOC: NEPC 10:47 → NEDA 15:40 → NEPHCDU 17:24
PROVIDERS: ADMIT Hospitalist; ATTEND Hospitalist
DX: R07.89 Other chest pain (principal); C92.10 Chronic myeloid leukemia, BCR/ABL-positive, not having achieved remission; R11.2 Nausea with vomiting, unspecified; R55 Syncope and collapse; D72.825 Bandemia; R20.0 Anesthesia of skin; R20.2 Paresthesia of skin; M79.7 Fibromyalgia; G89.29 Other chronic pain; J45.909 Unspecified asthma, uncomplicated; M19.90 Unspecified osteoarthritis, unspecified site; Z91.19 Patient's noncompliance with other medical treatment and regimen; Z82.49 Family history of ischemic heart disease and other diseases of the circulatory system
CPT/HCPCS: 71045; 78452; 80048; 80053; 81001; 82550; 82552; 83735; 84484; 85007; 85025; 85027; 85610; 85730; 93005; 93017; 93306; 96361; 96365; 96366; 96375; 96376; 99285; A9502; G0378; J0280; J0692; J1885; J2405; J2785; J7030

== ENCOUNTER 2018-05-23 22:58 | Inpatient (IN) ==
[2018-05-23] MEDS ORDERED: Morphine Inj 4 MG/ML Vial IV.PUSH ONE (23:54)
--- NOTE | 2018-05-23 23:54 | ED ---
HPI General Chief Complaint: Chest Pain Stated Complaint: Sob Time Seen by Provider: 05/23/18 23:44 History of Present Illness HPI narrative: Patient is a leukemia patient who gets chemo presents with chest pain. Pain is described as midsternal, nonradiating, 8 out of 10, intermittent , 30 seconds in duration, she is headed since Friday. Similar pain in the past and was secondary to her chemo she was told. She reports chills and vomiting p.o. intake, and cough shortness of breath with the pain and pedal edema. She denies fever or nausea. No chemo since Fri or , but she's supposed to take it QD. Complete Quality Measures for STEMI Alert Patients Related Data Home Medications Medication Instructions Recorded Confirmed ibuprofen 200 mg PO QID PRN 05/24/18 05/24/18 nilotinib [Tasigna] 300 mg PO Q12H 05/24/18 05/24/18 Allergies Allergy/AdvReac Type Severity Reaction Status Date / Time cat dander Allergy Mild Itching, Verified 05/23/18 23:06 Generalized Review of Systems ROS Unobtainable All other systems reviewed negative except as stated in HPI [facility] Medical History Medical History Asthma (Acute) delivery delivered (Acute) Leukemia (Acute) Social History Social History Recent Travel in [place] within the Last 8 Weeks: No Recent Out of Country Travel within the Last 8 Weeks: No Exam Narrative Exam Narrative: GENERAL: Distress. SKIN: Focused skin assessment warm/dry. HEAD: Atraumatic. Normocephalic. EYES: Pupils equal and round. No scleral icterus. No injection or drainage. ENT: No nasal bleeding or discharge. Mucous membranes pink and moist. NECK: Trachea midline. No JVD. CARDIOVASCULAR: Regular rate and rhythm. No murmur appreciated. Sternal chest wall tender to palpation. RESPIRATORY: No accessory muscle use. Clear to auscultation. Breath sounds equal bilaterally. GASTROINTESTINAL: Abdomen soft, non-tender, nondistended. Hepatic and splenic margins not palpable. MUSCULOSKELETAL: No obvious deformities. No clubbing. No cyanosis. No edema. NEUROLOGICAL: Awake and alert. No obvious cranial nerve deficits. Motor grossly within normal limits. Normal speech. PSYCHIATRIC: Appropriate mood and affect; insight and judgment normal. Course Initial Documented Vital Signs Temperature 98.0 F 05/23/18 23:06 Pulse Rate 89 05/23/18 23:06 Respiratory Rate 18 07/07/18 23:06 Blood Pressure 130/77 05/23/18 23:06 Pulse Oximetry 100 05/23/18 23:06 Last Documented Vital Signs Temperature 98.0 F 05/23/18 23:06 Pulse Rate 89 05/23/18 23:06 Respiratory Rate 18 05/23/18 23:06 Blood Pressure 130/77 05/23/18 23:06 Pulse Oximetry 100 05/23/18 23:06 Medical Decision Making MDM Narrative Medical decision making narrative: Patient presents to the emergency department complaining of chest pain patient placed on cardiac rehabilitation program director, continuous pulse ox , IV access obtained. Chest x-ray/EKG/labs ordered she given 2 mg IV morphine. ECG: SR, rate 77, normal axis, normal intervals CXR: No acute process Labs: elevated wbc count and d-dimer; bd cx, lactic acid, CTA chest ordered CTA-neg for PE, lactic acid-wnl Spoke to Dr Rosa-Admit for IV abx and he will see tomorrow (recommend IV levaquin). Differential Diagnosis Differential Diagnosis: Chemo side effect, costochondritis, ACS, PE, pneumonia Lab Data Result diagrams: 05/24/18 00:26 05/24/18 00:26 Lab Results 05/24/18 05/24/18 05/24/18 Range/Units 00:26 00:26 00:26 WBC 31.1 H (4.0-11.0) th/mm3 RBC 4.36 (4.00-5.30) mil/mm3 Hgb 12.9 (11.6-15.3) gm/dL Hct 37.7 (35.0-46.0) % MCV 86.4 (80.0-100.0) fL MCH 29.5 (27.0-34.0) pg MCHC 34.1 (32.0-36.0) % RDW 17.1 (11.6-17.2) % Plt Count 253 (150-450) th/mm3 MPV 10.7 (7.0-11.0) fL Prelim Diff (Auto) Slide review pending Neut % (Auto) 77.9 H (16.0-70.0) % Lymph % (Auto) 12.9 (9.0-44.0) % [place] % (Auto) 6.9 (0.0-8.0) % Eos % (Auto) 1.5 (0.0-4.0) % Baso % (Auto) 0.8 (0.0-2.0) % Neut # (Auto) 24.2 H (1.8-7.7) th/mm3 Lymph # (Auto) 4.0 (1.0-4.8) th/mm3 [place] # (Auto) 2.1 H (0.0-0.9) th/mm3 Eos # (Auto) 0.5 H (0.0-0.4) th/mm3 Baso # (Auto) 0.2 (0.0-0.2) th/mm3 WBC Differential Manual diff final Seg Neuts % (Manual) 60 (16-70) % Band Neuts % (Manual) 13 H (0-6) % Lymphocytes % (Manual) 14 (9-44) % Monocytes % (Manual) 5 (0-8) % Basophils % (Manual) 3 H (0-2) % Metamyelocytes % (Man) 2 H (0-1) % Myelocytes % (Man) 2 H (0-0) % Promyelocytes % (Man) 1 H (0-0) % Abs Neuts (Manual) 24.3 H (1.8-7.7) th/mm3 Differential Comment . Dohle Bodies Present H (None) Platelet Estimate Normal (Normal) Platelet Morphology Enlarged H (Normal) PT 10.3 (9.8-11.6) sec INR 1.0 Ratio APTT 27.5 (24.3-30.1) sec D-Dimer Quant (PE/DVT) 0.98 H (0.00-0.50) mg/L FEU Sodium 140 (136-145) meq/L Potassium 4.0 (3.5-5.1) meq/L Chloride 107 (98-107) meq/L Carbon Dioxide 23.4 (21.0-32.0) meq/L Anion Gap 10 (5-15) meq/L BUN 11 (7-18) mg/dL Creatinine 0.98 (0.50-1.00) mg/dL Estimated GFR 81 L (>89) mL/min Random Glucose 92 (74-106) mg/dL Lactic Acid (0.4-2.0) mmol/L Calcium 8.7 (8.5-10.1) mg/dL Total Bilirubin 0.3 (0.2-1.0) mg/dL AST 21 (15-37) U/L ALT 21 (10-53) U/L Alkaline Phosphatase 66 (45-117) U/L Total Creatine Kinase 125 (26-192) U/L CK-MB (CK-2) Less than 0.5 L (0.5-3.6) ng/mL Troponin I Less than 0.02 L (0.02-0.05) ng/mL Total Protein 8.1 (6.4-8.2) g/dL Albumin 3.6 (3.4-5.0) g/dL 05/24/18 Range/Units 02:02 WBC (4.0-11.0) th/mm3 RBC (4.00-5.30) mil/mm3 Hgb (11.6-15.3) gm/dL Hct (35.0-46.0) % MCV (80.0-100.0) fL MCH (27.0-34.0) pg MCHC (32.0-36.0) % RDW (11.6-17.2) % Plt Count (150-450) th/mm3 MPV (7.0-11.0) fL Prelim Diff (Auto) Neut % (Auto) (16.0-70.0) % Lymph % (Auto) (9.0-44.0) % [place] % (Auto) (0.0-8.0) % Eos % (Auto) (0.0-4.0) % Baso % (Auto) (0.0-2.0) % Neut # (Auto) (1.8-7.7) th/mm3 Lymph # (Auto) (1.0-4.8) th/mm3 [place] # (Auto) (0.0-0.9) th/mm3 Eos # (Auto) (0.0-0.4) th/mm3 Baso # (Auto) (0.0-0.2) th/mm3 WBC Differential Seg Neuts % (Manual) (16-70) % Band Neuts % (Manual) (0-6) % Lymphocytes % (Manual) (9-44) % Monocytes % (Manual) (0-8) % Basophils % (Manual) (0-2) % Metamyelocytes % (Man) (0-1) % Myelocytes % (Man) (0-0) % Promyelocytes % (Man) (0-0) % Abs Neuts (Manual) (1.8-7.7) th/mm3 Differential Comment Dohle Bodies (None) Platelet Estimate (Normal) Platelet Morphology (Normal) PT (9.8-11.6) sec INR Ratio APTT (24.3-30.1) sec D-Dimer Quant (PE/DVT) (0.00-0.50) mg/L FEU Sodium (136-145) meq/L Potassium (3.5-5.1) meq/L Chloride (98-107) meq/L Carbon Dioxide (21.0-32.0) meq/L Anion Gap (5-15) meq/L BUN (7-18) mg/dL Creatinine (0.50-1.00) mg/dL Estimated GFR (>89) mL/min Random Glucose (74-106) mg/dL Lactic Acid 0.9 (0.4-2.0) mmol/L Calcium (8.5-10.1) mg/dL Total Bilirubin (0.2-1.0) mg/dL AST (15-37) U/L ALT (10-53) U/L Alkaline Phosphatase (45-117) U/L Total Creatine Kinase (26-192) U/L CK-MB (CK-2) (0.5-3.6) ng/mL Troponin I (0.02-0.05) ng/mL Total Protein (6.4-8.2) g/dL Albumin (3.4-5.0) g/dL Imaging Data Radiologist's impression: ITS Impressions Chest X-Ray 05/23/18 23:54 CONCLUSION: No acute cardiopulmonary disease identified. Chest CTA 05/24/18 01:51 CONCLUSION: 1. No evidence of pulmonary embolus. 2. Lungs are clear. 3. 1.4 cm rounded mass in the upper medial right breast. Most likely to represent a fibroadenoma or cysts. Recommend follow-up routine outpatient ultrasound examination. Discharge Plan Discharge Disposition Patient Disposition: 30 Still Patient Discharge Condition Condition: Stable Discharge Details Discharge Problem: Chest pain, Dyspnea Physicians Team ED Provider: Cassandra Art Rxs /Orders / Referrals /Forms Prescriptions: No Action ibuprofen 200 mg Capsule 200 mg PO QID PRN (Reason: Pain) RF: 0 nilotinib [Tasigna] 150 mg Capsule 300 mg PO Q12H RF: 0 Discharge Instructions Patient Printed Instructions: Chest Pain (ED) Status ED Status: With Doctor
--- NOTE | 2018-05-24 01:13 | XR ---
EXAM DATE: 05/24/2018 12:49 AM EDT AGE/SEX: 27 years / Female INDICATIONS: Short of breath. CLINICAL DATA: This is the patient's subsequent encounter. Patient reports that signs and symptoms h ave been present for 1 day and indicates a pain score of 5/10. MEDICAL/SURGICAL HISTORY: None. None. COMPARISON: No prior exams available for comparison. FINDINGS: Single AP view of the chest. The lungs are clear. Cardiomediastinal silhouette within nor mal limits. No evidence of pleural effusion or pneumothorax. CONCLUSION: No acute cardiopulmonary disease identified. Electronically signed by: Og Saavedra MD 05/24/2018 1:11 AM EDT
[2018-05-24 01:34] LABS: Alanine Aminotransferase 21 U/L (10-53); Albumin 3.6 g/dL (3.4-5.0); Alkaline Phosphatase 66 U/L (45-117); Anion Gap 10 meq/L (5-15); Aspartate Aminotransferase 21 U/L (15-37); Blood Urea Nitrogen 11 mg/dL (7-18); Calcium 8.7 mg/dL (8.5-10.1); Carbon Dioxide 23.4 meq/L (21.0-32.0); Chloride 107 meq/L (98-107); Creatine Kinase 125 U/L (26-192); Glomerular Filtration Rate 81 mL/min (>89); Glucose,Random 92 mg/dL (74-106); Sodium 140 meq/L (136-145); Total Protein 8.1 g/dL (6.4-8.2)
[2018-05-24 01:36] LABS: Baso # (Auto) 0.2 th/mm3 (0.0-0.2); Baso % (Auto) 0.8 % (0.0-2.0); Eos # (Auto) 0.5 th/mm3 (0.0-0.4); Eos % (Auto) 1.5 % (0.0-4.0); Hematocrit 37.7 % (35.0-46.0); Hemoglobin 12.9 gm/dL (11.6-15.3); Lymph % (Auto) 12.9 % (9.0-44.0); Mean Corpuscular HGB Conc 34.1 % (32.0-36.0); Mean Corpuscular Hemoglobin 29.5 pg (27.0-34.0); Mean Corpuscular Volume 86.4 fL (80.0-100.0); Mean Platelet Volume 10.7 fL (7.0-11.0); Mono # (Auto) 2.1 th/mm3 (0.0-0.9); Mono % (Auto) 6.9 % (0.0-8.0); Neut # (Auto) 24.2 th/mm3 (1.8-7.7); Neut % (Auto) 77.9 % (16.0-70.0); Platelet Count 253 th/mm3 (150-450); Red Blood Count 4.36 mil/mm3 (4.00-5.30); Red Cell Distribution Width 17.1 % (11.6-17.2); White Blood Count 31.1 th/mm3 (4.0-11.0)
[2018-05-24 01:40] LABS: Activated Partial Thrombo Time 27.5 sec (24.3-30.1); D-Dimer 0.98 mg/L FEU (0.00-0.50); Prothrombin Time 10.3 sec (9.8-11.6)
[2018-05-24 02:10] LABS: Lymphocytes 14 % (9-44); Metamyelocytes 2 % (0-1); Monocytes 5 % (0-8); Myelocytes 2 % (0-0); Promyelocyte 1 % (0-0)
[2018-05-24 02:12] LABS: Dohle Bodies Present; Platelet Estimate Normal (Normal)
--- NOTE | 2018-05-24 02:26 | CT ---
EXAM DATE: 05/24/2018 2:13 AM EDT AGE/SEX: 27 years / Female INDICATIONS: Chest pain; rule out pulmonary embolus. CLINICAL DATA: This is the patient's initial encounter. Patient reports that signs and symptoms have been present for 1 day and indicates a pain score of 6/10. MEDICAL/SURGICAL HISTORY: Asthma. Leukemia. Chemo section. RADIATION DOSE: 10.78 CTDI (mGy) COMPARISON: No prior exams available for comparison. TECHNIQUE: Volumetric scanning was performed using a multi-row detector CT scanner during bolus infu nichole of 50 ml Omnipaque 350 (iohexol) nonionic water-soluble contrast as a single exam dose. The zunilda a was post processed with a variety of visualization algorithms including full volume maximum intensi ty projection and sliding thin slab reformation. Using automated exposure control and adjustment of the mA and/or kV according to patient size, radiation dose was kept as low as reasonably achievable t o obtain optimal diagnostic quality images. DICOM format image data is available electronically for review and comparison. FINDINGS: There is good opacification of the pulmonary arteries. No evidence of pulmonary embolus. Thoracic aorta diameter within normal limits. No enlarged lymph nodes. Lungs are clear. No evidence of pleural effusion or pneumothorax. No evidence of fracture. 1.4 cm rou nded mass in the medial right breast. CONCLUSION: 1. No evidence of pulmonary embolus. 2. Lungs are clear. 3. 1.4 cm rounded mass in the upper medial right breast. Most likely to represent a fibroadenoma or cysts. Recommend follow-up routine outpatient ultrasound examination. Electronically signed by: Og Saavedra MD 05/24/2018 2:25 AM EDT
[2018-05-24] MEDS ORDERED: Acetaminophen 325 MG Tablet PO PRN (03:41)
[2018-05-24] MEDS ORDERED: Temazepam 15 MG Capsule PO PRN (03:41)
[2018-05-24] MEDS ORDERED: Bisacodyl 10 MG Supp RECTAL PRN (03:41)
[2018-05-24] MEDS ORDERED: Morphine Sulfate Inj 2 MG/ML Vial IV.PUSH PRN (03:43)
[2018-05-24] MEDS: Sod Chloride 0.9% Inj 1,000 ML IV.CONT SCH ×2 (06:11→18:03)
[2018-05-24] MEDS: Senna/Docusate Sodium 8.6/50 MG Tablet PO SCH ×2 (08:25→22:30)
--- NOTE | 2018-05-24 08:39 | P.HP ---
History of Present Illness Primary Care Physician: Kingston Melissa Chief Complaint: Chest pain History of Present Illness: Ms. De La Cruz is a pleasant 27-year-old -[place] female with a history of leukemia who presents to the emergency department on 05/23/2018 due to chest pain. Her chest pain was substernal nonradiating and started on Friday, 2017. She had these episodes of chest pain off and on and eventually she decided to come to the hospital on 05/23/2018. She denies any fever chills, shortness of breath, abdominal pain. She had nausea vomiting yesterday. No changes in bowel or bladder habits. Dr. Rosa is her oncologist. Recent cardiac work up: Patient was admitted for chest pain in January 2018. She underwent myocardial perfusion imaging which showed no evidence of reversible or fixed defects of perfusion. Echocardiogram showed ejection fraction 55-60% with normal wall motion. - Diagnosis (1) CML (chronic myelocytic leukemia) (2) Chest pain Inpatient Certification: I certify that the inpatient services were ordered in accordance with Medicare regulations governing the order. This includes certification that hospital inpatient services are reasonable and necessary and in the case of services not specified as inpatient-only under 42 CFR 419.22(n), that they are appropriately provided as inpatient services in accordance to with the 2-midnight benchmark under 43 CFR 412.3(e) Estimated Total Length of Stay (Days): 2 Plans for Post Hospital Care: Not yet determined PMF - History History Provided By: Patient - Medical History Medical History: Medical History (Last Updated 05/23/18 @ 23:09 by Cary De Dios) Asthma delivery delivered Leukemia - Tobacco History Second Hand Smoke Exposure: No Smoking Status: Never smoker - Alcohol History How Often Do You Have a Drink Containing Alcohol: Never - Substance Use History Substance History: No History of Abuse - Travel History Recent Travel in the [place] Within the Last 8 Weeks: No Recent Travel Out of the Country Within the Last 8 Weeks: No - Immunization History Hx Influenza Vaccine This Season: Yes Medications and Allergies Active Medications: Active Medications Acetaminophen (Tylenol) 650 mg PO Q4H PRN PRN Reason: Temp > 100.4 Al Hydroxide/Mg Hydroxide (Milk Of Magnesia Liq) 30 ml PO Q12H PRN PRN Reason: Mild Constipation Bisacodyl (Dulcolax Supp) 10 mg RECTAL DAILY PRN PRN Reason: SEVERE CONSITIPATION Levofloxacin/Dextrose (Levaquin 750 Mg Premix Inj) 150 mls @ 100 mls/hr IV.SIG Q24H [facility] Sodium Chloride (Ns Inj) 1,000 mls @ 100 mls/hr IV.CONT .Q10H [facility] Last Admin: 05/24/18 06:11 Dose: 100 mls/hr Lactulose (Lactulose Liq) 30 ml PO DAILY PRN PRN Reason: SEVERE CONSITIPATION Morphine Sulfate (Morphine Inj) 2 mg IV.PUSH Q3H PRN PRN Reason: pain 6-10 Ondansetron HCl (Zofran Inj) 4 mg IV.PUSH Q6H PRN PRN Reason: NAUSEA OR VOMITING Senna/Docusate Sodium (Lizzy-Colace) 1 tab PO BID [facility] Last Admin: 05/24/18 08:25 Dose: Not Given Sennosides (Senokot) 17.2 mg PO Q12H PRN PRN Reason: Moderate Constipation Sodium Chloride (Ns Flush) 2 ml IV.FLUSH UNSCH PRN PRN Reason: FLUSH AFTER USING IV ACCESS Temazepam (Restoril) 15 mg PO HS PRN PRN Reason: INSOMNIA Tramadol HCl (Ultram) 50 mg PO Q6H PRN PRN Reason: PAIN SCALE 5-10/SEVERE COUGH Allergies Allergy/AdvReac Type Severity Reaction Status Date / Time cat dander Allergy Mild Itching, Verified 05/23/18 23:06 Generalized Home Medications Medication Instructions Recorded Confirmed Type ibuprofen 200 mg PO QID PRN 05/24/18 05/24/18 History nilotinib [Tasigna] 300 mg PO Q12H 05/24/18 05/24/18 History Exam Vital signs: Vital Signs 05/23/18 23:06 05/24/18 05:00 05/24/18 05:11 Temperature 98.0 F 97.9 F Pulse Rate 89 76 77 Respiratory Rate 18 20 Blood Pressure 130/77 96/53 L Pulse Oximetry 100 98 05/24/18 07:00 05/24/18 08:17 Temperature 98.4 F Pulse Rate 81 87 Respiratory Rate 18 Blood Pressure 120/89 Pulse Oximetry 98 Intake & Output 05/23/18 05/24/18 05/24/18 18:59 06:59 18:59 Weight 83.9 kg Other: Date of Last Bowel Movement 05/23/18 05/23/18 Weight On Admission 83.9 kg Narrative: GENERAL: This is a well-nourished, well-developed patient, in no apparent distress. SKIN: No rashes, ecchymoses or lesions. Warm and dry. HEAD: Atraumatic. Normocephalic. No temporal or scalp tenderness. EYES: Pupils equal round and reactive. No injection or drainage. ENT: Nose without bleeding, purulent drainage or septal hematoma. Airway patent. NECK: Trachea midline. No lymphadenopathy. Supple, nontender, no meningeal signs. CARDIOVASCULAR: Regular rate and rhythm without murmurs, gallops, or rubs. No JVD. There is a small nodular mass in the right upper chest area RESPIRATORY: Clear to auscultation. Breath sounds equal bilaterally. No wheezes , rales, or rhonchi. GASTROINTESTINAL: Abdomen soft, non-tender, nondistended. No guarding. MUSCULOSKELETAL: Extremities without clubbing, cyanosis, or edema. NEUROLOGICAL: Awake and alert. Cranial nerves II through XII intact. No focal neurological deficits. Normal speech. Results - Labs CBC & Chem 7: 05/24/18 00:26 05/24/18 00:26 Labs: Laboratory Results - last 24 hr 05/24/18 05/24/18 05/24/18 00:26 00:26 00:26 WBC 31.1 H RBC 4.36 Hgb 12.9 Hct 37.7 MCV 86.4 MCH 29.5 MCHC 34.1 RDW 17.1 Plt Count 253 MPV 10.7 Prelim Diff (Auto) Slide review pending Neut % (Auto) 77.9 H Lymph % (Auto) 12.9 [place] % (Auto) 6.9 Eos % (Auto) 1.5 Baso % (Auto) 0.8 Neut # (Auto) 24.2 H Lymph # (Auto) 4.0 [place] # (Auto) 2.1 H Eos # (Auto) 0.5 H Baso # (Auto) 0.2 WBC Differential Manual diff final Seg Neuts % (Manual) 60 Band Neuts % (Manual) 13 H Lymphocytes % (Manual) 14 Monocytes % (Manual) 5 Basophils % (Manual) 3 H Metamyelocytes % (Man) 2 H Myelocytes % (Man) 2 H Promyelocytes % (Man) 1 H Abs Neuts (Manual) 24.3 H Differential Comment . Dohle Bodies Present H Platelet Estimate Normal Platelet Morphology Enlarged H PT 10.3 INR 1.0 APTT 27.5 D-Dimer Quant (PE/DVT) 0.98 H Sodium 140 Potassium 4.0 Chloride 107 Carbon Dioxide 23.4 Anion Gap 10 BUN 11 Creatinine 0.98 Estimated GFR 81 L Random Glucose 92 Lactic Acid Calcium 8.7 Total Bilirubin 0.3 AST 21 ALT 21 Alkaline Phosphatase 66 Total Creatine Kinase 125 CK-MB (CK-2) Less than 0.5 L Troponin I Less than 0.02 L Total Protein 8.1 Albumin 3.6 05/24/18 02:02 WBC RBC Hgb Hct MCV MCH MCHC RDW Plt Count MPV Prelim Diff (Auto) Neut % (Auto) Lymph % (Auto) [place] % (Auto) Eos % (Auto) Baso % (Auto) Neut # (Auto) Lymph # (Auto) [place] # (Auto) Eos # (Auto) Baso # (Auto) WBC Differential Seg Neuts % (Manual) Band Neuts % (Manual) Lymphocytes % (Manual) Monocytes % (Manual) Basophils % (Manual) Metamyelocytes % (Man) Myelocytes % (Man) Promyelocytes % (Man) Abs Neuts (Manual) Differential Comment Dohle Bodies Platelet Estimate Platelet Morphology PT INR APTT D-Dimer Quant (PE/DVT) Sodium Potassium Chloride Carbon Dioxide Anion Gap BUN Creatinine Estimated GFR Random Glucose Lactic Acid 0.9 Calcium Total Bilirubin AST ALT Alkaline Phosphatase Total Creatine Kinase CK-MB (CK-2) Troponin I Total Protein Albumin - Imaging Impressions Chest X-Ray 05/23/18 23:54 CONCLUSION: No acute cardiopulmonary disease identified. Chest CTA 05/24/18 01:51 CONCLUSION: 1. No evidence of pulmonary embolus. 2. Lungs are clear. 3. 1.4 cm rounded mass in the upper medial right breast. Most likely to represent a fibroadenoma or cysts. Recommend follow-up routine outpatient ultrasound examination. Caprini VTE Risk Assessment Caprini VTE Risk Assessment: No/Low Risk (score <= 1) Caprini Risk Assessment Model: Point Value = 1 Point Value = 2 Point Value = 3 Point Value = 5 Age 41-60 Minor surgery BMI > 25 kg/m2 Swollen legs Varicose veins or History of unexplained or recurrent spontaneous Oral contraceptives or hormone replacement Sepsis (< 1 month) Serious lung disease, including pneumonia (< 1 month) Abnormal pulmonary function Acute myocardial infarction Congestive heart failure (< 1 month) History of inflammatory bowel disease Medical patient at bed rest Age 61-74 Arthroscopic surgery Major open surgery (> 45 min) Laparoscopic surgery (> 45 min) Malignancy Confined to bed (> 72 hours) Immobilizing plaster cast Central venous access Age >= 75 History of VTE Family history of VTE Factor V Leiden Prothrombin [id number] Lupus anticoagulant Anticardiolipin antibodies Elevated serum homocysteine Heparin-induced thrombocytopenia Other congenital or acquired thrombophilia Stroke (< 1 month) Elective arthroplasty Hip, pelvis, or leg fracture Acute spinal cord injury (< 1 month) Prophylaxis Regimen: Total Risk Factor Score Risk Level Prophylaxis Regimen 0-1 Low Early ambulation 2 Moderate Order ONE of the following: *Sequential Compression Device (SCD) *Heparin 5000 units SQ BID 3-4 Higher Order ONE of the following medications: *Heparin 5000 units SQ TID *Enoxaparin/Lovenox 40 mg SQ daily (WT < 150 kg, CrCl > 30 mL/min) *Enoxaparin/Lovenox 30 mg SQ daily (WT < 150 kg, CrCl > 10-29 mL/min) *Enoxaparin/Lovenox 30 mg SQ BID (WT < 150 kg, CrCl > 30 mL/min) AND/OR *Sequential Compression Device (SCD) 5 or more Highest Order ONE of the following medications: *Heparin 5000 units SQ TID (Preferred with Epidurals) *Enoxaparin/Lovenox 40 mg SQ daily (WT < 150 kg, CrCl > 30 mL/min) *Enoxaparin/Lovenox 30 mg SQ daily (WT < 150 kg, CrCl > 10-29 mL/min) *Enoxaparin/Lovenox 30 mg SQ BID (WT < 150 kg, CrCl > 30 mL/min) AND *Sequential Compression Device (SCD) Assessment and Plan - Assessment (1) CML (chronic myelocytic leukemia) Code(s): C92.10 - Chronic myeloid leukemia, BCR/ABL-positive, not having achieved remission Status: Acute (2) Chest pain Code(s): R07.9 - Chest pain, unspecified Status: Acute - Plan Ms. De La Cruz is a pleasant 27-year-old -[place] female with a history of CML who presents to the emergency department due to chest pain that started several days prior to this admission. First troponin negative. CT pulmonary angiogram shows no evidence of PE but shows a 1.4 cm mass in the upper medial right breast. Patient had nuclear stress test done in January 2018. She was also evaluated by cardiology in January. Chest pain -Clinically her pain is atypical. Troponin was negative on admission. Will check a second troponin. -If troponins are negative, patient can likely be discharged home today. CML -patient follows up with Dr. Rosa. Currently on Nilotinib. Full code. Ambulation. (2) Chest pain Qualifiers: Chest pain type: unspecified Qualified Code(s): R07.9 - Chest pain, unspecified
--- NOTE | 2018-05-24 11:20 | ECG ---
Date Performed: 05/23/2018 Time Performed: 23:56:45 PTAGE: 27 years EKG: Sinus rhythm NORMAL ECG PREVIOUS TRACING : 01/29/2018 11.19 No significant change from previous tracing noted. DOCTOR: Ruben Parada Interpretating Date/Time 05/24/2018 11:18:04
--- NOTE | 2018-05-24 11:25 | MB ---
cc: Nilson Rosa MD DATE: 05/24/2018 ATTENDING PHYSICIAN: Dr. Dao. REASON FOR CONSULTATION: Oncology consulted to render opinion regarding a patient with chronic myelogenous leukemia, admitted with chest pain and leukocytosis. HISTORY OF PRESENT ILLNESS: The patient is a 27-year-old female with history of chronic myelogenous leukemia, currently on Tasigna, presented to the hospital with complaint of midsternal chest pain that occasionally radiates up the arm. She stated the episode lasts a few seconds, but did recur quite often. She also has subjective chills without fever. She has occasional cough. She has orthopnea. She had presented to the emergency room multiple times with similar complaints in the past and a workup has been unremarkable. She is supposed to be taking Tasigna for chronic myelogenous leukemia. The patient; however, is very noncompliant with followup. The last time I saw her was when she was admitted to the hospital in January. She again did not followup in clinic and missed multiple appointments. She states that she is taking Tasigna, but missed about 3 days last week because she was busy taking care of her kids. She denies any bleeding or bruising. PAST MEDICAL HISTORY: 1. Chronic myelogenous leukemia. 2. Asthma. 3. Chronic anemia. 4. Rhabdomyolysis. 5. Osteoarthritis. PAST SURGICAL HISTORY: , bilateral tubal ligation, D and C, bone marrow biopsy. FAMILY HISTORY: Mother had cervical cancer and breast cancer. She also had congestive heart failure. SOCIAL HISTORY: No tobacco or alcohol use. ALLERGIES: NO KNOWN DRUG ALLERGIES. CURRENT MEDICATIONS: 1. Levaquin. 2. Lizzy-Colace. REVIEW OF SYSTEMS: CONSTITUTIONAL: As above. EYES: Negative. ENT: Negative. CARDIOVASCULAR: As above. RESPIRATORY: As above. GASTROINTESTINAL: As above. GENITOURINARY: No dysuria or hematuria. MUSCULOSKELETAL: As above. ENDOCRINE: Negative. HEMATOLOGIC: As above. DERMATOLOGY: Negative. PSYCHIATRIC: Negative. NEUROLOGIC: Negative. PHYSICAL EXAMINATION: VITAL SIGNS: Temperature 98.4, blood pressure 120/89, O2 saturation 98% on room air. GENERAL: She is alert, oriented x3, no acute distress. HEENT: Atraumatic, normocephalic. Pupils are equal, round, reactive to light. Extraocular muscles are intact. No scleral icterus. Oropharynx dry mucosa. No lesion, no thrush or mucositis. NECK: No thyromegaly. No palpable mass. LYMPHATIC: No palpable cervical, clavicular, axillary, or inguinal lymph nodes. CARDIOVASCULAR: Regular S1, S2. No murmur. LUNGS: Clear to auscultation bilaterally. No wheeze or rhonchi. ABDOMEN: Soft, nontender, could not palpate liver or spleen. EXTREMITIES: No cyanosis, clubbing or edema. No calf tenderness. BACK: No paravertebral tenderness. SKIN: No rash or petechiae. NEUROLOGIC: Nonfocal. LABORATORY DATA: WBC 31, hemoglobin 12.9, platelet count of 253, creatinine of 0.98. Liver transaminase within normal limits. Total creatinine kinase of 125. ASSESSMENT: 1. Chronic myelogenous leukemia. She first presented in 2009 in chronic phase. She was started on Gleevec, but was noncompliant. She developed progression of disease in 2012 and was switched to Sprycel again with good response. She; however, developed rhabdomyolysis in 12/2013. She stopped treatment for a while and developed progression of disease. The patient started Tasigna in 04/2015. Creatinine kinase started trending up and Tasigna was reduced to 3 pills a day. Since then, she tolerated relatively well; however, she has been very noncompliant with followup. The last time we checked a PCR test was 10/2016. She has missed multiple appointments. She was admitted to the hospital in January with similar symptoms. At that time, workup was unremarkable. She has been to the emergency room multiple times with similar complaint of chest pain, nausea and vomiting. At this time, her white blood cell count trended up to 31,000. There was bandemia noted. This could be due to possible infection; however, we also need to rule out progression of chronic myelogenous leukemia. I think that she is likely noncompliant with taking the Tasigna. I am going to check a PCR test and monitor CBC for now. 2. Leukocytosis as above. This could be a reactive process in addition to the chronic myelogenous leukemia. She was started on Levaquin empirically. We will monitor her culture. Continue to monitor the CBC. 3. Chest pain. She has had recurrent substernal chest pain. She had multiple workup including multiple CT angiogram in the past, which have been unremarkable. Previous cardiology workup was also unremarkable. 4. Arthritis. She has chronic arthralgia and myalgia. 5. Asthma. PLAN: 1. Continue empiric Levaquin. 2. Monitor CBC. 3. We will check a PCR test. 4. Continue Tasigna. Thank you Dr. Dao for asking me to see this patient. MD SOCO James/TL , 10:49 AM , 11:24 AM MTDD
[2018-05-25] MEDS: Sod Chloride 0.9% Inj 1,000 ML IV.CONT SCH ×2 (02:38→03:53)
[2018-05-25 07:33] LABS: Baso # (Auto) 0.4 th/mm3 (0.0-0.2); Baso % (Auto) 1.3 % (0.0-2.0); Eos # (Auto) 0.3 th/mm3 (0.0-0.4); Eos % (Auto) 1.1 % (0.0-4.0); Hematocrit 38.1 % (35.0-46.0); Hemoglobin 12.5 gm/dL (11.6-15.3); Lymph # (Auto) 2.5 th/mm3 (1.0-4.8); Lymph % (Auto) 9.2 % (9.0-44.0); Mean Corpuscular HGB Conc 32.9 % (32.0-36.0); Mean Corpuscular Hemoglobin 28.4 pg (27.0-34.0); Mean Corpuscular Volume 86.5 fL (80.0-100.0); Mean Platelet Volume 9.7 fL (7.0-11.0); Mono # (Auto) 1.7 th/mm3 (0.0-0.9); Mono % (Auto) 6.3 % (0.0-8.0); Neut # (Auto) 22.3 th/mm3 (1.8-7.7); Neut % (Auto) 82.1 % (16.0-70.0); Platelet Count 230 th/mm3 (150-450); Red Cell Distribution Width 16.7 % (11.6-17.2); White Blood Count 27.2 th/mm3 (4.0-11.0)
[2018-05-25 07:38] LABS: Anion Gap 10 meq/L (5-15); Blood Urea Nitrogen 8 mg/dL (7-18); Calcium 8.7 mg/dL (8.5-10.1); Carbon Dioxide 21.8 meq/L (21.0-32.0); Chloride 108 meq/L (98-107); Glomerular Filtration Rate Greater Than 89 mL/min (>89); Glucose,Random 82 mg/dL (74-106); Potassium 3.6 meq/L (3.5-5.1); Sodium 140 meq/L (136-145)
--- NOTE | 2018-05-25 08:54 | P.PN ---
Subjective Interval history: Follow up for chest pain. Patient is resting in bed, no acute concerns. Wants to go home. She did not have any fever prior to this admission or during this admission. Physical Exam Vital signs: Vital Signs 05/24/18 10:43 05/24/18 11:00 05/24/18 11:13 Temperature 98.1 F Pulse Rate 81 99 H Respiratory Rate 18 18 Blood Pressure 99/60 L Pulse Oximetry 98 05/24/18 14:59 05/24/18 15:00 05/24/18 16:43 Temperature 97.3 F L Pulse Rate 89 86 Respiratory Rate 18 18 Blood Pressure 115/71 Pulse Oximetry 98 05/24/18 20:00 05/24/18 20:07 05/24/18 23:58 Temperature 97.6 F 98.1 F Pulse Rate 71 90 78 Respiratory Rate 18 Blood Pressure 114/68 118/63 Pulse Oximetry 97 97 05/25/18 00:03 05/25/18 04:00 05/25/18 04:05 Temperature 97.8 F Pulse Rate 78 69 81 Respiratory Rate 16 Blood Pressure 117/65 Pulse Oximetry 98 05/25/18 07:58 05/25/18 08:11 Temperature 98.1 F Pulse Rate 89 87 Respiratory Rate 20 Blood Pressure 118/78 Pulse Oximetry Intake & Output 05/24/18 05/25/18 05/25/18 18:59 06:59 18:59 Intake Total 2590 / 2590 1390 / 1390 Output Total 1100 / 1100 Balance 2590 / 2590 290 / 290 Weight 84.8 kg Intake: IV 1150 / 1150 1150 / 1150 NS Inj 1,000 ML @ 100 mls/hr IV 1000 / 1000 1000 / 1000 .CONT .Q10H [facility] Rx#:[id number] Levaquin 750 mg Premix Inj 150 150 / 150 150 / 150 ML @ 100 mls/hr IV.SIG Q24H [facility] Rx#:[id number] Oral 1440 / 1440 240 / 240 Output: Urine 1100 / 1100 Other: # Voids 4 Date of Last Bowel Movement 05/23/18 05/25/18 05/25/18 # Bowel Movements 0 1 Narrative: GENERAL: AOX3, NAD. SKIN: Warm and dry. HEAD: Normocephalic. EYES: No scleral icterus. No injection or drainage. NECK: Supple, trachea midline. No JVD or lymphadenopathy. CARDIOVASCULAR: Regular rate and rhythm without murmurs, gallops, or rubs. RESPIRATORY: Breath sounds equal bilaterally. No accessory muscle use. GASTROINTESTINAL: Abdomen soft, non-tender, nondistended. MUSCULOSKELETAL: No cyanosis, or edema. BACK: Nontender without obvious deformity. No CVA tenderness. Results - Labs CBC & Chem 7: 05/25/18 05:35 05/25/18 05:35 Laboratory Results - last 24 hr 05/24/18 05/25/18 05/25/18 09:20 05:35 05:35 WBC 27.2 H RBC 4.40 Hgb 12.5 Hct 38.1 MCV 86.5 MCH 28.4 MCHC 32.9 RDW 16.7 Plt Count 230 MPV 9.7 Prelim Diff (Auto) Slide review pending Neut % (Auto) 82.1 H Lymph % (Auto) 9.2 [place] % (Auto) 6.3 Eos % (Auto) 1.1 Baso % (Auto) 1.3 Neut # (Auto) 22.3 H Lymph # (Auto) 2.5 [place] # (Auto) 1.7 H Eos # (Auto) 0.3 Baso # (Auto) 0.4 H Differential Comment . Sodium 140 Potassium 3.6 Chloride 108 H Carbon Dioxide 21.8 Anion Gap 10 BUN 8 Creatinine 0.78 Estimated GFR Greater than 89 Random Glucose 82 Calcium 8.7 Troponin I Less than 0.02 L Assessment and Plan - Assessment (1) CML (chronic myelocytic leukemia) Code(s): C92.10 - Chronic myeloid leukemia, BCR/ABL-positive, not having achieved remission Status: Acute (2) Chest pain Code(s): R07.9 - Chest pain, unspecified Status: Acute - Plan Ms. De La Cruz is a pleasant 27-year-old -[place] female with a history of CML who presents to the emergency department due to chest pain that started several days prior to this admission. First troponin negative. CT pulmonary angiogram shows no evidence of PE but shows a 1.4 cm mass in the upper medial right breast. Patient had nuclear stress test done in January 2018. She was also evaluated by cardiology in January. Chest pain -Clinically her pain is atypical. Troponins x 2 were negative on admission. CML -patient follows up with Dr. Rosa. Currently on Nilotinib. BCR-ABL PCR pending and can be followed by Dr. Rosa in the office. Blood culture - I discussed with Microbiology lab. No growth. Again, Patient did not have any fever before or during this admission. Full code. Ambulation. Discharge patient to home Condition on discharge: Improved Regular Diet as tolerated Ad Josy activity Rx written: No new Rx. Follow-up with primary care physician and Dr. Rosa PRN or as scheduled. (2) Chest pain Qualifiers: Chest pain type: unspecified Qualified Code(s): R07.9 - Chest pain, unspecified
[2018-05-25 09:14] LABS: Eosinophils 3 % (0-4); Lymphocytes 9 % (9-44); Metamyelocytes 1 % (0-1); Monocytes 9 % (0-8); Myelocytes 8 % (0-0)
[2018-05-25 09:16] LABS: Acanthocytes Occ
[2018-05-25 09:17] LABS: Platelet Estimate Normal (Normal); Platelet Morphology Normal (Normal)
--- NOTE | 2018-05-25 10:46 | P.PNONC ---
Subjective Interval history: Feeling better. CP improved. Remains afebrile. No SOB. No N/V. Objective Vital Signs/Intake & Output: Vital Signs 05/24/18 10:43 05/24/18 11:00 05/24/18 11:13 Temperature 98.1 F Pulse Rate 81 99 H Respiratory Rate 18 18 Blood Pressure 99/60 L Pulse Oximetry 98 05/24/18 14:59 05/24/18 15:00 05/24/18 16:43 Temperature 97.3 F L Pulse Rate 89 86 Respiratory Rate 18 18 Blood Pressure 115/71 Pulse Oximetry 98 05/24/18 20:00 05/24/18 20:07 05/24/18 23:58 Temperature 97.6 F 98.1 F Pulse Rate 71 90 78 Respiratory Rate 18 Blood Pressure 114/68 118/63 Pulse Oximetry 97 97 05/25/18 00:03 05/25/18 04:00 05/25/18 04:05 Temperature 97.8 F Pulse Rate 78 69 81 Respiratory Rate 16 Blood Pressure 117/65 Pulse Oximetry 98 05/25/18 07:58 05/25/18 08:11 Temperature 98.1 F Pulse Rate 89 87 Respiratory Rate 20 Blood Pressure 118/78 Pulse Oximetry Intake & Output 05/24/18 05/25/18 05/25/18 18:59 06:59 18:59 Intake Total 2590 / 2590 1390 / 1390 Output Total 1100 / 1100 Balance 2590 / 2590 290 / 290 Weight 84.8 kg Intake: IV 1150 / 1150 1150 / 1150 NS Inj 1,000 ML @ 100 mls/hr IV 1000 / 1000 1000 / 1000 .CONT .Q10H [facility] Rx#:[id number] Levaquin 750 mg Premix Inj 150 150 / 150 150 / 150 ML @ 100 mls/hr IV.SIG Q24H [facility] Rx#:[id number] Oral 1440 / 1440 240 / 240 Output: Urine 1100 / 1100 Other: # Voids 4 Date of Last Bowel Movement 05/23/18 05/25/18 05/25/18 # Bowel Movements 0 1 Result Diagrams: 05/25/18 05:35 05/25/18 05:35 Laboratory Results: Laboratory Results - last 24 hr 05/25/18 05/25/18 05:35 05:35 WBC 27.2 H RBC 4.40 Hgb 12.5 Hct 38.1 MCV 86.5 MCH 28.4 MCHC 32.9 RDW 16.7 Plt Count 230 MPV 9.7 Prelim Diff (Auto) Slide review pending Neut % (Auto) 82.1 H Lymph % (Auto) 9.2 [place] % (Auto) 6.3 Eos % (Auto) 1.1 Baso % (Auto) 1.3 Neut # (Auto) 22.3 H Lymph # (Auto) 2.5 [place] # (Auto) 1.7 H Eos # (Auto) 0.3 Baso # (Auto) 0.4 H WBC Differential Manual diff final Seg Neuts % (Manual) 59 Band Neuts % (Manual) 9 H Lymphocytes % (Manual) 9 Monocytes % (Manual) 9 H Eosinophils % (Manual) 3 Basophils % (Manual) 2 Metamyelocytes % (Man) 1 Myelocytes % (Man) 8 H Abs Neuts (Manual) 20.9 H Differential Comment . Platelet Estimate Normal Platelet Morphology Normal Acanthocytes (Spur) Occ H Sodium 140 Potassium 3.6 Chloride 108 H Carbon Dioxide 21.8 Anion Gap 10 BUN 8 Creatinine 0.78 Estimated GFR Greater than 89 Random Glucose 82 Calcium 8.7 Objective Remarks: GENERAL: Well-nourished, well-developed patient. SKIN: Warm and dry. HEAD: Normocephalic. EYES: No scleral icterus. No injection or drainage. NECK: Supple, trachea midline. No JVD or lymphadenopathy. LYMPHATIC: No adenopathy. CARDIOVASCULAR: Regular rate and rhythm without murmurs. RESPIRATORY: Breath sounds equal bilaterally. No accessory muscle use. GASTROINTESTINAL: Abdomen soft, non-tender, nondistended. EXTREMITIES: No cyanosis, or edema. MUSCULOSKELETAL: Adequate muscle tone. NEUROLOGICAL: No obvious focal deficit. Awake, alert, and oriented x3. PSYCHIATRIC: Appropriate mood and affect; insight and judgment normal. Assessment/Plan - Plan Assessment: 1. CML - non compliant with treatment. Repeat PCR pending. WBC trended back down. 2. Leukocytosis - WBC trended lower. ?CML vs reactive. BCX pending. Remains afebrile. 2. N/V - resolved. 4. Chest pain - previous negative workup. Improved. PLAN: 1. F/u hematology clinic. 2. Continue Tasigna outpatient.
== END 2018-05-25 10:19 | disposition home or self-care (01) ==
LOC: HCIN 22:58 → NEDA 22:58 → NEPE 22:58 → HCIN 05-24 04:55
PROVIDERS: ADMIT Hospitalist; ATTEND Hospitalist